=== PATIENT | female | born 1995 | race Caucasian/White ===

== ENCOUNTER → 2016-06-21 | Outpatient (CLI) | payer MEDICAID ==
[~2016-06-21] MED LIST: AMOX500C2 PO; CYCL10TA9 PO; NAPR500T3 PO; PRD20T PO; TRIA15CR TP
--- NOTE | 2016-06-21 18:07 | Diagnostic Imaging Report ---
INDICATION: Size and dates. TECHNIQUE: OB sonography performed in the routine fashion. FINDINGS: A single live intrauterine fetus is seen measuring at 9 weeks 4 days by crown-rump length. There was no evidence of subchorionic bleed. heart rate is 133 beats per minute. Ovaries were nonvisualized. There is no free fluid. IMPRESSION: Single live intrauterine fetus measuring 9 weeks 4 days in size. There were no detectable abnormalities. Recommend followup later in for full anatomical survey. Dictated by: Dictated on workstation # [id number]
== END ==
LOC: RAD 13:59
PROVIDERS: ATTEND Family Medicine
DX: Z34.02 Encounter for supervision of normal first pregnancy, second trimester (principal)
CPT/HCPCS: 76801

== ENCOUNTER 2016-09-01 20:27 | Emergency (ER) | payer MEDICAID ==
[~2016-09-01] VITALS: Ht 154.9 cm; Wt 81.6 kg
--- NOTE | 2016-09-01 21:07 | ED GU-Female ---
General Chief Complaint: General Problems/Pain Stated Complaint: GROIN PAIN Nursing Triage Note: PT AMB TO ED REPORTING WAS CHASING HER NEICE 1 HR AGO AND NOW DEVELOPED A DEEP RIGHT GROIN PAIN. DENIES CONTRACTIONS/PELVIC PAIN. Source: patient, family Exam Limitations: no limitations History of Present Illness Time seen by provider: 21:07 Initial Comments 20-year-old female patient presents to the emergency department with complaints of right groin pain. Patient states she was chasing her niece in the yard when she began having right groin pain. States she thinks she pulled muscle. Denies vaginal discharge or vaginal bleeding. Denies falling. Timing/Duration: other (one hour prior to arrival) Severity/Quality: aching Location: groin (right groin) Radiation: none Activities at Onset: other (running) Prior Genitourinary Problems: none Modifying Factors: Worsens With Movement, Worsens With Palpation Associated Symptoms: denies symptoms Allergies and Home Medications Allergies Coded Allergies: No Known Drug Allergies (Unverified , 01/31/09) Home Medications Amoxicillin 500 Mg Capsule, 1 EACH PO TID for 7 Days Prescribed by: MAX BILLINGS on 07/05/132026 Cyclobenzaprine HCl 10 Mg Tablet, 10 MG PO Q8H, #15 Prescribed by: DENIZ JOHNSON on 01/13/16 0032 Naproxen 500 Mg Tablet, 500 MG PO BID, #20 Prescribed by: DENIZ JOHNSON on 01/13/16 0032 Prednisone 20 Mg Tab, 60 MG PO DAILY for 4 Days, Ref 0 Prescribed by: YADI WEI on 01/07/15 2355 Triamcinolone Acetonide 15 Gm Cream..g., 1 GM TP BID, #30 Ref 0 Prescribed by: YADI WEI on 01/07/15 2358 Constitutional: no symptoms reported Respiratory: No cough, No short of breath Cardiovascular: No chest pain, No edema, No palpitations Gastrointestinal: No abdominal pain, No loss of appetite, No nausea, No vomiting Genitourinary: denies burning, denies discharge, denies dysuria, denies frequency, denies flank pain, denies hematuria, pain (right groin pain), denies other (denies vaginal bleeding) : Yes Expected Date of Delivery: Jan 20, 2017 LMP: Mar 05, 2016 Musculoskeletal: No back pain, joint pain (right groin), No joint swelling Skin: no symptoms reported Psychiatric/Neurological: No Symptoms Reported All Other Systemes Reviewed Negative Unless Noted: Yes (Negative excepted noted.) Past Oqrdesk-Koagsh-Akgwqs Hx Patient Social History Alcohol Use: Denies Use Recreational Drug Use: No Smoking Status: Never a Smoker Recent Foreign Travel: No Contact w/Someone Who Travel: No Recent Infectious Disease Expo: No Recent Hopitalizations: No Seasonal Allergies Seasonal Allergies: No Surgeries HX Surgeries: No Respiratory Hx Respiratory Disorders: No Cardiovascular Hx Cardiac Disorders: No Neurological Hx Neurological Disorders: No Reproductive System : Yes Hx : 1 Hx Para: 0 Hx Reproductive Disorders: No Female Reproductive Disorders: Denies Genitourinary Hx Genitourinary Disorders: No Gastrointestinal Hx Gastrointestinal Disorders: No Musculoskeletal Hx Musculoskeletal Disorders: No Endocrine Hx Endocrine Disorders: No HEENT HX ENT Disorders: No Cancer Hx Cancer: No Psychosocial Hx Psychiatric Problems: No Integumentary HX Skin/Integumentary Disorder: No Blood Transfusions Hx Blood Disorders: No Reviewed Nursing Assessment Reviewed/Agree w Nursing PMH: Yes Family Medical History Significant Family History: No Pertinent Family Hx Physical Exam Vital Signs Vital Sign - Last 12Hours 09/01/16 20:39 Temp 97.2 Pulse 102 Resp 20 B/P (MAP) 143/95 O2 Delivery Room Air Capillary Refill : General Appearance: WD/WN, no apparent distress Cardiovascular: normal peripheral pulses, regular rate, rhythm, no murmur Respiratory: lungs clear, normal breath sounds, no respiratory distress Gastrointestinal: normal bowel sounds, non tender, soft, No distended, other ( uteromegaly noted. Rt groin TTP w/o swelling or deformity.) Back: normal inspection, no CVA tenderness, no vertebral tenderness Extremities: normal range of motion, normal inspection, normal capillary refill , pelvis stable, pedal edema (trace pedal edema bilaterally.), other (rt groin TTP.) Neurologic/Psychiatric: no motor/sensory deficits, alert, normal mood/affect, oriented x 3 Skin: normal color, warm/dry Progress/Results/Core Measures Results/Orders Lab Results Laboratory Tests Test 09/01/16 21:03 Range/Units Urine Color YELLOW Urine Clarity SLIGHTLY CLOUDY Urine pH 6 5-9 Urine Specific [place] 1.020 1.016-1.022 Urine Protein NEGATIVE NEGATIVE Urine Glucose (UA) NEGATIVE NEGATIVE Urine Ketones NEGATIVE NEGATIVE Urine Nitrite NEGATIVE NEGATIVE Urine Bilirubin NEGATIVE NEGATIVE Urine Urobilinogen NORMAL NORMAL MG/DL Urine Leukocyte Esterase 2+ H NEGATIVE Urine RBC (Auto) 3+ H NEGATIVE Urine RBC NONE /HPF Urine WBC 5-10 H /HPF Urine Squamous Epithelial Cells 10-25 H /HPF Urine Crystals NONE /LPF Urine Bacteria TRACE /HPF Urine Casts NONE /LPF Urine Mucus SMALL H /LPF Urine Culture Indicated YES My Orders Orders - WARREN JUNG Ua Culture If Indicated (09/01/16 21:00) Heart Tones (09/01/16 21:00) Urine Culture (09/01/16 21:03) Vital Signs/I&O Vital Sign - Last 12Hours 09/01/16 20:39 Temp 97.2 Pulse 102 Resp 20 B/P (MAP) 143/95 O2 Delivery Room Air Departure Communication Progress Notes FHT's 156 per Traci Kimble RN. Laboratory findings discussed with the patient. Plan for discharge to home. Patient given a prescription for 3 days of Keflex. Patient to follow-up this week with her manager of transportation. Impression Impression: Primary Impression: Strain of muscle of right groin region Additional Impressions: Urinary tract infection with 19 completed weeks gestation Disposition: HOME, SELF-CARE Condition: Improved Departure-Patient Inst. Decision time for Depature: 21:41 Referrals: ANNA BURRELL MD (PCP/Family) Primary Care Physician Patient Instructions: Muscle Strain (DC), Urinary Tract Infection, Adult (DC) Add. Discharge Instructions: All discharge instructions reviewed with patient and/or family. Voiced understanding. Medications as instructed. Tylenol [id number]-viy-[id number] as directed for pain. No heavy lifting, pushing, pulling, twisting, bending, climbing 7 days. Follow-up with your manager of transportation this week for recheck. Call for appointment time. Return to the emergency department for worsened pain , numbness, weakness, vaginal bleeding, vaginal discharge, or any other concerns. Scripts Cephalexin (Keflex) 500 Mg Capsule 500 MG PO TID, #6 CAP 0 Refills Prov: WARREN JUNG 09/01/16 WARREN JUNG Sep 01, 2016 21:07
[2016-09-01 21:13] LABS: BILIRUBIN,URINE NEGATIVE (NEGATIVE); KETONES,URINE NEGATIVE (NEGATIVE); LEUKOCYTE ESTERASE ,URINE 2+ (NEGATIVE); NITRITE,URINE NEGATIVE (NEGATIVE); PH,URINE 6 (5-9); PROTEIN,URINE NEGATIVE (NEGATIVE); UROBILINOGEN,URINE NORMAL (NORMAL)
[2016-09-01] MEDS ORDERED: CEPH-507 PO (21:43)
== END 2016-09-01 21:46 | disposition home or self-care (01) ==
LOC: EDUNIT# 20:27 → ER 20:32
DX: O9A.212 Injury, poisoning and certain other consequences of external causes complicating pregnancy, second trimester (principal); S76.911A Strain of unspecified muscles, fascia and tendons at thigh level, right thigh, initial encounter; O23.42 Unspecified infection of urinary tract in pregnancy, second trimester; Z3A.19 19 weeks gestation of pregnancy; X50.9XXA Other and unspecified overexertion or strenuous movements or postures, initial encounter; Y92.096 Garden or yard of other non-institutional residence as the place of occurrence of the external cause
CPT/HCPCS: 81000; 87088; 99283

== ENCOUNTER → 2016-09-20 | Outpatient (CLI) | payer MEDICAID ==
[~2016-09-20] MED LIST changes: +CEPH-507 PO
--- NOTE | 2016-09-20 14:28 | Diagnostic Imaging Report ---
INDICATION: survey. TECHNIQUE: Multiple real-time grayscale images were obtained over the gravid uterus. COMPARISON: 06/21/2016. FINDINGS: The heart rate is 153 beats per. There is adequate amniotic fluid identified. The placenta is posterior. No placenta previa. A survey demonstrates no ventriculomegaly. The cisterna magna and the cerebellum are not well seen. The four-chamber view is not well seen. The stomach and the urinary bladder appear unremarkable. The kidneys demonstrate no hydronephrosis or cystic mass. The upper and lower aspects of the spine are not well seen. The cord insertion and three-vessel cord also are not well demonstrated. This appears to relate to the patient's body habitus and also from position related difficulty. Biometrical measurements are as follows: Biparietal 5.9 cm, age 24 weeks 0 days. Head circumference 21.2 cm, age 23 weeks 2 days. Abdominal circumference 18.1 cm, age 23 weeks 1 days. Femur length 4.0 cm, age 23 weeks 0 days. Sonographic estimate age: 23 weeks 3 days. Sonographic estimated date of delivery: 23. Estimated Weight: 3 gm (+/- 556 gm). LMP percentile: 67%. heart rate: 153 beats per minute. number: 1 of 1. IMPRESSION: The four-chamber view, the upper and lower spine, the cord insertion, cerebellum and the cisterna magna and the three-vessel cord are not well demonstrated on this exam due to large maternal body habitus and position. Reevaluation within two weeks is recommended. Dictated by: Dictated on workstation # [id number]
== END ==
LOC: RAD 11:47
PROVIDERS: ATTEND Family Medicine
DX: Z36 Encounter for antenatal screening of mother (principal); Z3A.23 23 weeks gestation of pregnancy
CPT/HCPCS: 76805

== ENCOUNTER → 2016-10-02 | Outpatient (CLI) | payer MEDICAID ==
[~2016-10-02] MED LIST changes: +DOCU100C37 PO; +HYDR-3812 PO; +IBUP-1773 PO; -NAPR500T3 PO; +NAPR500T4 PO
--- NOTE | 2016-10-02 13:41 | Diagnostic Imaging Report ---
INDICATION: Follow-up spine, four-chamber heart, and cord insertion. TECHNIQUE: Multiple real-time grayscale images were obtained over the gravid uterus. COMPARISON: None FINDINGS: There is a single living intrauterine in a variable presentation. There is normal volume amniotic fluid. The placenta is fundal. There is no previa. The anatomical survey is unremarkable. The heart rate is 149 beats per minute. IMPRESSION: Unremarkable anatomic survey with heart rate of 149 beats per minute. The sonographically estimated gestational age by first sonogram is 24 weeks 2 days and estimated date of confinement January 20, 2017. Dictated by: Dictated on workstation # [id number]
== END ==
LOC: RAD 10:05
PROVIDERS: ATTEND Family Medicine
DX: Z34.02 Encounter for supervision of normal first pregnancy, second trimester (principal); Z3A.24 24 weeks gestation of pregnancy
CPT/HCPCS: 76816

== ENCOUNTER 2016-11-22 14:42 | Outpatient (CLI) | payer MEDICAID ==
[~2016-11-22] VITALS: Ht 154.9 cm; Wt 90.3 kg
[~2016-11-22 14:42] MED LIST changes: -DOCU100C37 PO; -HYDR-3812 PO; -IBUP-1773 PO; +NAPR500T3 PO; -NAPR500T4 PO
[2016-11-22 15:01] VITALS: BP 112/67
[2016-11-22 15:21] LABS: BILIRUBIN,URINE NEGATIVE (NEGATIVE); KETONES,URINE NEGATIVE (NEGATIVE); LEUKOCYTE ESTERASE ,URINE 1+ (NEGATIVE); NITRITE,URINE NEGATIVE (NEGATIVE); PH,URINE 7 (5-9); PROTEIN,URINE 1+ (NEGATIVE); UROBILINOGEN,URINE NORMAL (NORMAL)
[2016-11-22 15:35] LABS: WBC,URINE 2.5 /HPF
[2016-11-22 15:50] VITALS: BP 105/58
[2016-11-22] MEDS ORDERED: LACTATED RINGERS 1,000 ML IV ONE (15:53)
--- NOTE | 2016-11-23 12:54 | Physician Query-Final Dx ---
MINA CHOUDHARY 11/23/16 1254: Clinic Account Progress/Dx Physician Query: Please give diagnosis Date of Service Nov 22, 2016 at 14:42 DEXTER REYNOLDS DO 11/27/16 0628: Clinic Account Progress/Dx DIAGNOSIS: Diagnosis 1. 30 week GA 2. dehydration - treated w/ IVF 3. GBS bacturia MINA CHOUDHARY Nov 23, 2016 12:54 DEXTER REYNOLDS DO Nov 27, 2016 06:28
== END 2016-11-22 18:14 | disposition home or self-care (01) ==
LOC: LDRP 14:42 → WSo 14:42
PROVIDERS: ATTEND Family Medicine
DX: O99.820 Streptococcus B carrier state complicating pregnancy (principal); E86.0 Dehydration; Z3A.30 30 weeks gestation of pregnancy
CPT/HCPCS: 81000; 87088; 96360; 99214

== ENCOUNTER 2016-12-25 21:17 | Outpatient (CLI) | payer MEDICAID ==
[~2016-12-25] VITALS: Ht 152.4 cm; Wt 93.6 kg
[2016-12-25 21:50] LABS: BILIRUBIN,URINE NEGATIVE (NEGATIVE); KETONES,URINE NEGATIVE (NEGATIVE); LEUKOCYTE ESTERASE ,URINE 2+ (NEGATIVE); NITRITE,URINE NEGATIVE (NEGATIVE); PH,URINE 6 (5-9); PROTEIN,URINE 1+ (NEGATIVE); UROBILINOGEN,URINE 1 MG/DL (NORMAL)
[2016-12-25 21:53] VITALS: BP 122/67
[2016-12-25 21:59] LABS: SQUAMOUS EPITHELIAL CELL,UR 0-2 /HPF
[2016-12-25] MEDS ORDERED: AMOX500C2 PO (22:51)
--- NOTE | 2016-12-26 10:49 | Physician Query-Final Dx ---
MINA CHOUDHARY 12/26/16 1049: Clinic Account Progress/Dx Physician Query: Please give diagnosis Date of Service Dec 25, 2016 at 21:17 ANNA BURRELL MD 12/26/16 1328: Clinic Account Progress/Dx DIAGNOSIS: Diagnosis Pelvic pain 36 weeks gestation Decreased movement with reactive NST MINA CHOUDHARY Dec 26, 2016 10:49 ANNA BURRELL MD Dec 26, 2016 13:28
== END 2016-12-25 23:05 | disposition home or self-care (01) ==
LOC: LDRP 21:17 → WSo 21:17
PROVIDERS: ATTEND Family Medicine
DX: O26.93 Pregnancy related conditions, unspecified, third trimester (principal); R10.2 Pelvic and perineal pain; O36.8130 Decreased fetal movements, third trimester, not applicable or unspecified; Z3A.36 36 weeks gestation of pregnancy
CPT/HCPCS: 81000; 87088; 99213

== ENCOUNTER → 2016-12-28 | Outpatient (CLI) | payer MEDICAID ==
--- NOTE | 2016-12-28 11:31 | Diagnostic Imaging Report ---
INDICATION: Excessive growth. TECHNIQUE: Multiple real-time grayscale images were obtained over the gravid uterus. COMPARISON: 10/02/16 FINDINGS: Single live intrauterine with heart rate of 158 beats per minute. The ALBIN appears low and has measurements at the lower limits of normal of 5 cm. biometric data is supplied below. Biometrical measurements are as follows: Biparietal 9.64 cm, age 39 weeks 3 days. Head circumference 33.66 cm, age 38 weeks 5 days. Abdominal circumference 35.13 cm, age 39 weeks 1 days. Femur length 7.17 cm, age 36 weeks 6 days. Sonographic estimate age: 38 weeks 4 days. Sonographic estimated date of delivery: 01/07/17. Estimated Weight: 3519 gm (+/- 514 gm). LMP percentile: 93%. heart rate: 158 beats per minute. number: 1 of 1. IMPRESSION: 1. Single live intrauterine which is in the 93rd percentile for weight. 2. Borderline low amniotic fluid index which is likely in part due to large size. Dictated by: Dictated on workstation # [id number]
== END ==
LOC: RAD 09:43
PROVIDERS: ATTEND Family Medicine
DX: O36.63X0 Maternal care for excessive fetal growth, third trimester, not applicable or unspecified (principal); Z3A.38 38 weeks gestation of pregnancy
CPT/HCPCS: 36415; 76816; 82951; 82952; 82962

== ENCOUNTER 2016-12-29 16:26 | Outpatient (CLI) | payer MEDICAID ==
[~2016-12-29] VITALS: Ht 152.4 cm; Wt 93.6 kg
[2016-12-29 16:41] VITALS: BP 131/63
--- NOTE | 2016-12-31 16:07 | Physician Query-Final Dx ---
RAMY RANGEL 12/31/16 1607: Clinic Account Progress/Dx Physician Query: Please give diagnosis Date of Service Dec 29, 2016 at 16:26 DEXTER REYNOLDS DO 01/14/17 0833: Clinic Account Progress/Dx DIAGNOSIS: Diagnosis 1. 36 wk GA 2. Decreased movement - reactive NST RAMY RANGEL Dec 31, 2016 16:07 DEXTER REYNOLDS DO Jan 14, 2017 08:33
== END 2016-12-29 17:25 | disposition home or self-care (01) ==
LOC: WSo 16:26 → LDRP 16:27 → WSo 17:25
PROVIDERS: ATTEND Family Medicine
DX: O36.8130 Decreased fetal movements, third trimester, not applicable or unspecified (principal); Z3A.36 36 weeks gestation of pregnancy
CPT/HCPCS: 99212

== ENCOUNTER → 2016-12-31 | Outpatient (CLI) | payer MEDICAID ==
[2016-12-31 14:01] VITALS: BP 121/75
--- NOTE | 2016-12-31 14:20 | Diagnostic Imaging Report ---
EXAMINATION: OB ultrasound with biophysical profile. INDICATION: 028.8, decreased amniotic fluid index. FINDINGS: The heart rate is 115 BPM. The presentation is cephalic. The amniotic fluid index is 6.3 cm. The biophysical profile criteria are all met with a total score of 8 out of 8 points. IMPRESSION: The biophysical profile score is 8 out of 8 points. The ALBIN is near the lower limits of normal. Dictated by: Dictated on workstation # [id number]
== END ==
LOC: RAD 12:23
PROVIDERS: ATTEND Family Medicine
DX: O28.8 Other abnormal findings on antenatal screening of mother (principal); Z3A.00 Weeks of gestation of pregnancy not specified
CPT/HCPCS: 76819

== ENCOUNTER → 2017-01-07 | Outpatient (CLI) | payer MEDICAID ==
[~2017-01-07] VITALS: Ht 152.4 cm; Wt 93.7 kg
[2017-01-07 11:40] VITALS: BP 137/84
--- NOTE | 2017-01-07 13:30 | Diagnostic Imaging Report ---
OB ultrasound. Biophysical profile. INDICATION: Low ALBIN. FINDINGS: The heart rate is 130 beats per minute. presentation is cephalic. The ALBIN is 10 cm. Biophysical profile parameters are all normal. IMPRESSION: Total biophysical profile score is 8 out of 8. Dictated by: Dictated on workstation # [id number]
== END ==
LOC: RAD 10:38
PROVIDERS: ATTEND Family Medicine
DX: O28.8 Other abnormal findings on antenatal screening of mother (principal); Z3A.00 Weeks of gestation of pregnancy not specified
CPT/HCPCS: 76819

== ENCOUNTER 2017-01-09 22:27 | Inpatient (IN) | payer MEDICAID ==
[~2017-01-09] VITALS: Ht 152.4 cm; Wt 95.3 kg
[2017-01-09 22:45] VITALS: BP 135/97
[2017-01-09] MEDS ORDERED: D5 LR IV SOLUTION 1,000 ML IV ONE (22:55)
[2017-01-09] MEDS ORDERED: AMPICILLIN 2000 MG INJECTION (IM/IV) ONE (22:55)
[2017-01-09] MEDS ORDERED: NS (IVPB) 50 ML ONE (22:56)
[2017-01-09 23:00] VITALS: BP 134/90
[2017-01-09] MEDS: AMPICILLIN INJECTION 2,000 MG in NS (IVPB) 50 ML IV ONE (23:20)
[2017-01-09] MEDS: D5 LR IV SOLUTION 1,000 ML IV SCH (23:20)
[2017-01-09] MEDS ORDERED: BUTORPHANOL INJ 2 MG/ML (STADOL) VIAL ONE (23:44)
[2017-01-09] MEDS: BUTORPHANOL INJ 2 MG/ML (STADOL) VIAL IV PRN (23:55)
[2017-01-10] VITALS (39 sets, daily range): BP systolic 108–139; BP diastolic 59–93
[2017-01-10 00:36] LABS: BASOPHILS % (AUTO) 0 % (0-10); EOSINOPHILS % (AUTO) 1 % (0-10); LYMPHOCYTES # (AUTO) 3.2 X 10^3 (1.0-4.0); LYMPHOCYTES % (AUTO) 21 % (12-44); MEAN CORPUSCULAR HEMOGLOBIN 30 PG (25-34); MEAN CORPUSCULAR HGB CONC 34 G/DL (32-36); MEAN CORPUSCULAR VOLUME 88 FL (80-99); MEAN PLATELET VOLUME 10.8 FL (7.4-10.4); MONOCYTES % (AUTO) 8 % (0-12); NEUTROPHILS # (AUTO) 10.3 X 10^3 (1.8-7.8); NEUTROPHILS % (AUTO) 69 % (42-75); PLATELET COUNT 224 10^3/uL (130-400); RED BLOOD COUNT 3.98 10^6/uL (4.35-5.85); RED CELL DISTRIBUTION WIDTH 16.4 % (10.0-14.5)
[2017-01-10 00:37] LABS: EOSINOPHILS # (AUTO) 0.2 10^3/uL (0.0-0.3); MONOCYTES # (AUTO) 1.3 X 10^3 (0.0-1.0)
[2017-01-10 00:38] LABS: ANISOCYTOSIS SLIGHT; BAND NEUTROPHILS 0 %; BASOPHILS % (MANUAL) 0 %; EOSINOPHILS % (MANUAL) 0 %; LYMPHOCYTES % (MANUAL) 20 %; NEUTROPHILS % (MANUAL) 72 %; POLYCHROMASIA SLIGHT
[2017-01-10] MEDS ORDERED: D5 LR IV SOLUTION 1,000 ML IV SCH (00:40)
[2017-01-10] MEDS ORDERED: MINERAL OIL CONCENTRATE 99.9% 15 ML UDC TOP PRN (00:45)
[2017-01-10] MEDS ORDERED: ONDANSETRON 4 MG/2 ML (SDV) Z0FRAN IVP PRN ×2 (00:45→12:00)
[2017-01-10] MEDS: BUTORPHANOL INJ 2 MG/ML (STADOL) VIAL IV PRN ×2 (01:05→03:42)
[2017-01-10] MEDS: AMPICILLIN INJECTION 1,000 MG in NS (IVPB) 50 ML IV SCH ×2 (03:41→07:30)
[2017-01-10] MEDS: AMPICILLIN INJECTION 2,000 MG in NS (IVPB) 50 ML IV ONE (03:41)
[2017-01-10] MEDS: D5 LR IV SOLUTION 1,000 ML IV SCH ×2 (05:42→09:59)
[2017-01-10] MEDS ORDERED: CATHETER FLUSH 10 ML SYR IV SCH ×2 (06:00→14:00)
[2017-01-10] MEDS ORDERED: SUFENTA 0.6MCG/ML BUPIVA 0.125 100 ML ONE (06:35)
[2017-01-10] MEDS ORDERED: BUPIVACAINE 0.25% 30 ML (SENSORCAINE) VIAL ONE (06:38)
[2017-01-10] MEDS ORDERED: LIDOCAINE PF 2% 5 ML (XYLOCAINE) VIAL ONE ×2 (06:38→09:55)
[2017-01-10] MEDS ORDERED: fentaNYL INJECTION 100 MCG/2 ML AMP ONE ×2 (06:38→09:55)
--- NOTE | 2017-01-10 07:43 | Progress Note (SOAP) ---
Subjective Subjective/Events-last exam At 38 4/7 wks gestation was admitted last night with spontaneous rupture of membranes with clear fluid noted. The patient is reported to be GBS positive and has NKDA, and was started on Ampicillin 2 grams IVPB, then 1 gram IVPB every 4 hours until delivery. She has been afebrile overnight. She has refused an epidural, but has already received 4 doses of IV stadol, and I was contacted by the nursing staff due to concerns about FHR tracing and additional doses of IV narcotics - FHR tracing is overall "okay" but is not currently reactive and pt having some variables with a dysfunctional contraction pattern. Patient having difficulty breathing with contractions, reports that she did not want an epidural because she knows a lot of people who have back problems from it, but she "just wants this baby out". Mother, FOB, and other family members present at bedside. They report that estimated weight was ~8 lbs last week. Review of Systems Date Seen by Provider: Jan 10, 2017 Time Seen by Provider: 05:30 General: No Chills, No Night Sweats, Fatigue HEENT: No Head Aches, No Visual Changes, No Eye Pain Pulmonary: No Dyspnea, No Cough Cardiovascular: Edema, No: Chest Pain, Palpitations Gastrointestinal: No: Nausea, Vomiting Genitourinary: No Incontinence, No Retention Musculoskeletal: back pain Neurological: No: Weakness, Numbness, Change in speech, Seizures Objective Exam Last Set of Vital Signs Vital Signs Date Time Temp Pulse Resp B/P (MAP) Pulse Ox O2 Delivery O2 Flow Rate FiO2 01/10/17 06:50 90 18 126/71 Room Air 01/10/17 06:20 98.6 Capillary Refill : General: Alert, Oriented X3, Cooperative, No Acute Distress HEENT: Atraumatic, Mucous Memb Moist/[place] Neck: Supple, No Thyromegaly Lungs: Normal Air Movement Abdomen: Soft (palpates soft between contractions), Other (contractions moderate to palpation) Extremities: No Clubbing, No Cyanosis Skin: No Rashes, No Significant Lesion Neuro: Normal Speech, Normal Tone, Sensation Intact, Cranial Nerves 3-12 NL Psych/Mental Status: Mental Status NL, Mood NL Results/Procedures Lab Laboratory Tests 01/09/17 23:15: White Blood Count 15.0H, Red Blood Count 3.98L, Hemoglobin 11.8, Hematocrit 35, Mean Corpuscular Volume 88, Mean Corpuscular Hemoglobin 30, Mean Corpuscular Hemoglobin Concent 34, Red Cell Distribution Width 16.4H, Platelet Count 224, Mean Platelet Volume 10.8H, Neutrophils (%) (Auto) 69, Lymphocytes (%) (Auto) 21 , Monocytes (%) (Auto) 8, Eosinophils (%) (Auto) 1, Basophils (%) (Auto) 0, Neutrophils # (Auto) 10.3H, Lymphocytes # (Auto) 3.2, Monocytes # (Auto) 1.3H, Eosinophils # (Auto) 0.2, Basophils # (Auto) 0.0, Neutrophils % (Manual) 72, Lymphocytes % (Manual) 20, Monocytes % (Manual) 8, Eosinophils % (Manual) 0, Basophils % (Manual) 0, Band Neutrophils 0, Polychromasia SLIGHT, Anisocytosis SLIGHT Assessment/Plan Assessment/Plan Admission Dx Spontaneous Rupture of Membranes 38 4/7 wks Gestation GBS Positive Active Labor Plan Spontaneous Rupture of Membranes at 38 4/7 wks Gestation -afebrile -continue to monitor temp GBS Positive -ampicillin for GBS prophylaxis Active Labor -FHR Category II now, after receiving several doses of IV Stadol -FHR Category I on arrival, reassuring and reactive initially -contractions every 1.5-3 minutes -patient very intolerant to position changes due to discomfort, and having difficulty breathing with contractions -discussed options, patient and family are in agreement that she will try an epidural for pain control and see if that helps her progress, as she has not made significant progress in the last 2 hours -- was 5 cm at 0330, is still 5 cm now at 0530 SVE done after epidural placement, FHR remains Category II. Dr. Thornton contacted , notified of pt admission, events overnight, FHR tracing, somewhat dysfunctional contraction pattern, head currently in ROP position, she will assume care. Care of patient turned over to Dr. Thornton at this time. BROOK SEVERINO DO Jan 10, 2017 07:43
[2017-01-10] MEDS ORDERED: LACTATED RINGERS 1,000 ML IV ONE (07:51)
[2017-01-10] MEDS ORDERED: diphenhydrAMINE 50 MG/ML INJ (BENADRYL) IV PRN (08:00)
[2017-01-10] MEDS ORDERED: EPIDURAL (SUFENTA 0.6MCG/ML BUPIVA 0.125%) 100 ML BAG EPI SCH (08:00)
[2017-01-10] MEDS ORDERED: ONDANSETRON 4 MG/2 ML (SDV) Z0FRAN IV PRN (08:00)
[2017-01-10] MEDS ORDERED: CATHETER FLUSH 10 ML SYR IV PRN (08:00)
[2017-01-10] MEDS ORDERED: NALOXONE 0.4 MG/ML 1 ML (NARCAN) VIAL IV PRN (08:00)
[2017-01-10] MEDS ORDERED: METOCLOPRAMIDE INJ 10 MG/2 ML (REGLAN) ONE (09:43)
[2017-01-10] MEDS ORDERED: FAMOTIDINE 20MG/2ML IV (PEPCID) ONE (09:44)
[2017-01-10] MEDS ORDERED: CITRIC ACID/SOB CIT (BICITRA) 30 ML UDC ONE (09:44)
[2017-01-10] MEDS ORDERED: BUPIVACAINE 0.5% 30 ML (SENSORCAINE) VIAL ONE (09:55)
[2017-01-10] MEDS ORDERED: ceFAZolin 2 GM/50 ML NS 50 ML ONE (09:58)
--- NOTE | 2017-01-10 10:02 | History & Physical-OB ---
OB - Chief Complaint & HPI Date/Time Date of Admission: Date of Admission: Jan 10, 2017 at 12:33 am Time Seen by Provider: 09:30 Chief Complaint/History OB-Reason for Admission/Chief: Rupture of Membranes Hx : 1 Hx Para: 0 Expected Date of Delivery: Jan 20, 2017 Gestational Age in Weeks: 38 Gestational Age in Days: 4 History of Labs A negative, antibody negative, RI. HIV/HepB/RPR NR. GC/chlamydia neg. Declined tetra screen. Normal 1 hour glucose tolerance test. GBS positive. Allergies and Home Medications Allergies Coded Allergies: No Known Drug Allergies (Unverified , 01/31/09) Home Medications No Active Prescriptions or Reported Meds OB - History Hx of Present Care: Yes Ultrasounds: Abnormal US findings (borderline low ALBIN at 36w3d with EFW 3500, repeat BPP/ALBIN weekly since with nml ALBIN and 10/23 BPP) Obstetrical Complications: None Medical Complications: None Obstetrical History Hx : 1 Hx Para: 0 Delivery History Hx Blood Disorders: No Patient Past Medical History PMHx: Denies PSurgHx: Denies Social History/Family History HIV/AIDS: No Recent Infectious Disease Expo: No Sexually Transmitted Disease: No Alcohol Use: Denies Use Recreational Drug Use: No Smoking Cessation: Never smoker Immunizations Date of Influenza Vaccine: Dec 05, 2016 Rubella: immune RPR/VDRL: Negative GBS Status: Positive HBsAG: Negative OB - Admission Exam Physical Exam Vitals: Vital Signs 01/10/17 01/10/17 06:20 08:15 Temp 98.6 Pulse 88 Resp 18 B/P (MAP) 125/78 Pulse Ox 100 O2 Delivery Room Air HEENT: NCAT Abdomen: Gravid Cervical Dilatation: 6cm Effacement: Other (90%) Station: -2 Membranes: Ruptured Amniotic Fluid: Clear Decelerations: Variable Decelerations Short Term Variability: Present Contractions on Admission: < 5 Minutes Apart Labs Laboratory Tests Test 01/09/17 23:15 Range/Units White Blood Count 15.0 H 4.3-11.0 10^3/uL Red Blood Count 3.98 L 4.35-5.85 10^6/uL Hemoglobin 11.8 11.5-16.0 G/DL Hematocrit 35 35-52 % Mean Corpuscular Volume 88 80-99 FL Mean Corpuscular Hemoglobin 30 25-34 PG Mean Corpuscular Hemoglobin Concent 34 32-36 G/DL Red Cell Distribution Width 16.4 H 10.0-14.5 % Platelet Count 224 130-400 10^3/uL Mean Platelet Volume 10.8 H 7.4-10.4 FL Neutrophils (%) (Auto) 69 42-75 % Lymphocytes (%) (Auto) 21 12-44 % Monocytes (%) (Auto) 8 0-12 % Eosinophils (%) (Auto) 1 0-10 % Basophils (%) (Auto) 0 0-10 % Neutrophils # (Auto) 10.3 H 1.8-7.8 X 10^3 Lymphocytes # (Auto) 3.2 1.0-4.0 X 10^3 Monocytes # (Auto) 1.3 H 0.0-1.0 X 10^3 Eosinophils # (Auto) 0.2 0.0-0.3 10^3/uL Basophils # (Auto) 0.0 0.0-0.1 10^3/uL Neutrophils % (Manual) 72 % Lymphocytes % (Manual) 20 % Monocytes % (Manual) 8 % Eosinophils % (Manual) 0 % Basophils % (Manual) 0 % Band Neutrophils 0 % Polychromasia SLIGHT Anisocytosis SLIGHT OB - Assessment/Plan/Diagnosis Assessment Assessment: group B positive strep, rupture of membranes, other ( intolerance of labor with protracted labor) Plan Plan: Expectant Management Other Plan -Discussed increasing frequency and depth of variable decelerations with Dr. Rocha and given minimal cervical undercover operator several hours with recurrent variable decelerations and prolonged decelerations, and after discussion with Roro and her family, decision made to proceed to for intolerance and protracted labor. -Ampicillin started on admission for GBS positive status Copy Copies To 1: ANNA BURRELL MD, BETHANY N MD Jan 10, 2017 10:01 am
[2017-01-10] MEDS ORDERED: OXYTOCIN/NORMAL SALINE 1,000 ML IV ONE (10:10)
--- NOTE | 2017-01-10 10:13 | Progress Note-Standard ---
Standard Progress Note Progress Notes/Assess & Plan Date Seen by Provider: Jan 10, 2017 Time Seen by Provider: 10:05 Progress/Assessment & Plan this 21-year-old is a intrapartum consult from Dr. Thornton for intolerance of labor. The patient was admitted last evening spontaneous rupture membranes was noted. She had intermittent heart rate tracings that were unfavorable with variables down into the 80s to 90s, she is progressed only to 6 cm however continues to have a baseline that is in the 100s with variables down into the 60s at times. scalp electrode was placed, which revealed this was tracing due to lack of progression and intolerance of labor section was recommended. Risk was briefly reviewed with the patient and her family was bedside versus risks to the fetus. Consent was obtained and patient is taken to the operating room for urgent procedure. LUKE MAGUIRE DO Jan 10, 2017 10:13
[2017-01-10] MEDS: KETOROLAC 30 MG/ML VIAL IVP SCH ×3 (10:30→23:27)
[2017-01-10] MEDS ORDERED: KETAMINE HCL 100 MG/ML 5 ML VIAL ONE (10:33)
[2017-01-10] MEDS ORDERED: KETOROLAC 30 MG/ML VIAL ONE (11:02)
[2017-01-10] MEDS ORDERED: OXYTOCIN/NORMAL SALINE 500 ML IV SCH (11:46)
--- NOTE | 2017-01-10 11:49 | Discharge Inst-Women's Service ---
Discharge Inst-Women's Serv Depart Medication/Instructions New, Converted or Re-Newed RX: RX on Chart Consults/Follow Up Additional Follow Up: Yes Orders/Referrals Dr. Rocha in 7-[address] Thornton in 6 weeks. Activity Activity: Activity as Tolerated Driving Instructions: No Driving for 1 Week NO SMOKING: NO SMOKING Nothing Inside Vagina: No Douching, No [place], No Tampons Diet Discharge Diet: No Restrictions Symptoms to Report to : Bleeding Excessive, Pain Increased, Fever Over 101 Degrees F, Vaginal Bleeding Increase, Questions/Concerns For Any Problems or Questions: Contact Your Physician Skin/Wound Care Infection Signs and Symptoms: Increased Redness, Foul Odor of Wound, Increased Drainage, Skin Itchy or Has a Rash, Increased Swelling, Temperature Above 101 F Operative Area Clean and Dry: Keep Incision Clean/Dry Stitches/Niyah/Dermabond: Dermabond, Care of Stitches Bathing Instructions: LUKE Adamson DO Jan 10, 2017 11:49
[2017-01-10] MEDS ORDERED: HYDR-3812 PO ×2 (11:54)
[2017-01-10] MEDS ORDERED: IBUP-1773 PO ×2 (11:54)
[2017-01-10] MEDS ORDERED: DOCU100C37 PO ×2 (11:54)
[2017-01-10] MEDS ORDERED: TETANUS,DIPTH,PERTUSS P/F (BOOSTRIX) 0.5 ML VIAL IM SCH (12:00)
[2017-01-10] MEDS ORDERED: MEASLES,MUMPS,RUBELLA 1 EA INJ SC SCH (12:00)
[2017-01-10] MEDS ORDERED: HYDROmorphone (DILAUDID) 2 MG/ML VIAL IVP PRN (12:00)
[2017-01-10] MEDS: HYDROcodone/APAP 5 MG/325 MG (LORTAB) TAB PO PRN (16:26)
[2017-01-10] MEDS: CATHETER FLUSH 10 ML SYR IV SCH ×2 (20:25→23:27)
[2017-01-10] MEDS: DOCUSATE SODIUM 100 MG (COLACE) CAP PO SCH (21:28)
--- NOTE | 2017-01-11 00:49 | OPERATIVE REPORT ---
DATE OF SERVICE: PREOPERATIVE DIAGNOSES: 1. A 21-year-old at 38 weeks and 4 days gestation. 2. intolerance of labor. POSTOPERATIVE DIAGNOSES: 1. A 21-year-old at 38 weeks and 4 days gestation. 2. intolerance of labor. PROCEDURE: Primary low transverse section. SURGEON: Booker Rocha DO CLINICAL LEADER: Jessica Ordaz, MS3 ANESTHESIA: Epidural, which was bolused. ESTIMATED BLOOD LOSS: 400 mL. URINE OUTPUT: 500 mL, concentrated at the end of the procedure. FLUID: 500 mL of lactated Ringer solution. FINDINGS: Live male infant weighing 7 pounds 10 ounces, Apgars of 9 and 9. Grossly normal appearing uterus, bilateral fallopian tubes and ovaries. SPECIMEN SENT: Placenta. INDICATIONS FOR PROCEDURE: This 21-year-old female who is a patient who had sought care with Dr. Thornton in her office. She had an unremarkable with the exception of measuring large for dates and having a history of obesity. The patient presented with spontaneous rupture of membranes last evening and was expectantly managed overnight. There were variable decelerations noted throughout the night; however, they became much more repetitive in nature and dropping down into the 80s to 90s. There was also a baseline change down to the 100s to 110s. At this point, the patient had progressed to 6 cm; however, there have been no descent in station. With repetitive variable decelerations and a prolonged episode of deceleration, Dr. Thornton consulted me for emergent delivery. When I presented, I discussed with the patient the indication, all of her questions were answered pertaining to that. I also briefly discussed with her and her family the risk of . After all of her questions were answered, consent was obtained, the patient was taken to the operating room. OPERATIVE REPORT IN DETAIL: Once in the operating room, epidural analgesia was bolused and found to be adequate. She was placed in a supine position with lateral tilt and prepped and draped in normal sterile fashion. A timeout was performed and anesthesia was tested. After this, a Pfannenstiel skin incision was made with a knife and carried down to the underlying fascia using Bovie cautery. The fascial incision was extended laterally using Bovie cautery. Superior aspect of the fascial incision was then grasped with Flower clamps, tented up and dissected off the underlying rectus muscles. The inferior aspect of the fascial incision was then grasped with Flower clamps, tented up and dissected off the underlying rectus muscles. Rectus muscle was then dissected in the midline using Lozada scissors, which exposed the peritoneum, which I entered bluntly and extended using blunt traction. Once peritoneal access was obtained, I placed Jacoby ring retractor in the peritoneal incision, which offers excellent lateral sidewall retraction. The lower uterine segment was identified and found to be thinned out. I made a low transverse incision to the vesicouterine peritoneum and bluntly dissected off the lower uterine segment. I proceeded with my myotomy until membranes were visualized at which point, rupture of membranes through my incision is noted as well. I extended the uterine incision laterally and superiorly using bandage scissors. I find the in the occiput posterior presentation. I placed my hand beneath the infant's presenting head and elevated up to the incision where with gentle fundal pressure, I am able to deliver the 's head through the incision where the nares and oropharynx were bulb suctioned. The anterior and posterior shoulders were delivered. The was then brought into the operative field, where the cord was duly clamped and cut and infant was handed off to Dr. Thornton, who was waiting to assess the infant for delivery. Cord blood was collected, 3-vessel cord with intact placenta is delivered spontaneously thereafter. IV Pitocin is initiated to facilitate uterine contraction. Uterine fundus became firmer with bimanual massage. The uterus was then exteriorized and cleared off all endometrial clots and debris. I then closed the uterine incision using 0 Vicryl suture in a running locking fashion. A second layer of imbricating 0 Monocryl was placed. Excellent hemostasis was noted after doing this. I then placed the uterus back within the pelvis and copiously irrigated the pelvis using normal saline. Once again, no active bleeding was noted from any of my dissection planes. I placed Interceed antiadhesive over my low transverse incision and proceeded with closing the peritoneum using 3-0 Vicryl suture in running fashion. The rectus muscles were reapproximated using 3-0 Vicryl suture in interrupted fashion. The fascia was reapproximated using 0 Vicryl suture in running fashion. The subcutaneous tissue was reapproximated using 3-0 plain in an interrupted subcutaneous stitch and the skin reapproximated using 4-0 Monocryl in a running subcuticular. Dermabond was applied to the incision and a sterile dressing with adhesive white tape. The patient tolerated the procedure well and was taken to recovery area in stable condition. Lap and sponge count was correct at the end of the procedure. Instrument count was correct as well. Job ID: [id number] DocumentID: [id number] Dictated Date: 01/10/2017 11:44:16 Compliance Examiner Date: 01/10/2017 18:21:00 Dictated By: BOOKER ROCHA DO
[2017-01-11] MEDS: HYDROcodone/APAP 5 MG/325 MG (LORTAB) TAB PO PRN ×2 (02:42→11:04)
[2017-01-11] MEDS: CATHETER FLUSH 10 ML SYR IV SCH ×2 (05:17→23:04)
[2017-01-11] MEDS: KETOROLAC 30 MG/ML VIAL IVP SCH (05:17)
[2017-01-11 05:33] VITALS: BP 132/68
--- NOTE | 2017-01-11 06:52 | Progress Note-Standard ---
Standard Progress Note Progress Notes/Assess & Plan Date Seen by Provider: Jan 11, 2017 Time Seen by Provider: 06:51 Progress/Assessment & Plan this patient is without complaint. She is ambulating, voiding, tolerating by mouth well, has good pain control. Patient denies chest pain, denies shortness of breath, denies nausea vomiting, denies headache. Vital Signs Date Time Temp Pulse Resp B/P (MAP) Pulse Ox O2 Delivery O2 Flow Rate FiO2 01/11/17 05:33 98.7 109 18 132/68 99 Room Air 01/10/17 23:30 98.1 114 18 132/79 99 Room Air 01/10/17 20:10 96.8 88 18 129/79 98 Room Air 01/10/17 15:54 Room Air 01/10/17 15:28 98.6 89 18 111/67 98 01/10/17 10:15 90 129/79 100 Non Rebreather 15.00 01/10/17 10:00 77 109/59 100 Non Rebreather 15.00 01/10/17 09:40 95 14 123/70 100 Non Rebreather 15.00 01/10/17 09:30 101 126/71 100 Non Rebreather 15.00 01/10/17 09:15 101 126/71 100 Non Rebreather 15.00 01/10/17 09:00 90 116/61 100 Room Air 01/10/17 08:45 80 124/76 99 Room Air 01/10/17 08:30 81 124/75 100 Room Air 01/10/17 08:15 88 18 125/78 100 Room Air 01/10/17 08:00 88 18 125/78 100 Room Air 01/10/17 07:55 82 129/84 96 Room Air 01/10/17 07:50 100 113/63 100 Room Air 01/10/17 07:45 100 123/71 Room Air 01/10/17 07:40 91 123/68 99 Room Air 01/10/17 07:35 94 118/68 100 Room Air 01/10/17 07:30 85 117/63 Room Air 01/10/17 07:26 85 116/61 97 Room Air 01/10/17 07:23 88 116/65 01/10/17 07:20 90 115/67 97 Room Air 01/10/17 07:16 95 123/72 95 Room Air 01/10/17 07:13 91 116/67 Room Air 01/10/17 07:10 88 16 125/66 97 Room Air 01/10/17 07:00 96 20 133/76 100 Room Air 01/10/17 06:57 89 20 134/73 100 Room Air vital signs are stable. Patient afebrile. The abdomen is benign. The surgical incision is clean dry and intact. Extremities show no clubbing or cyanosis. There is no Homans sign. There is some pretibial pitting edema that is normal. assessment and plan operative day number 1 status post primary delivery doing well. Plan for routine convalescence care today and consider discharge home tomorrow VESTA CALERO MD Jan 11, 2017 6:52 am
[2017-01-11 07:25] LABS: BASOPHILS % (AUTO) 0 % (0-10); EOSINOPHILS # (AUTO) 0.1 10^3/uL (0.0-0.3); EOSINOPHILS % (AUTO) 0 % (0-10); LYMPHOCYTES # (AUTO) 2.4 X 10^3 (1.0-4.0); LYMPHOCYTES % (AUTO) 16 % (12-44); MEAN CORPUSCULAR HEMOGLOBIN 29 PG (25-34); MEAN CORPUSCULAR HGB CONC 32 G/DL (32-36); MEAN CORPUSCULAR VOLUME 90 FL (80-99); MEAN PLATELET VOLUME 10.1 FL (7.4-10.4); MONOCYTES # (AUTO) 1.3 X 10^3 (0.0-1.0); MONOCYTES % (AUTO) 9 % (0-12); NEUTROPHILS # (AUTO) 10.9 X 10^3 (1.8-7.8); NEUTROPHILS % (AUTO) 75 % (42-75); PLATELET COUNT 164 10^3/uL (130-400); RED BLOOD COUNT 3.24 10^6/uL (4.35-5.85); RED CELL DISTRIBUTION WIDTH 16.5 % (10.0-14.5); WHITE BLOOD COUNT 14.6 10^3/uL (4.3-11.0)
[2017-01-11 08:57] VITALS: BP 112/73
[2017-01-11] MEDS: DOCUSATE SODIUM 100 MG (COLACE) CAP PO SCH ×2 (08:58→21:22)
[2017-01-11] MEDS: IBUPROFEN 600 MG (MOTRIN) TAB PO SCH ×3 (11:04→23:59)
[2017-01-11 14:45] VITALS: BP 117/69
--- NOTE | 2017-01-11 14:53 | Anesthesia-Regional Post-Op ---
Regional Patient Condition Mental Status: Alert, Oriented x3 Circulation: Same as Pre-Op Headache: Absent Sensation: Full Recovery Motor Block: Absent Post Op Complications Complications None Follow Up Care/Instructions Patient Instructions None needed. Anesthesia/Patient Condition Patient is doing well, no complaints, stable vital signs, no apparent adverse anesthesia problems. No complications reported per nursing. D/C home per [facility] Criteria: No ANCA KNUTSON CRNA Jan 11, 2017 14:53
[2017-01-11 17:55] VITALS: BP 111/74
[2017-01-11 20:10] VITALS: BP 118/77
[2017-01-12] VITALS: BP 117/80
[2017-01-12] MEDS: HYDROcodone/APAP 5 MG/325 MG (LORTAB) TAB PO PRN (00:02)
[2017-01-12 02:55] VITALS: BP 114/65
[2017-01-12] MEDS: IBUPROFEN 600 MG (MOTRIN) TAB PO SCH ×2 (05:29→13:30)
--- NOTE | 2017-01-12 08:20 | Progress Note-Standard ---
Standard Progress Note Progress Notes/Assess & Plan Date Seen by Provider: Jan 12, 2017 Time Seen by Provider: 08:19 Progress/Assessment & Plan this patient is without complaint. She is ambulating, voiding, tolerating by mouth well, has good pain control. Patient denies chest pain, denies shortness of breath, denies nausea vomiting, denies headache. Vital Signs Date Time Temp Pulse Resp B/P (MAP) Pulse Ox O2 Delivery O2 Flow Rate FiO2 01/11/17 05:33 98.7 109 18 132/68 99 Room Air 01/10/17 23:30 98.1 114 18 132/79 99 Room Air 01/10/17 20:10 96.8 88 18 129/79 98 Room Air 01/10/17 15:54 Room Air 01/10/17 15:28 98.6 89 18 111/67 98 01/10/17 10:15 90 129/79 100 Non Rebreather 15.00 01/10/17 10:00 77 109/59 100 Non Rebreather 15.00 01/10/17 09:40 95 14 123/70 100 Non Rebreather 15.00 01/10/17 09:30 101 126/71 100 Non Rebreather 15.00 01/10/17 09:15 101 126/71 100 Non Rebreather 15.00 01/10/17 09:00 90 116/61 100 Room Air 01/10/17 08:45 80 124/76 99 Room Air 01/10/17 08:30 81 124/75 100 Room Air 01/10/17 08:15 88 18 125/78 100 Room Air 01/10/17 08:00 88 18 125/78 100 Room Air 01/10/17 07:55 82 129/84 96 Room Air 01/10/17 07:50 100 113/63 100 Room Air 01/10/17 07:45 100 123/71 Room Air 01/10/17 07:40 91 123/68 99 Room Air 01/10/17 07:35 94 118/68 100 Room Air 01/10/17 07:30 85 117/63 Room Air 01/10/17 07:26 85 116/61 97 Room Air 01/10/17 07:23 88 116/65 01/10/17 07:20 90 115/67 97 Room Air 01/10/17 07:16 95 123/72 95 Room Air 01/10/17 07:13 91 116/67 Room Air 01/10/17 07:10 88 16 125/66 97 Room Air 01/10/17 07:00 96 20 133/76 100 Room Air 01/10/17 06:57 89 20 134/73 100 Room Air vital signs are stable. Patient afebrile. The abdomen is benign. The surgical incision is clean dry and intact. Extremities show no clubbing or cyanosis. There is no Homans sign. There is some pretibial pitting edema that is normal. assessment and plan operative day number 1 status post primary delivery doing well. Plan for routine convalescence care today and consider discharge home tomorrow January 12, 2017 Patient is without complaint. She is ambulating, voiding, tolerating by mouth well, has good pain control, patient is requesting discharge home. Vital Signs Date Time Temp Pulse Resp B/P (MAP) Pulse Ox O2 Delivery O2 Flow Rate FiO2 01/12/17 05:29 102 99 01/12/17 02:55 98.7 113 18 114/65 99 01/12/17 00:00 99.8 118 18 117/80 99 01/11/17 20:10 98.1 99 18 118/77 98 01/11/17 17:55 98.7 109 18 111/74 Room Air 01/11/17 14:45 98.0 99 18 117/69 98 Room Air 01/11/17 08:57 96.7 90 20 112/73 98 Room Air the abdomen is benign. Surgical incision is clean dry and intact. Extremities show clubbing cyanosis. There is no Homans sign. Assessment and plan postoperative day number 2 status post delivery. Patient is cleared for discharge home Final Diagnosis term operative delivery VESTA CALERO MD Jan 12, 2017 8:20 am
[2017-01-12 10:15] VITALS: BP 112/76
[2017-01-12 13:30] VITALS: BP 113/63
== END 2017-01-12 15:35 | disposition home or self-care (01) | DRG 766 ==
LOC: LDRP 22:27 → WSo 22:27 → LDRP 01-10 00:33
PROVIDERS: ADMIT Family Medicine; ATTEND Family Medicine
PROC: 3E0P05Z Introduction of Adhesion Barrier into Female Reproductive, Open Approach (ICD-10-PCS; 2017-01-10)
PROC: 10D00Z1 Extraction of Products of Conception, Low, Open Approach (ICD-10-PCS; principal; 2017-01-10 10:22)
DX: O26.893 Other specified pregnancy related conditions, third trimester (principal); O99.820 Streptococcus B carrier state complicating pregnancy; O76 Abnormality in fetal heart rate and rhythm complicating labor and delivery; Z3A.38 38 weeks gestation of pregnancy; Z37.0 Single live birth; Z23 Encounter for immunization
CPT/HCPCS: 36415; 83033; 85007; 85025; 85027; 86850; 86900; 86901; 88307; 90707; 94664; 99212

== ENCOUNTER 2017-02-16 13:57 | Emergency (ER) | payer MEDICAID ==
[~2017-02-16] VITALS: Ht 152.4 cm; Wt 81.6 kg
[~2017-02-16 13:57] MED LIST changes: +DOCU100C37 PO; +HYDR-3812 PO; +IBUP-1773 PO; -NAPR500T3 PO; +NAPR500T4 PO
--- OUTSIDE RECORDS SUMMARY | 2017-02-16 14:03 | XMS REPORT ---
Author Author JAMESON MORAN [facility] Address [address] [place] [address] Care Team Providers Care Hand Icer Name Role Phone JAMESON MORAN Unavailable PROBLEMS Type Condition ICD9-CM Code ZIQ02-SI Code Onset Dates Condition Status SNOMED Code Problem ALBIN (amniotic fluid index) borderline low O28.8 Active 75226663 Problem GBS bacteriuria R82.71 Active 99592546 Problem Rh negative state in antepartum period, second trimester O09.892 Active 788130567 Problem Gastroesophageal reflux disease without esophagitis K21.9 Active 396896995 Problem Other specified diseases and conditions complicating , childbirth and the puerperium O99.89 Active 193780032 ALLERGIES No Known Allergies SOCIAL HISTORY Never Assessed PLAN OF CARE Activity Details Follow Up bella Reason:keshia VITAL SIGNS Blood pressure systolic 105 mmHg 2016-07-02 Blood pressure diastolic 70 mmHg 2016-07-02 MEDICATIONS Medication Instructions Dosage Frequency Start Date End Date Duration Status 28-0.8 MG Orally daily 1 24h 30 May, 2016 Active RESULTS No Results PROCEDURES Procedure Date Ordered Result Body Site INTRAORL-PERIAPICAL 1 FILM [id number] July 02, 2016 INTRAORL-PERIAPICAL EA ADD FILM July 02, 2016 TOPICAL FLUORIDE VARNISH July 02, 2016 PROPHYLAXIS - ADULT July 02, 2016 INTRAORL-PERIAPICAL EA ADD FILM July 02, 2016 INTRAORL-PERIAPICAL EA ADD FILM July 02, 2016 UNSPEC DIAGNOSTIC PROCEDURE REPORT June 14, 2016 PANORAMIC FILM SEE ALSO CODE [id number] July 02, 2016 IMMUNIZATIONS No Known Immunizations MEDICAL (GENERAL) HISTORY Type Description Date Medical History Pt. 's due date is 2016
--- OUTSIDE RECORDS SUMMARY | 2017-02-16 14:03 | XMS REPORT ---
Author Author ANNA BURRELL Organization [facility] Address [address] [place] [address] Care Team Providers Care Green Pipefitter Name Role Phone SAILAJA BURRELLHANY Unavailable PROBLEMS Type Condition ICD9-CM Code YTT15-[id number] Code Onset Dates Condition Status SNOMED Code Problem ALBIN (amniotic fluid index) borderline low O28.8 Active 64883108 Problem GBS bacteriuria R82.71 Active 10907582 Problem Rh negative state in antepartum period, second trimester O09.892 Active 921261428 Problem Gastroesophageal reflux disease without esophagitis K21.9 Active 466452786 Problem Other specified diseases and conditions complicating , childbirth and the puerperium O99.89 Active 199822709 ALLERGIES No Known Allergies SOCIAL HISTORY Never Assessed PLAN OF CARE Activity Details Follow Up 4 Weeks, 4 Weeks Reason: VITAL SIGNS Height 60 in 2016-08-09 Weight 184 lbs 2016-08-09 Temperature 98.3 degrees Fahrenheit 2016-08-09 Heart Rate 100 bpm 2016-08-09 Respiratory Rate 20 2016-08-09 BMI 35.935 kg/m2 2016-08-09 Blood pressure systolic 120 mmHg 2016-08-09 Blood pressure diastolic 88 mmHg 2016-08-09 MEDICATIONS Medication Instructions Dosage Frequency Start Date End Date Duration Status 28-0.8 MG Orally daily 1 24h 30 May, 2016 Active RESULTS Name Result Date Reference Range UA OB DIP (IN HOUSE) 2016-08-09 Glucose negative Protein trace PROCEDURES Procedure Date Ordered Result Body Site URINE-NO MICRO August 09, 2016 IMMUNIZATIONS No Known Immunizations MEDICAL (GENERAL) HISTORY Type Description Date Medical History Pt. 's due date is 2016
--- OUTSIDE RECORDS SUMMARY | 2017-02-16 14:03 | XMS REPORT ---
Author Author DEXTER REYNOLDS [facility] Address [address] [place] [address] Care Team Providers Care Marine Insulator Name Role Phone DEXTER REYNOLDS Unavailable PROBLEMS Type Condition ICD9-CM Code XSD72-DE Code Onset Dates Condition Status SNOMED Code Problem GBS bacteriuria R82.71 Active 23351501 Problem Gastroesophageal reflux disease without esophagitis K21.9 Active 955309292 Problem Other specified diseases and conditions complicating , childbirth and the puerperium O99.89 Active 099435601 Problem Rh negative state in antepartum period, second trimester O09.892 Active 836007554 ALLERGIES No Information SOCIAL HISTORY Never Assessed PLAN OF CARE VITAL SIGNS MEDICATIONS Unknown Medications RESULTS Name Result Date Reference Range TEST, URINE (IN HOUSE) 2016-06-11 RESULTS Positive Lot # [id number] Control + Exp date 09/2017 PROCEDURES Procedure Date Ordered Result Body Site URINE TEST June 11, 2016 IMMUNIZATIONS No Known Immunizations MEDICAL (GENERAL) HISTORY Type Description Date Medical History Pt. 's due date is 2016
[2017-02-16] MEDS ORDERED: ASPIRIN 81 MG CHEW (CHILDREN'S ASA) PO STA (14:29)
[2017-02-16 14:50] LABS: BASOPHILS % (AUTO) 0 % (0-10); EOSINOPHILS # (AUTO) 0.5 10^3/uL (0.0-0.3); EOSINOPHILS % (AUTO) 7 % (0-10); LYMPHOCYTES # (AUTO) 2.8 X 10^3 (1.0-4.0); LYMPHOCYTES % (AUTO) 39 % (12-44); MEAN CORPUSCULAR HEMOGLOBIN 28 PG (25-34); MEAN CORPUSCULAR HGB CONC 33 G/DL (32-36); MEAN CORPUSCULAR VOLUME 85 FL (80-99); MEAN PLATELET VOLUME 9.8 FL (7.4-10.4); MONOCYTES # (AUTO) 0.6 X 10^3 (0.0-1.0); MONOCYTES % (AUTO) 8 % (0-12); NEUTROPHILS # (AUTO) 3.3 X 10^3 (1.8-7.8); NEUTROPHILS % (AUTO) 46 % (42-75); PLATELET COUNT 193 10^3/uL (130-400); RED BLOOD COUNT 4.55 10^6/uL (4.35-5.85); RED CELL DISTRIBUTION WIDTH 15.2 % (10.0-14.5); WHITE BLOOD COUNT 7.2 10^3/uL (4.3-11.0)
[2017-02-16] MEDS ORDERED: LIDOCAINE 2% VISCOUS 15 ML UDC PO ONE (15:00)
[2017-02-16] MEDS ORDERED: ANTACID SUSP 30 ML UDC (MYLANTA) PO ONE (15:00)
[2017-02-16 15:07] LABS: ALANINE AMINOTRANSFERASE 31 U/L (0-55); ALBUMIN 3.9 GM/DL (3.2-4.5); ANION GAP 10 MMOL/L (5-14); ASPARTATE AMINO TRANSFERASE 32 U/L (5-34); BILIRUBIN,TOTAL 0.5 MG/DL (0.1-1.0); BLOOD UREA NITROGEN 10 MG/DL (7-18); BUN/CREATININE RATIO 12; CALCIUM 9.1 MG/DL (8.5-10.1); CARBON DIOXIDE 23 MMOL/L (21-32); CHLORIDE 109 MMOL/L (98-107); CREATININE SERUM 0.85 MG/DL (0.60-1.30); GFR ESTIMATED > 60; GLUCOSE 89 MG/DL (70-105); POTASSIUM 3.9 MMOL/L (3.6-5.0); SODIUM 142 MMOL/L (135-145); TOTAL PROTEIN 7.4 GM/DL (6.4-8.2); hs C REACTIVE PROTEIN 0.33 MG/DL (0.00-0.50)
--- NOTE | 2017-02-16 15:07 | ED Chest Pain ---
General Chief Complaint: Chest Pain Stated Complaint: CP Nursing Triage Note: pt reports medial cp starting at 1400 when taking her mothers dog outside to the bathroom. pt reports pain felt like a crushing pain. pt reports she became nauseated and vomited once. pt reports upon arrival pain has reduced. Nursing Sepsis Screen: No Definite Risk Source: patient Exam Limitations: no limitations History of Present Illness Time seen by provider: 14:33 Initial Comments Here with report of acute onset of central chest discomfort that she states is sharp and painful and persistent. Onset at about 2 p.m. after taking the dog out. She became nauseated and vomited once. This did not reduce the pain but it has reduced somewhat since arriving here. Patient states that she occasionally gets burning pain to her chest when she is bending over the bathtub to give her baby a bath. The baby is just over a month old now and she had the baby via . Denies other trauma or injury or other long trips. Denies leg pain or swelling. No family history of blood clots. Has had history of some reflux problems in the past. 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: No NTG SL PIPE FITTER APPRENTICE: No Associated Symptoms: No abdominal pain, No back pain, No diaphoresis, No fatigue, No fever/chills, heartburn, nausea/vomiting, No shortness of breath, No weakness Allergies and Home Medications Allergies Coded Allergies: No Known Drug Allergies (Unverified , 01/31/09) Home Medications No Active Prescriptions or Reported Meds Review of Systems Constitutional: see HPI, No chills, No fever EENTM: No Symptoms Reported Respiratory: No Symptoms Reported Cardiovascular: See HPI, Chest Pain, Denies Edema Gastrointestinal: See HPI, Denies Diarrhea Genitourinary: No Symptoms Reported Musculoskeletal: No back pain, No muscle pain, No neck pain Skin: no symptoms reported, No rash Psychiatric/Neurological: No Symptoms Reported All Other Systems Reviewed Negative Unless Noted: Yes Past Jzhylgx-Biehei-Xbheic Hx Patient Social History Alcohol Use: Denies Use Recreational Drug Use: No Smoking Status: Never a Smoker Recent Foreign Travel: No Contact w/Someone Who Travel: No Recent Infectious Disease Expo: No Recent Hopitalizations: No Physical Abuse: No Sexual Abuse: No Mistreated: No Fear: No Immunizations Up To Date Date of Influenza Vaccine: Dec 05, 2016 Seasonal Allergies Seasonal Allergies: No Surgeries History of Surgeries: Yes Surgeries: Section Respiratory History of Respiratory Disorde: No Cardiovascular History of Cardiac Disorders: No Neurological History of Neurological Disord: No Reproductive System Hx Reproductive Disorders: No Sexually Transmitted Disease: No HIV/AIDS: No Female Reproductive Disorders: Denies Genitourinary History of Genitourinary Disor: No Gastrointestinal History of Gastrointestinal Di: No Musculoskeletal History of Musculoskeletal Dis: No Endocrine History of Endocrine Disorders: No HEENT History of HEENT Disorders: No Cancer History of Cancer: No Psychosocial History of Psychiatric Problem: No Suicide Risk Score: 0 Integumentary History of Skin or Integumenta: No Blood Transfusions History of Blood Disorders: No Reviewed Nursing Assessment Reviewed/Agree w Nursing PMH: Yes Family Medical History Significant Family History: No Pertinent Family Hx Physical Exam Vital Signs Vital Sign - Last 12Hours 02/16/17 14:24 Temp 98.0 Pulse 92 Resp 16 B/P (MAP) 106/69 (81) Pulse Ox 98 O2 Delivery Room Air Capillary Refill : Less Than 3 Seconds General Appearance: No Apparent Distress, WD/WN HEENT: PERRL/EOMI, Pharynx Normal Neck: Non Tender, Supple Respiratory: Lungs Clear, Normal Breath Sounds Cardiovascular: Regular Rate, Rhythm, No Murmur Gastrointestinal: Normal Bowel Sounds, Non Tender, Soft Extremity: Normal Inspection, Normal Range of Motion, Non Tender, No Calf Tenderness Neurologic/Psychiatric: Alert, Oriented x3 Skin: Normal Color, Warm/Dry Progress/Results/Core Measures Results/Orders Lab Results Laboratory Tests Test 02/16/17 14:44 Range/Units White Blood Count 7.2 4.3-11.0 10^3/uL Red Blood Count 4.55 4.35-5.85 10^6/uL Hemoglobin 12.9 11.5-16.0 G/DL Hematocrit 39 35-52 % Mean Corpuscular Volume 85 80-99 FL Mean Corpuscular Hemoglobin 28 25-34 PG Mean Corpuscular Hemoglobin Concent 33 32-36 G/DL Red Cell Distribution Width 15.2 H 10.0-14.5 % Platelet Count 193 130-400 10^3/uL Mean Platelet Volume 9.8 7.4-10.4 FL Neutrophils (%) (Auto) 46 42-75 % Lymphocytes (%) (Auto) 39 12-44 % Monocytes (%) (Auto) 8 0-12 % Eosinophils (%) (Auto) 7 0-10 % Basophils (%) (Auto) 0 0-10 % Neutrophils # (Auto) 3.3 1.8-7.8 X 10^3 Lymphocytes # (Auto) 2.8 1.0-4.0 X 10^3 Monocytes # (Auto) 0.6 0.0-1.0 X 10^3 Eosinophils # (Auto) 0.5 H 0.0-0.3 10^3/uL Basophils # (Auto) 0.0 0.0-0.1 10^3/uL D-Dimer 1.06 H 0.00-0.49 UG/ML Sodium Level 142 135-145 MMOL/L Potassium Level 3.9 3.6-5.0 MMOL/L Chloride Level 109 H 98-107 MMOL/L Carbon Dioxide Level 23 21-32 MMOL/L Anion Gap 10 5-14 MMOL/L Blood Urea Nitrogen 10 7-18 MG/DL Creatinine 0.85 0.60-1.30 MG/DL Estimat Glomerular Filtration Rate > 60 BUN/Creatinine Ratio 12 Glucose Level 89 70-105 MG/DL Calcium Level 9.1 8.5-10.1 MG/DL Total Bilirubin 0.5 0.1-1.0 MG/DL Aspartate Amino Transf (AST/SGOT) 32 5-34 U/L Alanine Aminotransferase (ALT/SGPT) 31 0-55 U/L Alkaline Phosphatase 91 40-136 U/L Troponin I < 0.30 <0.30 NG/ML C-Reactive Protein High Sensitivity 0.33 0.00-0.50 MG/DL Total Protein 7.4 6.4-8.2 GM/DL Albumin 3.9 3.2-4.5 GM/DL My Orders Orders - FRANSISCO HUITRON MD Cbc With Automated Diff (02/16/17 14:29) Comprehensive Metabolic Panel (02/16/17 14:29) Hs C Reactive Protein (02/16/17 14:29) Fibrin Degradation Products (02/16/17 14:29) Troponin I (02/16/17 14:29) Chest Pa/Lat (2 View) (02/16/17 14:29) Aspirin Chewable Tablet (Baby Aspirin Ch (02/16/17 14:29) Saline Lock/Iv-Start (02/16/17 14:29) Lidocaine 2% Viscous 15 Ml (Xylocaine Vi (02/16/17 15:00) Antacid Suspension (Mylanta Suspension (02/16/17 15:00) Ct Angio Chest W (02/16/17 15:21) Ns Iv 1000 Ml (Sodium Chloride 0.9%) (02/16/17 15:21) Urine Bedside (02/16/17 15:21) Iohexol Injection (Omnipaque 350 Mg/Ml 1 (02/16/17 16:15) Ns (Ivpb) (Sodium Chloride 0.9% Ivpb Bag (02/16/17 16:15) Famotidine Injection (Pepcid Injection) (02/16/17 16:43) Ketorolac Injection (Toradol Injection) (02/16/17 16:43) Medications Given in ED Current Medications Medications Dose Ordered Sig/Hernandez Route Start Time Stop Time Status Last Admin Dose Admin Al Hydrox/Mg Hydrox/Simethicone 30 ml ONCE ONCE PO 02/16/17 15:00 02/16/17 15:01 DC 02/16/17 15:12 30 ML Iohexol 100 ml ONCE ONCE IV 02/16/17 16:15 02/16/17 16:18 DC 02/16/17 16:16 100 ML Lidocaine HCl 15 ml ONCE ONCE PO 02/16/17 15:00 02/16/17 15:01 DC 02/16/17 15:12 15 ML Sodium Chloride 100 ml ONCE ONCE IV 02/16/17 16:15 02/16/17 16:18 DC 02/16/17 16:16 80 ML Sodium Chloride 1,000 ml @ 0 mls/hr Q0M ONCE IV 02/16/17 15:21 02/16/17 15:23 DC 02/16/17 15:27 0 MLS/HR Vital Signs/I&O Vital Sign - Last 12Hours 02/16/17 02/16/17 14:24 14:24 Temp 98.0 Pulse 92 Resp 16 B/P (MAP) 106/69 (81) Pulse Ox 98 O2 Delivery Room Air Blood Pressure Mean: 81 Progress Note : Progress Note Seen and evaluated. IV, labs, chest x-ray and EKG ordered. ASA 324 mg by mouth given. Monitor patient. D-dimer is positive. CT angiogram chest ordered. 1635: Patient is having some pain again. Pepcid 20 mg IV and Toradol [address] angiogram is negative for large pulmonary embolism. No significant other findings otherwise. Discharged home with return precautions. Patient verbalize understanding instructions and agreement with plan. Diagnostic Imaging Diagonstic Imaging: CT Plain Films/CT/US/NM/MRI: chest Comments NAME: PAMELA LEE [facility] REC#: [id number] PT STATUS: REG ER : 1995 PHYSICIAN: FRANSISCO HUITRON MD ADMIT DATE: 02/16/17/ER Draft Date of Exam:02/16/17 CT ANGIO CHEST W PROCEDURE: CT angiography of the chest with contrast. TECHNIQUE: Multiple contiguous axial images were obtained through the chest after uneventful bolus administration of intravenous contrast. Reconstructed CTA MIP acquisitions were also performed. INDICATION: Chest pain. COMPARISON: Radiographs of the chest from the same day. FINDINGS: No significant adenopathy within chest. No aneurysmal dilatation of the thoracic aorta. No pericardial effusion. No pleural effusion. Evaluation for pulmonary emboli is slightly limited secondary to contrast bolus timing and patient body habitus. No central pulmonary embolus. Evaluation for smaller pulmonary emboli is limited secondary to contrast bolus timing. No pneumothorax. 2 mm right lower lobe subpleural pulmonary nodule. The lungs are otherwise clear. The partially visualized upper abdomen is unremarkable. No acute osseous abnormality. IMPRESSION: 1. No acute abnormality identified. In particular, no significant central pulmonary embolus identified. However, evaluation for smaller distal emboli is limited secondary to contrast bolus timing. 2. There is a 2 mm subpleural pulmonary nodule within the right lung base. Given patient's age and appearance, this is likely clinically insignificant. 3. Additional findings as above. Dictated on workstation # [id number] Dict: 02/16/17 1624 Trans: 02/16/17 1644 PJ [id number] Interpreted by: FRANCISCO FAIRBANKS MD Electronically signed by: Departure Impression Impression: Primary Impression: Chest pain Qualified Codes: R07.9 - Chest pain, unspecified Disposition: HOME, SELF-CARE Condition: Stable Departure-Patient Inst. Decision time for Depature: 16:50 Referrals: ANNA BURRELL MD (PCP/Family) Primary Care Physician Patient Instructions: Chest Pain (DC), Acid Reflux (Gastroesophageal Reflux Disease), Adult (DC) Add. Discharge Instructions: All discharge instructions reviewed with patient and/or family. Voiced understanding. Take medications as directed. Follow-up with your doctor this week for recheck and further evaluation. You may need referral to a surgeon for upper endoscopy (scope) to closer evaluate the stomach as indicated by your doctor. You may take Pepcid or the generic famotidine, 20 mg once or twice daily for the next few days and then daily thereafter as needed to reduce stomach acid. You may also take josn-lke-hxuatia medicine such as Tums per package directions. You may take Tylenol or the generic acetaminophen 1000 mg every 6 hours as needed for pain. Return for worsening, fever, vomiting, weakness, breathing problems or other concerns as needed. Scripts No Active Prescriptions or Reported Meds FRANSISCO HUITRON MD Feb 16, 2017 15:07
[2017-02-16 15:13] LABS: TROPONIN I < 0.30 NG/ML (<0.30)
[2017-02-16] MEDS ORDERED: NS IV 1000 ML 1,000 ML IV ONE (15:21)
--- NOTE | 2017-02-16 15:54 | Diagnostic Imaging Report ---
INDICATION: Chest pain. COMPARISON: None available. TECHNIQUE: Frontal and lateral radiographs of the chest dated 02/16/2017. FINDINGS: The cardiac silhouette is within normal limits. No significant pulmonary vascular congestion. The lungs are clear without focal pulmonary opacity. No pleural effusion. No acute osseous abnormality. IMPRESSION: No acute cardiopulmonary abnormality. Dictated by: Dictated on workstation # [id number]
[2017-02-16] MEDS ORDERED: IOHEXOL 350 MG/ML 100 ML (OMNIPAQUE 350) VIAL IV ONE (16:15)
[2017-02-16] MEDS ORDERED: NS 100 ML (IVPB) BAG IV ONE (16:15)
[2017-02-16] MEDS ORDERED: KETOROLAC 30 MG/ML VIAL IVP STA (16:43)
[2017-02-16] MEDS ORDERED: FAMOTIDINE 20MG/2ML IV (PEPCID) IV STA (16:43)
--- NOTE | 2017-02-16 16:45 | Diagnostic Imaging Report ---
PROCEDURE: CT angiography of the chest with contrast. TECHNIQUE: Multiple contiguous axial images were obtained through the chest after uneventful bolus administration of intravenous contrast. Reconstructed CTA MIP acquisitions were also performed. INDICATION: Chest pain. COMPARISON: Radiographs of the chest from the same day. FINDINGS: No significant adenopathy within chest. No aneurysmal dilatation of the thoracic aorta. No pericardial effusion. No pleural effusion. Evaluation for pulmonary emboli is slightly limited secondary to contrast bolus timing and patient body habitus. No central pulmonary embolus. Evaluation for smaller pulmonary emboli is limited secondary to contrast bolus timing. No pneumothorax. 2 mm right lower lobe subpleural pulmonary nodule. The lungs are otherwise clear. The partially visualized upper abdomen is unremarkable. No acute osseous abnormality. IMPRESSION: 1. No acute abnormality identified. In particular, no significant central pulmonary embolus identified. However, evaluation for smaller distal emboli is limited secondary to contrast bolus timing. 2. There is a 2 mm subpleural pulmonary nodule within the right lung base. Given patient's age and appearance, this is likely clinically insignificant. 3. Additional findings as above. Dictated by: Dictated on workstation # [id number]
[2017-02-16 16:59] VITALS: BP 119/74
[2017-02-19] MEDS ORDERED: HYDR-3812 PO (13:24)
== END 2017-02-16 16:59 | disposition home or self-care (01) ==
LOC: EDUNIT# 13:57 → ER 13:59
DX: R07.89 Other chest pain (principal); K21.9 Gastro-esophageal reflux disease without esophagitis; Z87.59 Personal history of other complications of pregnancy, childbirth and the puerperium
CPT/HCPCS: 36415; 71020; 71275; 80053; 84484; 84703; 85025; 85379; 86141; 99285

== ENCOUNTER 2017-02-18 21:11 | Day surgery (SDC) | payer MEDICAID ==
[~2017-02-18] VITALS: Ht 152.4 cm; Wt 81.6 kg
--- OUTSIDE RECORDS SUMMARY | 2017-02-18 21:17 | XMS REPORT ---
Author Author ANNA BURRELL [facility] Address [address] [place] [address] Care Team Providers Care Bingo Caller Name Role Phone ANNA BURRELL Unavailable PROBLEMS Type Condition ICD9-CM Code GLS79-FZ Code Onset Dates Condition Status SNOMED Code Problem GBS bacteriuria R82.71 Active 77126243 Problem Gastroesophageal reflux disease without esophagitis K21.9 Active 197029289 Problem Other specified diseases and conditions complicating , childbirth and the puerperium O99.89 Active 987062831 Problem Rh negative state in antepartum period, second trimester O09.892 Active 991322651 ALLERGIES No Known Allergies SOCIAL HISTORY Never Assessed PLAN OF CARE VITAL SIGNS MEDICATIONS Unknown Medications RESULTS No Results PROCEDURES No Known procedures IMMUNIZATIONS No Known Immunizations MEDICAL (GENERAL) HISTORY Type Description Date Medical History Pt. 's due date is 2016
[2017-02-18] MEDS ORDERED: NS IV 1000 ML 1,000 ML IV ONE (22:56)
[2017-02-18] MEDS ORDERED: ONDANSETRON 4 MG/2 ML (SDV) Z0FRAN IVP ONE (23:00)
[2017-02-18 23:19] LABS: BASOPHILS % (AUTO) 1 % (0-10); EOSINOPHILS # (AUTO) 0.6 10^3/uL (0.0-0.3); EOSINOPHILS % (AUTO) 8 % (0-10); LYMPHOCYTES # (AUTO) 2.2 X 10^3 (1.0-4.0); LYMPHOCYTES % (AUTO) 28 % (12-44); MEAN CORPUSCULAR HEMOGLOBIN 29 PG (25-34); MEAN CORPUSCULAR HGB CONC 33 G/DL (32-36); MEAN CORPUSCULAR VOLUME 86 FL (80-99); MEAN PLATELET VOLUME 10.1 FL (7.4-10.4); MONOCYTES # (AUTO) 0.7 X 10^3 (0.0-1.0); MONOCYTES % (AUTO) 9 % (0-12); NEUTROPHILS # (AUTO) 4.3 X 10^3 (1.8-7.8); NEUTROPHILS % (AUTO) 54 % (42-75); PLATELET COUNT 190 10^3/uL (130-400); RED BLOOD COUNT 4.54 10^6/uL (4.35-5.85); RED CELL DISTRIBUTION WIDTH 15.6 % (10.0-14.5); WHITE BLOOD COUNT 7.9 10^3/uL (4.3-11.0)
[2017-02-18 23:30] LABS: BILIRUBIN,URINE 2+ (NEGATIVE); KETONES,URINE NEGATIVE (NEGATIVE); LEUKOCYTE ESTERASE ,URINE 3+ (NEGATIVE); NITRITE,URINE NEGATIVE (NEGATIVE); PH,URINE 6 (5-9); PROTEIN,URINE 2+ (NEGATIVE); UROBILINOGEN,URINE 4 MG/DL (NORMAL); WBC,URINE >100 /HPF
[2017-02-18 23:42] LABS: ALANINE AMINOTRANSFERASE 322 U/L (0-55); ANION GAP 12 MMOL/L (5-14); ASPARTATE AMINO TRANSFERASE 171 U/L (5-34); BILIRUBIN,TOTAL 2.4 MG/DL (0.1-1.0); BLOOD UREA NITROGEN 8 MG/DL (7-18); BUN/CREATININE RATIO 9; CALCIUM 9.8 MG/DL (8.5-10.1); CARBON DIOXIDE 24 MMOL/L (21-32); CHLORIDE 107 MMOL/L (98-107); CREATININE SERUM 0.85 MG/DL (0.60-1.30); GFR ESTIMATED > 60; GLUCOSE 83 MG/DL (70-105); LIPASE 28 U/L (8-78); POTASSIUM 3.6 MMOL/L (3.6-5.0); SODIUM 143 MMOL/L (135-145); TOTAL PROTEIN 7.7 GM/DL (6.4-8.2); hs C REACTIVE PROTEIN 1.54 MG/DL (0.00-0.50)
[2017-02-18] MEDS ORDERED: cefTRIAXone INJECTION 1,000 MG in NS (IVPB) 50 ML IV ONE (23:45)
[2017-02-19] MEDS ORDERED: fentaNYL INJECTION 100 MCG/2 ML AMP IVP ONE
--- NOTE | 2017-02-19 00:30 | ED Abdominal Pain ---
General Chief Complaint: Abdominal/GI Problems Stated Complaint: ACID REFLUX/CHEST/BACK/STOMACH PAIN Nursing Triage Note: pt was seen 02/16 et diagnosed with acid reflux. she is taking tylenol et tums. reports chest pain is worsening, back pain, vomiting. Sepsis Screen: No Definite Risk Source of Information: Patient Exam Limitations: No Limitations History of Present Illness Time Seen By Provider: 22:47 Initial Comments This 21-year-old young lady presents to the emergency room about 6 weeks with complaints of right upper back pain, diffuse upper abdominal pain, and chest discomfort. It was intermittent during her and now has been constant for about one week. She was seen 2 days ago in this ER for chest pain and evaluate CT angiogram. She was treated and dismissed home. She has been taking Pepcid, Tums, and Tylenol without any relief. She has associated vomiting. She denies fever. Today for lunch she ate a salad. At 19 :00 she had a couple bites of mac & cheese along with bread and butter. She vomited this food promptly. She reports her pain at its worst as 9/10. Allergies and Home Medications Allergies Coded Allergies: No Known Drug Allergies (Unverified , 01/31/09) Home Medications No Active Prescriptions or Reported Meds Review of Systems Constitutional: no symptoms reported EENTM: No Symptoms Reported Respiratory: No Symptoms Reported Cardiovascular: No Symptoms Reported Gastrointestinal: See HPI Genitourinary: No Symptoms Reported Musculoskeletal: no symptoms reported Skin: no symptoms reported Psychiatric/Neurological: No Symptoms Reported Endocrine: No Symptoms Reported Hematologic/Lymphatic: No Symptoms Reported Past Uegtgjy-Usxvdk-Qdisrs Hx Patient Social History Alcohol Use: Denies Use Recreational Drug Use: No Smoking Status: Never a Smoker 2nd Hand Smoke Exposure: No Recent Foreign Travel: No Contact w/Someone Who Travel: No Recent Infectious Disease Expo: No Recent Hopitalizations: No Immunizations Up To Date Tetanus Booster (TDap): Unknown Date of Influenza Vaccine: Dec 05, 2016 Seasonal Allergies Seasonal Allergies: No Surgeries History of Surgeries: Yes Surgeries: Section Respiratory History of Respiratory Disorde: No Cardiovascular History of Cardiac Disorders: No Neurological History of Neurological Disord: No Reproductive System : No Hx Reproductive Disorders: No Sexually Transmitted Disease: No HIV/AIDS: No Female Reproductive Disorders: Denies Genitourinary History of Genitourinary Disor: No Gastrointestinal History of Gastrointestinal Di: Yes Gastrointestinal Disorders: Gastroesophageal Reflux Musculoskeletal History of Musculoskeletal Dis: No Endocrine History of Endocrine Disorders: No HEENT History of HEENT Disorders: No Cancer History of Cancer: No Psychosocial History of Psychiatric Problem: No Integumentary History of Skin or Integumenta: No Blood Transfusions History of Blood Disorders: No Family Medical History Significant Family History: Diabetes Physical Exam Vital Signs VS - Last 72 Hours, by Label 02/18/17 02/19/17 21:38 00:12 Temp 97.2 97.2 Pulse 54 Resp 18 B/P (MAP) 116/68 (84) O2 Delivery Room Air Capillary Refill : Less Than 3 Seconds General Appearance: WD/WN, no apparent distress HEENT: PERRL/EOMI, normal ENT inspection Respiratory: lungs clear, normal breath sounds, no respiratory distress, no accessory muscle use Cardiovascular: regular rate, rhythm, no edema, no murmur Gastrointestinal: normal bowel sounds, soft, no organomegaly, No distended, No guarding, No rebound, tenderness (epigastrium and right upper quadrant) Extremities: normal inspection, no pedal edema Neurologic/Psychiatric: 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 tested, no motor/sensory deficits, alert, normal mood/affect, oriented x 3 Skin: normal color, warm/dry Progress/Results/Core Measures Results/Orders Lab Results Laboratory Tests Test 02/18/17 23:05 02/18/17 23:10 Range/Units Urine Color JENNIFER H Urine Clarity SLIGHTLY CLOUDY Urine pH 6 5-9 Urine Specific [place] 1.025 H 1.016-1.022 Urine Protein 2+ H NEGATIVE Urine Glucose (UA) NEGATIVE NEGATIVE Urine Ketones NEGATIVE NEGATIVE Urine Nitrite NEGATIVE NEGATIVE Urine Bilirubin 2+ H NEGATIVE Urine Urobilinogen 4 H NORMAL MG/DL Urine Leukocyte Esterase 3+ H NEGATIVE Urine RBC (Auto) 5+ H NEGATIVE Urine RBC 5-10 H /HPF Urine WBC >100 H /HPF Urine Squamous Epithelial Cells 10-25 H /HPF Urine Crystals NONE /LPF Urine Bacteria LARGE H /HPF Urine Casts NONE /LPF Urine Mucus NEGATIVE /LPF Urine Culture Indicated YES White Blood Count 7.9 4.3-11.0 10^3/uL Red Blood Count 4.54 4.35-5.85 10^6/uL Hemoglobin 13.0 11.5-16.0 G/DL Hematocrit 39 35-52 % Mean Corpuscular Volume 86 80-99 FL Mean Corpuscular Hemoglobin 29 25-34 PG Mean Corpuscular Hemoglobin Concent 33 32-36 G/DL Red Cell Distribution Width 15.6 H 10.0-14.5 % Platelet Count 190 130-400 10^3/uL Mean Platelet Volume 10.1 7.4-10.4 FL Neutrophils (%) (Auto) 54 42-75 % Lymphocytes (%) (Auto) 28 12-44 % Monocytes (%) (Auto) 9 0-12 % Eosinophils (%) (Auto) 8 0-10 % Basophils (%) (Auto) 1 0-10 % Neutrophils # (Auto) 4.3 1.8-7.8 X 10^3 Lymphocytes # (Auto) 2.2 1.0-4.0 X 10^3 Monocytes # (Auto) 0.7 0.0-1.0 X 10^3 Eosinophils # (Auto) 0.6 H 0.0-0.3 10^3/uL Basophils # (Auto) 0.0 0.0-0.1 10^3/uL Sodium Level 143 135-145 MMOL/L Potassium Level 3.6 3.6-5.0 MMOL/L Chloride Level 107 98-107 MMOL/L Carbon Dioxide Level 24 21-32 MMOL/L Anion Gap 12 5-14 MMOL/L Blood Urea Nitrogen 8 7-18 MG/DL Creatinine 0.85 0.60-1.30 MG/DL Estimat Glomerular Filtration Rate > 60 BUN/Creatinine Ratio 9 Glucose Level 83 70-105 MG/DL Calcium Level 9.8 8.5-10.1 MG/DL Total Bilirubin 2.4 H 0.1-1.0 MG/DL Aspartate Amino Transf (AST/SGOT) 171 H 5-34 U/L Alanine Aminotransferase (ALT/SGPT) 322 H 0-55 U/L Alkaline Phosphatase 156 H 40-136 U/L C-Reactive Protein High Sensitivity 1.54 H 0.00-0.50 MG/DL Total Protein 7.7 6.4-8.2 GM/DL Albumin 4.0 3.2-4.5 GM/DL Lipase 28 8-78 U/L Serum Test, Qualitative NEGATIVE NEGATIVE My Orders Orders - JUAREZ ADAME MD Cbc With Automated Diff (02/18/17 22:56) Comprehensive Metabolic Panel (02/18/17 22:56) Lipase (02/18/17 22:56) Ua Culture If Indicated (02/18/17 22:56) Saline Lock/Iv-Start (02/18/17 22:56) Ns Iv 1000 Ml (Sodium Chloride 0.9%) (02/18/17 22:56) Ondansetron Injection (Zofran Injectio (02/18/17 23:00) Hcg,Qualitative Serum (02/18/17 22:56) Hs C Reactive Protein (02/18/17 22:56) Urine Culture (02/18/17 23:05) Ceftriaxone Injection (Rocephin Injectio (02/18/17 23:45) Us Gallbladder [id number] (02/18/17 23:47) Fentanyl Injection (Sublimaze Injection (02/19/17 00:00) Medications Given in ED Current Medications Medications Dose Ordered Sig/Hernandez Route Start Time Stop Time Status Last Admin Dose Admin Ceftriaxone Sodium 1000 mg/ Sodium Chloride 50 ml @ 100 mls/hr ONCE ONCE IV 02/18/17 23:45 02/19/17 00:14 DC 02/18/17 23:46 100 MLS/HR Fentanyl Citrate 50 mcg ONCE ONCE IVP 02/19/17 00:00 02/19/17 00:01 DC 02/19/17 00:12 50 MCG Ondansetron HCl 8 mg ONCE ONCE IVP 02/18/17 23:00 02/18/17 23:01 DC 02/18/17 23:08 8 MG Sodium Chloride 1,000 ml @ 0 mls/hr Q0M ONCE IV 02/18/17 22:56 02/18/17 22:58 DC 02/18/17 23:08 0 MLS/HR Vital Signs/I&O Vital Sign - Last 12Hours 02/18/17 02/19/17 21:38 00:12 Temp 97.2 97.2 Pulse 54 Resp 18 B/P (MAP) 116/68 (84) O2 Delivery Room Air Intake and Output 02/19/17 00:00 Intake Total 1050 ml Balance 1050 ml Blood Pressure Mean: 84 Progress Note : Time: 23:47 Progress Note Transaminases are elevated. Gallbladder ultrasound has been ordered. Fentanyl has been ordered for pain. UA suggested urinary tract infection. Rocephin has been ordered. Diagnostic Imaging Diagonstic Imaging: Ultrasound Plain Films/CT/US/NM/MRI: abdomen Comments [facility] report reviewed. Distended gallbladder containing multiple stones and sludge. No wall thickening or. Cholecystic fluid. Dilated common bile duct measuring 9 mm. Distal obstructing stone is not excluded. Departure Communication (Admissions) Time/Spoke to Admitting Phy: 01:[address] Javier suggested admission with anticipation of cholecystectomy later today. He requested no antibiotics beyond the Rocephin for urinary tract infection. Impression Impression: Primary Impression: Cholelithiasis Qualified Codes: K80.21 - Calculus of gallbladder without cholecystitis with obstruction Additional Impression: Urinary tract infection Qualified Codes: N39.0 - Urinary tract infection, site not specified Disposition: ADMITTED INPATIENT Condition: Against Medical Advice Admissions Decision to Admit Reason: Admit from ER (General) Decision to Admit/Date: Feb 19, 2017 Time/Decision to Admit Time: 01:20 Departure-Patient Inst. Referrals: ANNA BURRELL MD (PCP/Family) Primary Care Physician Scripts No Active Prescriptions or Reported Meds JUAREZ ADAME MD Feb 19, 2017 00:30
[2017-02-19 01:55] VITALS: BP 134/71
[2017-02-19] MEDS: fentaNYL INJECTION 100 MCG/2 ML AMP IV PRN ×3 (02:38→09:46)
[2017-02-19] MEDS: D5 1/2 NS W/KCL 20 MEQ/L 1,000 ML IV SCH ×2 (02:38→11:00)
[2017-02-19 04:00] VITALS: BP 103/61
[2017-02-19] MEDS: ONDANSETRON 4 MG/2 ML (SDV) Z0FRAN IV PRN ×3 (04:38→15:36)
--- NOTE | 2017-02-19 07:03 | Diagnostic Imaging Report ---
PROCEDURE: US Gallbladder. TECHNIQUE: Multiple real-time grayscale images were obtained over the right upper quadrant in various projections. INDICATION: Right upper quadrant pain COMPARISON: None available. FINDINGS: The liver is normal in size and echogenicity. There is no focal hepatic mass. The main portal vein is patent with antegrade flow. Gallbladder is normally distended with numerous mobile echogenic shadowing gallstones present. No pericholecystic fluid or gallbladder wall thickening. The common bile duct measures up to 0.9 cm in diameter. No intrahepatic biliary dilation. The visualized portions of the pancreas are normal. Portions of the head and tail are obscured by overlying bowel gas. The right kidney is normal in size. No hydronephrosis, shadowing calculi, or suspicious mass lesion. IMPRESSION: 1. Cholelithiasis without structural changes of acute cholecystitis. 2. The common bile duct is mildly dilated and could be due to a distal obstructing stone. Consider nuclear medicine HIDA scan or MRCP if additional imaging is deemed necessary. Dictated by: Dictated on workstation # [id number]
[2017-02-19] MEDS ORDERED: ACET-2267 PO (07:23)
[2017-02-19] MEDS ORDERED: FAMO-119 PO (07:23)
[2017-02-19] MEDS ORDERED: CALC-870 PO (07:23)
[2017-02-19 07:53] VITALS: BP 110/74
--- NOTE | 2017-02-19 08:48 | History & Physical-Surgical ---
History of Present Illness History of Present Illness Reason for visit/HPI CC: abdominal pain Patient is a 21 year old female who has been having episodes of abdominal and chest pain. She was recently seen in the emergency department treated for GERD. Having no improvement. Patient having moderate to severe pain now in abdomen and chest. Radiates around right side to back. Having nausea and emesis at times. She had u/s demonstrating cholelithiasis no evidence of cholecystitis but dilated cbd possible stone causing obstruction. Patient is NPO at this time. Date of Admission Feb 19, 2017 at 1:28 am Date Seen by Provider: Feb 19, 2017 Time Seen by Provider: 08:44 I consulted on this patient on 02/19/17 08:42 Attending Physician Anuel Javier DO Admitting Physician Linsey Thornton MD Consult Allergies and Home Medications Allergies Coded Allergies: No Known Drug Allergies (Unverified , 01/31/09) Home Medications Acetaminophen 500 Mg Tablet, 1,000 MG PO Q6H PRN for PAIN-MILD, (Reported) TAKES 2 (500MG) TABLETS Calcium Carbonate 300 Mg Tab.chew, 600 MG PO QID PRN for HEARTBURN, (Reported) Famotidine 20 Mg Tablet, 20 MG PO DAILY, (Reported) Past Lhnsmhz-Pdipry-Fjgyal Hx Patient Social History Alcohol Use: Denies Use Recreational Drug Use: No Smoking Status: Never a Smoker 2nd Hand Smoke Exposure: No Recent Foreign Travel: No Contact w/Someone Who Travel: No Recent Infectious Disease Expo: No Recent Hopitalizations: No Physical Abuse Screen: No Sexual Abuse: No Immunizations Up To Date Tetanus Booster (TDap): Unknown Date of Influenza Vaccine: Dec 05, 2016 Seasonal Allergies Seasonal Allergies: No Surgeries History of Surgeries: Yes Surgeries: Section Respiratory History of Respiratory Disorde: No Cardiovascular History of Cardiac Disorders: No Neurological History of Neurological Disord: No Reproductive System : No Hx Reproductive Disorders: No Sexually Transmitted Disease: No HIV/AIDS: No Female Reproductive Disorders: Denies Genitourinary History of Genitourinary Disor: No Gastrointestinal History of Gastrointestinal Di: Yes Gastrointestinal Disorders: Gastroesophageal Reflux Musculoskeletal History of Musculoskeletal Dis: No Endocrine History of Endocrine Disorders: No HEENT History of HEENT Disorders: No Cancer History of Cancer: No Psychosocial History of Psychiatric Problem: No Integumentary History of Skin or Integumenta: No Blood Transfusions History of Blood Disorders: No Family Medical History Significant Family History: Diabetes Constitutional: no symptoms reported EENTM: no symptoms reported Respiratory: no symptoms reported Cardiovascular: see HPI Gastrointestinal: see HPI Genitourinary: no symptoms reported Musculoskeletal: back pain Skin: no symptoms reported Psychiatric/Neurological: No Symptoms Reported Physical Exam Vital Signs Vital Sign - Last 12Hours 02/18/17 02/19/17 21:38 01:37 Temp 97.2 Pulse 54 Resp 18 B/P (MAP) 116/68 (84) Pulse Ox 100 O2 Delivery Room Air Capillary Refill : Less Than 3 Seconds General Appearance: No Apparent Distress HEENT: PERRL/EOMI Neck: Non Tender, Supple Respiratory: Normal Breath Sounds, No Accessory Muscle Use, No Respiratory Distress Cardiovascular: Regular Rate, Rhythm Gastrointestinal: Normal Bowel Sounds, Tenderness (right upper quadrant) Rectal: Deferred Back: Normal Inspection Extremity: Normal Range of Motion, Non Tender Neurologic/Psychiatric: Alert, Oriented x3, No Motor/Sensory Deficits, Normal 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, 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 Norm as Tested Skin: Warm/Dry Data Review Labs Laboratory Tests 02/18/17 23:05: Urine Color AMBERH, Urine Clarity SLIGHTLY CLOUDY, Urine pH 6, Urine Specific [place] 1.025H, Urine Protein 2+H, Urine Glucose (UA) NEGATIVE, Urine Ketones NEGATIVE, Urine Nitrite NEGATIVE, Urine Bilirubin 2+H, Urine Urobilinogen 4H, Urine Leukocyte Esterase 3+H, Urine RBC (Auto) 5+H, Urine RBC 5-10H, Urine WBC > 100H, Urine Squamous Epithelial Cells 10-25H, Urine Crystals NONE, Urine Bacteria LARGEH, Urine Casts NONE, Urine Mucus NEGATIVE, Urine Culture Indicated YES 02/18/17 23:10: White Blood Count 7.9, Red Blood Count 4.54, Hemoglobin 13.0, Hematocrit 39, Mean Corpuscular Volume 86, Mean Corpuscular Hemoglobin 29, Mean Corpuscular Hemoglobin Concent 33, Red Cell Distribution Width 15.6H, Platelet Count 190, Mean Platelet Volume 10.1, Neutrophils (%) (Auto) 54, Lymphocytes (%) (Auto) 28 , Monocytes (%) (Auto) 9, Eosinophils (%) (Auto) 8, Basophils (%) (Auto) 1, Neutrophils # (Auto) 4.3, Lymphocytes # (Auto) 2.2, Monocytes # (Auto) 0.7, Eosinophils # (Auto) 0.6H, Basophils # (Auto) 0.0, Sodium Level 143, Potassium Level 3.6, Chloride Level 107, Carbon Dioxide Level 24, Anion Gap 12, Blood Urea Nitrogen 8, Creatinine 0.85, Estimat Glomerular Filtration Rate > 60, BUN/ Creatinine Ratio 9, Glucose Level 83, Calcium Level 9.8, Total Bilirubin 2.4H, Aspartate Amino Transf (AST/SGOT) 171H, Alanine Aminotransferase (ALT/SGPT) 322H , Alkaline Phosphatase 156H, C-Reactive Protein High Sensitivity 1.54H, Total Protein 7.7, Albumin 4.0, Lipase 28, Serum Test, Qualitative NEGATIVE Assessment/Plan Assessment/Plan Assessment/Plan ruq abdominal pain symptomatic cholelithiasis hyperbilirubinemia discussed risks and benefits of laparoscopic cholecystectomy with intraoperative cholangiogram all other indicated procedures her and family understand risks and benefits and wishes to proceed, to be done later today. discussed may need ERCP depending on cholangiogram Clinical Quality Measures DVT/VTE Risk/Contraindication: Risk Factor Score Per Nursin RFS Level Per Nursing on Admit: 2=Moderate ANUEL JAVIER DO Feb 19, 2017 8:48 am
[2017-02-19] MEDS ORDERED: ceFAZolin 2 GM/50 ML NS 50 ML IV NR (09:00)
[2017-02-19] MEDS ORDERED: FAMOTIDINE 20MG/2ML IV (PEPCID) IVP SCH (09:00)
[2017-02-19] MEDS ORDERED: CATHETER FLUSH 10 ML SYR IV PRN (09:15)
[2017-02-19] MEDS ORDERED: BUPIVACAINE 0.5% 30 ML (SENSORCAINE) VIAL ONE (11:13)
[2017-02-19] MEDS ORDERED: LIDOCAINE 1% INJ 20 ML (XYLOCAINE) VIAL ONE (11:14)
[2017-02-19] MEDS: LACTATED RINGERS 1,000 ML IV PRN ×2 (11:48→13:10)
[2017-02-19] MEDS ORDERED: LIDOCAINE PF 2% 5 ML (XYLOCAINE) VIAL ONE (11:59)
[2017-02-19] MEDS ORDERED: ROCURONIUM 50 MG/5 ML (ZEMURON) VIAL IV ONE (11:59)
[2017-02-19] MEDS ORDERED: proPOfol 200 MG/20 ML (DIPRIVAN) VIAL IV ONE (11:59)
[2017-02-19] MEDS ORDERED: ONDANSETRON 4 MG/2 ML (SDV) Z0FRAN ONE (11:59)
[2017-02-19] MEDS ORDERED: fentaNYL INJECTION 100 MCG/2 ML AMP ONE (11:59)
[2017-02-19] MEDS ORDERED: MIDAZOLAM 2 MG/2 ML (VERSED) VIAL ONE (11:59)
[2017-02-19] MEDS ORDERED: LACTATED RINGERS 1,000 ML IV ONE (11:59)
[2017-02-19] MEDS ORDERED: SEVOFLURANE (ULTANE) 15 ML INHAL SOLN ONE ×6 (12:05→13:18)
[2017-02-19] MEDS ORDERED: ATROPINE INJ 0.4 MG/ML SDV ONE (12:44)
[2017-02-19] MEDS ORDERED: ESMOLOL 100 MG/10 ML (BREVIBLOC) VIAL ONE (13:01)
[2017-02-19] MEDS ORDERED: GLYCOPYRROLATE 0.2 MG/ML (ROBINUL) 2 ML VIAL ONE (13:18)
[2017-02-19] MEDS ORDERED: NEOSTIGMINE (BLOXIVERZ ) 1 MG/1ML 10 ML VIAL ONE (13:18)
--- NOTE | 2017-02-19 13:23 | Progress Note-Post Operative ---
Post-Operative Progess Note Surgeon (s)/Invasive Cardiovascular Technologist (s) Surgeon ANUEL FOUNTAIN DO Invasive Cardiovascular Technologist: na Pre-Operative Diagnosis symptomatic cholelithiasis, hyperbilirubinemia Post-Operative Diagnosis cholelithiasis, distal cbd obstruction Procedure & Operative Findings Date of Procedure 02/19/17 Procedure Performed/Findings lap marco c ioc Anesthesia Type general Estimated Blood Loss Estimated blood loss (mL): minimal Specimens/Packing Specimens Removed gallbladder ANUEL FOUNTAIN DO Feb 19, 2017 13:23
[2017-02-19] MEDS ORDERED: HYDR-3812 PO (13:24)
--- NOTE | 2017-02-19 13:29 | Discharge Inst-Simple/Standard ---
Discharge Inst-Standard Discharge Medications New, Converted or Re-Newed RX: RX on Chart Patient Instructions/Follow Up Plan of Care/Instructions/FU: 2 weeks Concepcion. Transfer for ERCP Dr. Cameron. Activity as Tolerated: No Discharge Diet: Other Diet (nothing to eat or drink until given Diet by Cook Pressure.) Other Inst to Patient Follow up Appt: Make appointment for 2 weeks. Instructions: No lifting greater than 10 pounds. No strenuous activity. May shower in 24 hours, no tub bath or soaking. Use incentive spirometer at home as directed. No Smoking Skin/Wound Care: May remove bandages in 24 hours. You need to leave the white strips over incision on they will fall off on their own. Symptoms to Report: Appetite Changes, Extremity Discoloration, Numbness/Tingling, Swelling Increased , Bleeding Excessive, Eyesight Changes, Pain Increased, Urine Color Change, Constipation(Persistent), Fever over 101 degree F, Pain/Pressure in chest, Urinating Difficulty, Cough Up/Vomit Blood, Heart Beat Irreg/Pounding, Pain/ Pressure in jaw, Vaginal Bleeding Increase, Cramps in feet or legs, Lightheadedness, Pain/Pressure in shoulder, Diarrhea(Persistent), Memory Changes Suddenly, Questions/Concerns, Weight gain consecutive days, Dizziness/ Fainting, Nausea/Vomiting, Shortness of Breath, Weight gain over 2 pounds. If eyes or skin turn yellow notify physician. If questions or concerns contact your physician Or seek help at emergency department. ANUEL FOUNTAIN DO Feb 19, 2017 13:29
[2017-02-19] MEDS ORDERED: morphine INJ 4 MG/ML 1 ML (VIAL/SYRINGE) IVP PRN (13:30)
[2017-02-19] MEDS ORDERED: HYDROcodone/APAP 5 MG/325 MG (LORTAB) TAB PO PRN (13:30)
[2017-02-19] MEDS ORDERED: PROMETHAZINE INJ 25 MG/ML (PHENERGAN) AMP IVP PRN (13:45)
[2017-02-19] MEDS ORDERED: fentaNYL INJECTION 100 MCG/2 ML AMP IVP PRN (13:45)
[2017-02-19] MEDS ORDERED: ONDANSETRON 4 MG/2 ML (SDV) Z0FRAN IVP PRN (13:45)
[2017-02-19] MEDS ORDERED: MEPERIDINE (DEMEROL) INJ 50 MG/ML IVP PRN (13:45)
[2017-02-19 14:30] VITALS: BP 125/82
--- NOTE | 2017-02-19 15:30 | Diagnostic Imaging Report ---
EXAMINATION: Intraoperative cholangiogram. INDICATION: Abdominal pain. Laparoscopic hysterectomy performed. FLUOROSCOPY TIME: 20 seconds of fluoroscopy time was provided. CONTRAST: 7 mL of Omnipaque 300 was utilized. FINDINGS: The CBD is dilated. There is no passage of contrast seen into the duodenum; however, there is no well delineated filling defect to confirm a stone or obstruction at the ampulla of Vater level. There is suggestion of mild dilatation of the central intrahepatic bile ducts. IMPRESSION: Findings are compatible with CBD obstruction which could be due to a distal CBD stone or periampullary lesion. The findings were discussed with Dr. Javier at the time of dictation. Dictated by: Dictated on workstation # [id number]
--- NOTE | 2017-02-19 21:10 | OPERATIVE REPORT ---
DATE OF SERVICE: 02/19/2017 PREOPERATIVE DIAGNOSIS: Symptomatic cholelithiasis. POSTOPERATIVE DIAGNOSIS: Symptomatic cholelithiasis and distal common bile duct obstruction. PROCEDURE: Laparoscopic cholecystectomy with intraoperative cholangiogram. SURGEON: Evans Javier DO OCCUPATIONAL HEALTH PHYSIOTHERAPIST: Dr. Erazo, assisted in retraction, dissection and closure. ANESTHESIA: General. ESTIMATED BLOOD LOSS: Minimal. COMPLICATIONS: None. INDICATIONS: The patient is a 21-year-old female who has been having some chest and upper abdominal pain with radiation to the back. She had a gallbladder ultrasound demonstrating stones and dilated biliary tree with no surrounding the gallbladder fluid or gallbladder wall thickening. She was explained risks of procedure and wished to proceed with procedure. Consent was signed and on the chart. DESCRIPTION OF PROCEDURE: The patient was taken to the operating suite, she was prepped and draped in sterile fashion. Surgical pause was performed. A 12 mm incision was made just above the umbilicus, and dissected down to the fascia, which was then scored and grasped with Flower's. The abdomen was then entered. A balloon trocar was inserted after 0 Vicryl was placed in a extlyu-az-klzli fashion. A pneumoperitoneum was achieved. Under direct visualization of the laparoscope, a 5 mm trocar was then placed in the subxiphoid region and two 5 mm trocars were placed in the right upper quadrant. The gallbladder was grasped and elevated. There were some adhesions to the gallbladder which were then taken down. The common bile duct was visualized and dilated. The cystic artery was then dissected out. Clips were placed on the proximal and distal portion and this was then transected. The cystic artery was then dissected out. A clip was placed on the distal portion of the cystic duct which was also dilated and the duct was then partially transected. The back pressure caused some bile coming out from the partially transected duct. The Arrow catheter was inserted into the duct and cholangiogram was then performed. Contrast made its way into the duct but was obstructed CBD distally. The cholangiogram was then again reperformed with no different findings. The catheter was removed. Clips were placed on the proximal portion of the cystic duct and the duct was then completely transected. Hook cautery was used to dissect the gallbladder from the gallbladder fossa achieving hemostasis. Once removed the gallbladder was placed in an Endobag and removed through the 12 mm trocar site. Copious amounts of irrigation was used to irrigate the abdomen. The abdomen was then desufflated, the trocars were removed. The 0 Vicryl at the umbilicus was closed. The skin was then closed using 4-0 Monocryl. The area was then washed and dried and Dermabond was placed over incisions. The patient tolerated procedure well without any complications. She was taken to recovery room in stable condition. RECOMMENDATIONS: The patient will need an ERCP and will arranged for transfer. Dr. Cameron was contacted and is arranging. Job ID: [id number] DocumentID: [id number] Dictated Date: 02/19/2017 15:19:04 Wireless Sales Expert Date: 02/19/2017 21:09:18 Dictated By: DO JONATHAN VELEZ
[2017-02-19] MEDS ORDERED: cefTRIAXone INJECTION 1,000 MG in NS (IVPB) 50 ML IV SCH (22:00)
== END 2017-02-19 15:50 | disposition short-term general hospital (02) ==
LOC: EDUNIT# 21:11 → ER 21:12 → 4TH 02-19 01:28 → UNDOADMIN 02-19 01:28 → SDC 02-19 01:28 → UNDODISIN 02-19 15:50
PROVIDERS: ATTEND Surgery
DX: K80.21 Calculus of gallbladder without cholecystitis with obstruction (principal); N39.0 Urinary tract infection, site not specified; K21.9 Gastro-esophageal reflux disease without esophagitis
CPT/HCPCS: 36415; 76705; 80053; 81000; 83690; 84703; 85025; 86141; 87081; 87088; 88304; 96361; 96374; 96375

== ENCOUNTER 2018-03-24 20:32 | Emergency (ER) | payer MEDICAID ==
[~2018-03-24] VITALS: Ht 154.9 cm; Wt 81.6 kg
[~2018-03-24 20:32] MED LIST changes: +ACET-2267 PO; +ACHD5005 PO; +CALC-870 PO; +FAMO-119 PO; -HYDR-3812 PO; +NAPR-915 PO; -NAPR500T4 PO
--- NOTE | 2018-03-24 21:16 | ED EENT ---
History of Present Illness General Chief Complaint: Eye Problems Stated Complaint: SWOLLEN EYE, PAIN IN EYE Nursing Triage Note: Patient advises her right eyelid began swelling yesterday and it has gotten progressively worse. She denies hx. of fever, discharge and states she has not taken any medication. Allergies and Home Medications Allergies Coded Allergies: No Known Drug Allergies (Unverified , 03/24/18) Home Medications Hydrocodone Bit/Acetaminophen 1 Each Tablet, 1 TAB PO Q4H PRN Prescribed by: ANUEL FOUNTAIN on 02/19/17 1324 Past Jcqrgrr-Unsueg-Nmzrhq Hx Patient Social History Alcohol Use: Denies Use Recreational Drug Use: No Smoking Status: Never a Smoker 2nd Hand Smoke Exposure: No Recent Foreign Travel: No Contact w/Someone Who Travel: No Recent Infectious Disease Expo: No Recent Hopitalizations: No Immunizations Up To Date Tetanus Booster (TDap): Unknown Date of Influenza Vaccine: Dec 05, 2016 Seasonal Allergies Seasonal Allergies: No Past Medical History Surgeries: Yes Section Respiratory: No Cardiac: No Neurological: No Reproductive Disorders: No Female Reproductive Disorders: Denies Sexually Transmitted Disease: No HIV/AIDS: No Genitourinary: No Gastrointestinal: Yes Gastroesophageal Reflux Musculoskeletal: No Endocrine: No HEENT: No Cancer: No Psychosocial: No Integumentary: No Blood Disorders: No Family Medical History Diabetes Physical Exam Vital Signs Vital Signs - First Documented 03/24/18 20:51 Temp 98.6 Pulse 92 Resp 14 B/P (MAP) 125/88 (100) Pulse Ox 98 O2 Delivery Room Air Height, Weight, BMI Height: 5'1.00" Weight: 180lbs. 0.0oz. 81.134467bt; 35.2 BMI Method:Stated Progress/Results/Core Measures Results/Orders Vital Signs/I&O 03/24/18 20:51 Temp 98.6 Pulse 92 Resp 14 B/P (MAP) 125/88 (100) Pulse Ox 98 O2 Delivery Room Air Blood Pressure Mean: 100 Departure Impression Primary Impression: Hordeolum of right upper eyelid Disposition: 01 HOME, SELF-CARE Condition: Stable Departure-Patient Inst. Referrals: ANNA BURRELL MD (PCP/Family) Primary Care Physician Patient Instructions: Stye (Hordeolum) Add. Discharge Instructions: MOIST HEAT TO AREA AT 20 MINUTE INTERVALS TYLENOL AND MOTRIN NEEDED FOR PAIN FOLLOW UP WITH YOUR DR IN 3-4 DAYS IF NO BETTER All discharge instructions reviewed with patient and/or family. Voiced understanding. Scripts Gentamicin Sulfate (Gentak) 3.5 Gm Oint...g. 0.5 INCH IT QID, #3.5 TUBE Prov: DENIZ JOHNSON DO 03/24/18 Sulfamethoxazole/Trimethoprim (Bactrim Ds Tablet) 1 Each Tablet 1 EACH PO BID, #20 TAB Prov: DENIZ JOHNSON DO 03/24/18 DENIZ JOHNSON DO Mar 24, 2018 21:16
[2018-03-24] MEDS ORDERED: GNT.3OO351 IT (21:19)
[2018-03-24] MEDS ORDERED: SULF1TAB35 PO (21:19)
[2018-03-24] MEDS ORDERED: RX-GENTAMICIN 0.3% OP OINT 3.5 GM TUBE OP STA (21:20)
[2018-03-24] MEDS ORDERED: RX-TRIMETH/SULFA. 160-800 MG (BACTRIM DS) TAB PPK#2 PO STA (21:20)
[2018-03-24] MEDS ORDERED: RX-GENTAMICIN SULFATE 0.3% OP 5 ML BTL ONE ×2 (21:22→21:28)
[2018-03-24 21:35] VITALS: BP 125/88
[2018-03-24] MEDS ORDERED: RX-GENTAMICIN SULFATE 0.3% OP 5 ML BTL OP STA (21:44)
--- NOTE | 2018-03-24 21:45 | NUR ---
opthalmic paste unavailable, solution administered per physician order.
== END 2018-03-24 21:35 | disposition home or self-care (01) ==
LOC: EDUNIT# 20:32 → ER 20:36
DX: H00.011 Hordeolum externum right upper eyelid (principal); K21.9 Gastro-esophageal reflux disease without esophagitis; Z98.890 Other specified postprocedural states
CPT/HCPCS: 99282

== ENCOUNTER 2018-04-28 19:32 | Emergency (ER) | payer MEDICAID ==
[~2018-04-28 19:32] MED LIST changes: +GNT.3OO351 IT; +SULF1TAB35 PO
--- NOTE | 2018-04-28 19:37 | NUR ---
PT BROUGHT BACK TO EXAM ROOM, DURING TRIAGE ASSESSMENT THE PT ASKED ABOUT ULTRASOUND IMAGING, EXPLAINED TO PT THAT THE ULTRASOUND DEPT. LEAVES AT 1600 AND IS UNAVAILABLE IN HOUSE AND THAT THE PT WILL REQUIRE TRANSFER TO A CAPABLE FACILITY, PT STATES SHE DOES NOT WISH TO BE TRANSFERRED AND REQUESTED TO LEAVE WITHOUT BEING SEEN.
== END 2018-04-28 19:52 | disposition left against medical advice (07) ==
LOC: EDUNIT# 19:32 → ER 19:34
DX: R10.9 Unspecified abdominal pain (principal); Z33.1 Pregnant state, incidental

== ENCOUNTER → 2018-05-05 | Outpatient (CLI) | payer MEDICAID ==
--- NOTE | 2018-05-05 17:14 | Diagnostic Imaging Report ---
INDICATION: Spotting and uncertain dates. FINDINGS: There is an intrauterine gestational sac containing a pole. [place]-rump length is approximately 4 mm consistent with 6 weeks 1 day gestation. heart rate was recorded at 111 beats per minute. Small region of hypoechogenicity is identified adjacent to the gestational sac consistent with a small subchorionic bleed. This measures approximately 11 mm x 5 mm. The shape of the gestational sac is unremarkable. Right ovary is unremarkable. Left ovary was not visualized. IMPRESSION: Single live IUP approximately 6 weeks 1 day gestational age with estimated date of confinement sonographically of 12/28/2018. There is a small subchorionic bleed. No other abnormality is detected. Dictated by: Dictated on workstation # [id number]
== END ==
LOC: RAD 13:18
PROVIDERS: ATTEND Family Medicine
DX: O26.851 Spotting complicating pregnancy, first trimester (principal); Z3A.01 Less than 8 weeks gestation of pregnancy
CPT/HCPCS: 76801; 76817

== ENCOUNTER → 2018-08-12 | Outpatient (CLI) | payer MEDICAID ==
--- NOTE | 2018-08-12 15:02 | Diagnostic Imaging Report ---
INDICATION: anatomical assessment during normal . TECHNIQUE: Multiple real-time grayscale images were obtained over the gravid uterus. COMPARISON: 05/05/2018 FINDINGS: There is presence of a single viable intrauterine currently in a cephalic presentation. Normal amount of amniotic fluid. Placenta anterior and without previa. Visualized anatomical structures appearing unremarkable. This includes the kidneys, bladder, intracranial structures, four-chamber heart, three-vessel cord and cord insertion site. However, particularly the spine and stomach are not able to be well visualized at this time. Cervical length 4.3 cm. Maternal adnexa not visualized. Biometrical measurements are as follows: Biparietal 4.81 cm, age 20 weeks 4 days. Head circumference 17.56 cm, age 20 weeks 1 days. Abdominal circumference 14.46 cm, age 19 weeks 6 days. Femur length 3.31 cm, age 20 weeks 3 days. Sonographic estimate age: 20 weeks 2 days. Sonographic estimated date of delivery: 12-28-18. Estimated Weight: 330 gm (+/- 48 gm). LMP percentile: 33%. heart rate: 144 beats per minute. number: 1 of 1. IMPRESSION: 1. Single viable intrauterine currently in a cephalic presentation. Sonographic estimated age 20 weeks 2 days for an estimated date of delivery 12/28/2018. This corresponds to appropriate growth and development from baseline study. 2. anatomical assessment is unremarkable. However, it is noted that the stomach and spine are not able to be well evaluated on this current study. Dictated by: Dictated on workstation # [id number]
== END ==
LOC: RAD 12:45
PROVIDERS: ATTEND Obstetrics & Gynecology
DX: Z34.92 Encounter for supervision of normal pregnancy, unspecified, second trimester (principal); Z3A.20 20 weeks gestation of pregnancy
CPT/HCPCS: 76805

== ENCOUNTER 2018-09-23 18:22 | Outpatient (CLI) | payer MEDICAID ==
[~2018-09-23] VITALS: Ht 152.4 cm; Wt 92.6 kg
--- NOTE | 2018-09-23 18:35 | NUR ---
PAMELA LOPEZ presented to unit from ED, accompanied by family, with c/o LOWER BACK PAIN. PAMELA LOPEZ weighed, gowned, voided, and to bed. EFHM and TOCO applied, VS taken. PAMELA LOPEZ oriented to bed controls, call light, TV, heat, and A/C controls.
[2018-09-23 18:43] VITALS: BP 120/64
--- NOTE | 2018-09-23 18:54 | NUR ---
SVE Closed/Thick/High.
--- NOTE | 2018-09-23 19:00 | NUR ---
FHR 135-140's. No decels noted. No ctx's noted.
--- NOTE | 2018-09-23 19:09 | NUR ---
Dr. Hall notified of patient's arrival, complaints, and exam. New orders received.
--- NOTE | 2018-09-23 19:15 | NUR ---
Report to Lisbeth Hansen RN.
[2018-09-23 19:20] LABS: BILIRUBIN,URINE NEGATIVE (NEGATIVE); CLARITY,URINE SLIGHTLY CLOUDY; COLOR,URINE YELLOW; GLUCOSE, URINE (UA) 1+ (NEGATIVE); KETONES,URINE NEGATIVE (NEGATIVE); LEUKOCYTE ESTERASE ,URINE NEGATIVE (NEGATIVE); NITRITE,URINE NEGATIVE (NEGATIVE); PH,URINE 6 (5-9); PROTEIN,URINE NEGATIVE (NEGATIVE); UROBILINOGEN,URINE NORMAL (NORMAL)
--- NOTE | 2018-09-23 19:24 | NUR ---
Monitors dc'd. No contractions noted. +FM. FHR 140's.
[2018-09-23 19:28] LABS: AMORPHOUS SEDIMENT,UR RARE AMOR URATES /LPF; BACTERIA,URINE MODERATE /HPF; WBC,URINE RARE /HPF
--- NOTE | 2018-09-23 19:56 | NUR ---
Dr. Hall called and informed of pt lab results. Orders received for discharge.
--- NOTE | 2018-09-23 20:08 | NUR ---
Discharge paperwork reviewed and given to patient. Patient verbalized understanding of all discharge education. Patient and s/o ambulating off of unit at this time.
== END 2018-09-23 20:08 | disposition home or self-care (01) ==
LOC: WSo 18:22 → LDRP 18:22 → WSo 20:08
PROVIDERS: ATTEND Obstetrics & Gynecology
DX: O99.89 Other specified diseases and conditions complicating pregnancy, childbirth and the puerperium (principal); M54.5 Low back pain; Z3A.26 26 weeks gestation of pregnancy
CPT/HCPCS: 81000; 87088; 99213

== ENCOUNTER 2018-12-11 05:29 | Outpatient (CLI) | payer MEDICAID ==
[~2018-12-11] VITALS: Ht 152.4 cm; Wt 96.2 kg
== END 2018-12-11 09:13 | disposition home or self-care (01) ==
LOC: PREOP 05:29
PROVIDERS: ATTEND Obstetrics & Gynecology
DX: Z01.818 Encounter for other preprocedural examination (principal)

== ENCOUNTER 2018-12-21 13:16 | Inpatient (IN) | payer MEDICAID ==
[2018-12-21] VITALS (10 sets, daily range): BP systolic 107–133; BP diastolic 56–89
[~2018-12-21] VITALS: Ht 152.4 cm; Wt 99.6 kg
--- NOTE | 2018-12-21 13:25 | NUR ---
PAMELA LOPEZ presented to unit via ambulation, accompanied by family members, with c/o ctx's. Pt. weighed, gowned, voided, and to bed. EFHM and TOCO applied, VS taken. Pt. oriented to bed controls, call light, TV, heat, and A/C controls.
--- NOTE | 2018-12-21 14:25 | NUR ---
was called r/t pt's admit, monitor tracing and SVE. orders received for admission for repeat c/s.
--- NOTE | 2018-12-21 14:29 | NUR ---
nursing supervisor printing and stamping notified of pt's admission
--- NOTE | 2018-12-21 14:31 | NUR ---
RADHA Mujica notified of pt's admission and Dr's order for repeat c/s. pt reports eating a "corn dog" @ 1230. NPO since admission. plan rc/s @ 2029. update given to and nursing webbing supervisor of time of OR. RN webbing supervisor to notify OR crew.
--- NOTE | 2018-12-21 14:46 | NUR ---
Sil, LAMINATE FLOOR INSTALLER here to see pt.
[2018-12-21] MEDS ORDERED: CATHETER FLUSH 10 ML SYR IV PRN (15:30)
[2018-12-21] MEDS ORDERED: METOCLOPRAMIDE INJ 10 MG/2 ML (REGLAN) IV ONE (15:30)
[2018-12-21] MEDS ORDERED: CITRIC ACID/SOB CIT (BICITRA) 30 ML UDC PO ONE (15:30)
[2018-12-21] MEDS ORDERED: FAMOTIDINE 20MG/2ML IV (PEPCID) IV ONE (15:30)
--- NOTE | 2018-12-21 15:58 | History & Physical-OB ---
OB - Chief Complaint & HPI Date/Time Date of Admission: Date of Admission: Dec 21, 2018 at 14:25 Date seen by a Provider: Dec 21, 2018 Time Seen by a Provider: 19:30 Chief Complaint/History OB-Reason for Admission/Chief: Section Hx : 2 Hx Para: 1 Gestational Age in Weeks: 39 Other reason for admission: Patient presented at 39 weeks with RLTCS scheduled for tomorrow, with contractions she reports were regular. However once on monitoring multiple FHR variable decels noted, and patient kept for delivery Admission Nurse Assessment Rev: Yes History of Labs A neg Antibody neg RI RPR NR HBsAg NR HIV NR GC neg GBS neg Allergies and Home Medications Allergies Coded Allergies: No Known Drug Allergies (Unverified , 03/24/18) Home Medications No Active Prescriptions or Reported Meds Patient Home Medication List Home Medication List Reviewed: Yes OB - History Hx of Present Care: Yes Ultrasounds: Normal mid trimester US Obstetrical Complications: None Medical Complications: None Delivery History Hx Blood Disorders: No Patient Past Medical History PMHx: Denies PSurgHx: x1 Social History/Family History HIV/AIDS: No Sexually Transmitted Disease: No 2nd Hand Smoke Exposure: No Immunizations Tetanus Booster (TDap): Unknown Date of Influenza Vaccine: Dec 05, 2016 OB - Admission Exam Physical Exam HEENT: NCAT Heart: Rhythm Normal Lungs: Clear Abdomen: Gravid Extremities: Normal Reflexes: Normal Cervical Dilatation: 2cm Effacement: 75% Station: -2 Membranes: Intact Heart Rate: 130's Accelerations: Accelerations Present Decelerations: Variable Decelerations Short Term Variability: Present Chcf Variability: Average (6-25) Contractions on Admission: 6-10 Minutes Apart OB - Assessment/Plan/Diagnosis Assessment Assessment: section Admission Dx 23 yo @ 39 weeks heart rate decelerations Previous x 1 GBS neg Admission Status: Inpatient Order (span 2 midnights) Reason for Inpatient Admission: Repeat delivery at 39 weeks Plan Plan: Section LUKE MAGUIRE DO Dec 21, 2018 15:58
[2018-12-21] MEDS: LACTATED RINGERS 1,000 ML IV PRN ×3 (16:52→21:19)
--- NOTE | 2018-12-21 16:52 | NUR ---
#20g IV to Lt.hand x1 attempt by this RN. site patent, secured with opsite. admission labs collected from site prior to LR infusing.
[2018-12-21 17:10] LABS: BASOPHILS % (AUTO) 0 % (0-10); EOSINOPHILS # (AUTO) 0.2 10^3/uL (0.0-0.3); EOSINOPHILS % (AUTO) 2 % (0-10); HEMATOCRIT 33 % (35-52); HEMOGLOBIN 10.7 G/DL (11.5-16.0); LYMPHOCYTES # (AUTO) 2.3 X 10^3 (1.0-4.0); LYMPHOCYTES % (AUTO) 21 % (12-44); MEAN CORPUSCULAR HEMOGLOBIN 28 PG (25-34); MEAN CORPUSCULAR HGB CONC 32 G/DL (32-36); MEAN CORPUSCULAR VOLUME 87 FL (80-99); MEAN PLATELET VOLUME 9.6 FL (7.4-10.4); MONOCYTES # (AUTO) 0.8 X 10^3 (0.0-1.0); MONOCYTES % (AUTO) 8 % (0-12); NEUTROPHILS # (AUTO) 7.6 X 10^3 (1.8-7.8); NEUTROPHILS % (AUTO) 70 % (42-75); PLATELET COUNT 213 10^3/uL (130-400); RED CELL DISTRIBUTION WIDTH 16.8 % (10.0-14.5); WHITE BLOOD COUNT 10.9 10^3/uL (4.3-11.0)
[2018-12-21] MEDS ORDERED: ceFAZolin 2 GM/50 ML NS 50 ML IV ONE (18:44)
--- NOTE | 2018-12-21 19:00 | NUR ---
report given to EDISON Lee.
[2018-12-21 19:01] LABS: BILIRUBIN,URINE NEGATIVE (NEGATIVE); CLARITY,URINE CLEAR; COLOR,URINE YELLOW; GLUCOSE, URINE (UA) NEGATIVE (NEGATIVE); KETONES,URINE NEGATIVE (NEGATIVE); LEUKOCYTE ESTERASE ,URINE NEGATIVE (NEGATIVE); NITRITE,URINE NEGATIVE (NEGATIVE); PH,URINE 7 (5-9); PROTEIN,URINE NEGATIVE (NEGATIVE); UROBILINOGEN,URINE NORMAL (NORMAL)
[2018-12-21 19:08] LABS: BACTERIA,URINE MODERATE /HPF
[2018-12-21] MEDS ORDERED: FAMOTIDINE 20MG/2ML IV (PEPCID) ONE (19:25)
[2018-12-21] MEDS ORDERED: CITRIC ACID/SOB CIT (BICITRA) 30 ML UDC ONE (19:25)
[2018-12-21] MEDS ORDERED: METOCLOPRAMIDE INJ 10 MG/2 ML (REGLAN) ONE (19:25)
[2018-12-21] MEDS ORDERED: fentaNYL INJECTION 100 MCG/2 ML AMP ONE (19:43)
--- NOTE | 2018-12-21 19:44 | Discharge Inst-Women's Service ---
Discharge Inst-Women's Serv Depart Medication/Instructions New, Converted or Re-Newed RX: RX on Chart Final Diagnosis POD 2 RLTCS Problems Reviewed?: Yes Consults/Follow Up Additional Follow Up: Yes Orders/Referrals Dr. Rocha in 7-10 days and in 6 weeks Activity Activity: Activity as Tolerated Driving Instructions: No Driving for 1 Week NO SMOKING: NO SMOKING Nothing Inside Vagina: No Douching, No Belle, No Tampons Diet Discharge Diet: No Restrictions Symptoms to Report to : Bleeding Excessive, Pain Increased, Fever Over 101 Degrees F, Vaginal Bleeding Increase, Questions/Concerns For Any Problems or Questions: Contact Your Physician Skin/Wound Care Infection Signs and Symptoms: Increased Redness, Foul Odor of Wound, Increased Drainage, Skin Itchy or Has a Rash, Increased Swelling, Temperature Above 101 F Operative Area Clean and Dry: Keep Incision Clean/Dry Stitches/Niyah/Dermabond: Dermabond, Care of Stitches Bathing Instructions: LUKE Adamson DO Dec 21, 2018 19:44
[2018-12-21] MEDS ORDERED: ONDANSETRON 4 MG/2 ML (SDV) Z0FRAN IVP PRN (19:45)
[2018-12-21] MEDS ORDERED: MEASLES,MUMPS,RUBELLA 1 EA INJ SC SCH (19:45)
[2018-12-21] MEDS ORDERED: TETANUS,DIPTH,PERTUSS P/F (BOOSTRIX) 0.5 ML VIAL IM SCH (19:45)
[2018-12-21] MEDS ORDERED: ACHD5005 PO (19:46)
[2018-12-21] MEDS ORDERED: IBUP-844 PO (19:46)
[2018-12-21] MEDS ORDERED: DOCU100C37 PO (19:46)
[2018-12-21] MEDS ORDERED: BUPIVACAINE 0.5% 30 ML (SENSORCAINE) VIAL ONE (19:47)
[2018-12-21] MEDS ORDERED: ONDANSETRON 4 MG/2 ML (SDV) Z0FRAN IV PRN (22:00)
[2018-12-21] MEDS ORDERED: diphenhydrAMINE 50 MG/ML INJ (BENADRYL) IV PRN (22:00)
[2018-12-21] MEDS ORDERED: NALOXONE 0.4 MG/ML 1 ML (NARCAN) VIAL IV PRN (22:00)
[2018-12-21] MEDS ORDERED: CATHETER FLUSH 10 ML SYR IV SCH (22:00)
--- NOTE | 2018-12-21 23:05 | OPERATIVE REPORT ---
DATE OF SERVICE: PREOPERATIVE DIAGNOSES: 1. A 23-year-old G2, P1 at 39 weeks gestation. 2. Previous section. POSTOPERATIVE DIAGNOSES: 1. A 23-year-old G2, P1 at 39 weeks gestation. 2. Previous section. PROCEDURE: Repeat low transverse section. SURGEON: Booker Rocha DO MALL PLANT CARETAKER: Ana Lilia Guido DNP who was necessary for retraction and manipulation throughout the case. ANESTHESIA: Spinal. ESTIMATED BLOOD LOSS: 300 mL. URINE OUTPUT: 200 mL clear at the end of the procedure. FLUIDS: 1000 mL lactated Ringer solution. FINDINGS: Live female , weight pending. Apgars of 8 and 9. Grossly normal appearing uterus, bilateral fallopian tubes and ovaries. SPECIMEN SENT: Placenta. INDICATIONS FOR PROCEDURE: This 23-year-old female who was scheduled for repeat section tomorrow morning, came in today with complaint of contractions. There was noted contractions every 6 to 10 minutes with cervical exam revealing a 3 cm dilated cervix with some bloody show. There is also some heart rate decelerations noted initially on admission; however, those subsided. heart rate tracing was reassuring. However, due to her being 39 weeks and a previous section, I discussed with the patient proceeding with delivery today rather than tomorrow. Risks of the procedure had already been reviewed with the patient and her care; however, we reviewed once more including risk of bleeding, infection, damage to surrounding structures including but not limited to bowel, bladder, ureter, kidneys, possible need for reoperation, postoperative complications, risk from anesthesia, possible need for blood transfusion and even . After everything was discussed with the patient in detail, consent was obtained in the preoperative area. The patient was taken to the operating room. OPERATIVE REPORT IN DETAIL: Once in the operating room, spinal analgesia was found to be adequate, she was placed in supine position with leftward tilt, prepped and draped in normal sterile fashion. A timeout was performed and anesthesia was tested. I then make a Pfannenstiel skin incision through the previously existing scar using knife and carried down to underlying fascia using Bovie cautery. Fascial incision extended laterally using Bovie cautery. Superior aspect of fascial incision was then grasped with Flower clamps, tented up and dissected off the underlying rectus muscles. The inferior aspect of the fascial incision was then grasped with Flower clamps, tented up and dissected off the underlying rectus muscles. Rectus muscle was then dissected down the midline using sharp dissection with Metzenbaum and Lozada scissors, which exposes the peritoneum, which I then entered bluntly and extended using blunt traction. An Jacoby ring retractor was placed within the peritoneal incision, which offers excellent lateral sidewall retraction. I then make a low transverse incision to the vesicouterine peritoneum and bluntly dissected off the vesicouterine peritoneum, creating a bladder flap. I then proceeded with myotomy until membranes were visualized at which point I extended the uterine incision laterally and superiorly using bandage scissors. Amniotomy was performed using an Allis clamp. The infant was found in vertex presentation. With gentle fundal pressure, the 's head was elevated up the incision where it was delivered. The nares and oropharynx were bulb suctioned. Anterior and posterior shoulders were delivered. was then brought to the operative field where the cord was doubly clamped and cut and was handed off to waiting nurses in attendance. Cord blood was collected. Three-vessel cord with intact placenta was delivered spontaneously thereafter. IV Pitocin was initiated to facilitate uterine contractions. Uterine fundus became firm with bimanual massage. The uterus was then exteriorized and cleared of all endometrial clots and debris. I then proceeded with closing the uterine incision using 0 Vicryl suture in running locked fashion. Second layer of imbricating 0 Monocryl was placed. Excellent hemostasis was noted after doing this. I then placed the uterus back within the pelvis and copiously irrigated the pelvis using normal saline. Once again, there was no active bleeding noted from any of my dissection planes. I placed Interceed antiadhesive over my low transverse incision and proceeded with closing the peritoneum using 3-0 Vicryl suture in running fashion. The rectus muscle reapproximated using 3-0 Vicryl suture in interrupted fashion. The fascia was reapproximated using 0 Vicryl suture in running fashion. Subcutaneous tissue was reapproximated using 3-0 plain interrupted subcutaneous stitch and skin reapproximated using 4-0 Monocryl in running subcuticular. Dermabond was applied to incision and sterile dressing using adhesive white tape. The patient tolerated the procedure well and sent to recovery area in stable condition. Lap and sponge counts were correct at the end of the procedure. Instrument count was correct as well. Two grams of Ancef were given preoperatively for infection prophylaxis. Job ID: [id number] DocumentID: [id number] Dictated Date: 12/21/2018 21:20:46 Duct Layer Supervisor Date: 12/21/2018 23:04:33 Dictated By: DO JONATHAN MONTOYA
[2018-12-21] MEDS: KETOROLAC 30 MG/ML VIAL IV SCH (23:48)
[2018-12-22] MEDS: OXYTOCIN/NORMAL SALINE 500 ML IV SCH ×2 (00:24→02:01)
[2018-12-22] MEDS: DOCUSATE SODIUM 100 MG (COLACE) CAP PO SCH ×3 (00:25→20:27)
--- NOTE | 2018-12-22 00:50 | NUR ---
Pt requesting to sleep. Infant to nursery at time. Pt denies needing anything at time.
[2018-12-22] MEDS: IBUPROFEN 600 MG (MOTRIN) TAB PO SCH ×2 (01:57→06:54)
[2018-12-22] MEDS: KETOROLAC 30 MG/ML VIAL IV SCH ×4 (01:57→18:20)
[2018-12-22] MEDS: HYDROcodone/APAP 5 MG/325 MG (LORTAB) TAB PO PRN ×3 (02:43→20:27)
[2018-12-22 05:40] VITALS: BP 117/58
[2018-12-22 06:44] LABS: BASOPHILS % (AUTO) 0 % (0-10); EOSINOPHILS # (AUTO) 0.1 10^3/uL (0.0-0.3); EOSINOPHILS % (AUTO) 1 % (0-10); HEMATOCRIT 29 % (35-52); HEMOGLOBIN 9.2 G/DL (11.5-16.0); LYMPHOCYTES # (AUTO) 2.1 X 10^3 (1.0-4.0); LYMPHOCYTES % (AUTO) 18 % (12-44); MEAN CORPUSCULAR HEMOGLOBIN 28 PG (25-34); MEAN CORPUSCULAR HGB CONC 32 G/DL (32-36); MEAN CORPUSCULAR VOLUME 87 FL (80-99); MEAN PLATELET VOLUME 9.6 FL (7.4-10.4); MONOCYTES % (AUTO) 9 % (0-12); NEUTROPHILS # (AUTO) 8.2 X 10^3 (1.8-7.8); NEUTROPHILS % (AUTO) 72 % (42-75); PLATELET COUNT 169 10^3/uL (130-400); RED CELL DISTRIBUTION WIDTH 16.1 % (10.0-14.5); WHITE BLOOD COUNT 11.4 10^3/uL (4.3-11.0)
--- NOTE | 2018-12-22 07:26 | Postpartum Progress Note ---
Note Note Day # 1 Subjective: Patient is without complaints. Ambulating, voiding. Tolerating a regular diet without nausea or vomiting. Normal lochia. Pain is well controlled with oral pain medications. Objective: Physical Exam: General - Alert and oriented, no apparent distress Abdomen - Soft, appropriately tender to palpation, non-distended, fundus firm at umbilicus Extremities - no edema, negative Lowell's bilaterally Incision- c/d/i Assessment: POD 1 RLTCS Acute blood loss anemia Plan: Routine care. Encourage breast feeding. Encourage ambulation. Ferrous sulfate supplementation. Plan for discharge tomorrow Vitals - Labs Vital Signs - I&O Vital Signs Date Time Temp Pulse Resp B/P (MAP) Pulse Ox O2 Delivery O2 Flow Rate FiO2 12/22/18 05:40 36.7 91 18 117/58 (77) 98 12/21/18 23:25 36.8 77 18 107/62 (77) 100 12/21/18 23:15 Room Air 12/21/18 22:15 Room Air 12/21/18 22:15 36.2 19 114/69 (84) 100 Room Air 12/21/18 22:00 36.1 19 124/89 (101) 99 Room Air 12/21/18 22:00 Room Air 12/21/18 21:45 Room Air 12/21/18 21:45 36.1 14 119/67 (84) 100 Room Air 12/21/18 21:30 Room Air 12/21/18 21:30 36.4 12 114/58 (76) 100 Room Air 12/21/18 20:00 111 18 133/67 (89) Room Air 12/21/18 19:30 36.6 81 18 117/56 (76) Room Air 12/21/18 19:00 75 18 127/63 (84) Room Air 12/21/18 18:30 36.3 69 18 122/70 (87) Room Air 12/21/18 13:30 36.1 18 121/60 (80) Room Air I & O 12/22/18 07:00 Intake Total 1650 ml Output Total 500 ml Balance 1150 ml Labs Laboratory Tests 12/21/18 14:00: Urine Color YELLOW, Urine Clarity CLEAR, Urine pH 7, Urine Specific [place] 1.005L, Urine Protein NEGATIVE, Urine Glucose (UA) NEGATIVE, Urine Ketones NEGATIVE, Urine Nitrite NEGATIVE, Urine Bilirubin NEGATIVE, Urine Urobilinogen NORMAL, Urine Leukocyte Esterase NEGATIVE, Urine RBC (Auto) NEGATIVE, Urine RBC NONE, Urine WBC NONE, Urine Squamous Epithelial Cells 10-25H, Urine Crystals NONE, Urine Bacteria MODERATEH, Urine Casts NONE, Urine Mucus NEGATIVE, Urine Culture Indicated NO 12/21/18 16:52: White Blood Count 10.9, Red Blood Count 3.84L, Hemoglobin 10.7L, Hematocrit 33L, Mean Corpuscular Volume 87, Mean Corpuscular Hemoglobin 28, Mean Corpuscular Hemoglobin Concent 32, Red Cell Distribution Width 16.8H, Platelet Count 213, Mean Platelet Volume 9.6, Neutrophils (%) (Auto) 70, Lymphocytes (%) (Auto) 21, Monocytes (%) (Auto) 8, Eosinophils (%) (Auto) 2, Basophils (%) (Auto) 0, Neutrophils # (Auto) 7.6, Lymphocytes # (Auto) 2.3, Monocytes # (Auto) 0.8, Eosinophils # (Auto) 0.2, Basophils # (Auto) 0.0 12/22/18 06:35: White Blood Count 11.4H, Red Blood Count 3.30L, Hemoglobin 9.2L, Hematocrit 29L, Mean Corpuscular Volume 87, Mean Corpuscular Hemoglobin 28, Mean Corpuscular Hemoglobin Concent 32, Red Cell Distribution Width 16.1H, Platelet Count 169, Mean Platelet Volume 9.6, Neutrophils (%) (Auto) 72, Lymphocytes (%) (Auto) 18, Monocytes (%) (Auto) 9, Eosinophils (%) (Auto) 1, Basophils (%) (Auto) 0, Neutrophils # (Auto) 8.2H, Lymphocytes # (Auto) 2.1, Monocytes # (Auto) 1.0, Eosinophils # (Auto) 0.1, Basophils # (Auto) 0.0 LUKE MAGUIRE DO Dec 22, 2018 07:26
[2018-12-22 08:00] VITALS: BP 97/53
[2018-12-22] MEDS ORDERED: FLU QUADRIvalent (5+ YOA) 2019-2020 (AFLURIA) 0.5 ML IM ONE (08:30)
--- NOTE | 2018-12-22 08:30 | NUR ---
THIS RN INTRODUCES SELF TO PT. PHYSICAL ASSESSMENT COMPLETED. QUESTIONS ANSWERED. DRESSING DC, OPEN TO AIR. CALL LIGHT WITHIN REACH.
[2018-12-22 12:30] VITALS: BP 126/58
[2018-12-22 16:00] VITALS: BP 134/60
--- NOTE | 2018-12-22 18:35 | NUR ---
THIS RN GIVES DR MAGUIRE AN UPDATE ON PT REPORT. PT ABLE TO EAT CRACKERS AND LAY ON SIDE WHICH MAKES HER FEEL BETTER. PT STATES SOON SHE SITS UP, NAUSEA COMES BACK AND IS UNABLE TO STAY SITTING UP. PT STILL REFUSING PHENERGAN. PAIN UNDER CONTROL. PT HAS VOIDED. DR MAGUIRE STATES SHE MAY HAVE A SCOPALOMINE PATCH IF SHE WANTS ONE BUT FEELS THAT THE PHENERGAN WILL HELP HER SLEEP IT OFF AT THIS POINT. Addendum: 12/22/18 at 1840 by ANGELIQUE OSMAN RN INCORRECT ENTRY. WRONG PATIENT.
[2018-12-22 20:20] VITALS: BP 113/75
[2018-12-23 00:15] VITALS: BP 120/69
[2018-12-23] MEDS: IBUPROFEN 600 MG (MOTRIN) TAB PO SCH ×3 (00:17→11:14)
[2018-12-23] MEDS: HYDROcodone/APAP 5 MG/325 MG (LORTAB) TAB PO PRN (03:15)
[2018-12-23 05:10] VITALS: BP 108/66
--- NOTE | 2018-12-23 08:03 | Postpartum Progress Note ---
Note Note Day # 2 Subjective: Patient is without complaints. Ambulating, voiding. Tolerating a regular diet without nausea or vomiting. Normal lochia. Pain is well controlled with oral pain medications. Objective: Physical Exam: General - Alert and oriented, no apparent distress Abdomen - Soft, appropriately tender to palpation, non-distended, fundus firm at umbilicus Extremities - no edema, negative Lowell's bilaterally Incision: c/d/i Assessment: POD 2 RLTCS Acute blood loss anemia Plan: Routine care. Encourage breast feeding. Encourage ambulation. Ferrous sulfate supplementation. Plan for discharge today Vitals - Labs Vital Signs - I&O Vital Signs Date Time Temp Pulse Resp B/P (MAP) Pulse Ox O2 Delivery O2 Flow Rate FiO2 12/23/18 05:10 36.3 78 16 108/66 (80) 98 Room Air 12/23/18 00:15 37.1 88 16 120/69 (86) 99 Room Air 12/22/18 20:20 36.7 90 16 113/75 (88) 98 Room Air 12/22/18 16:00 36.7 99 16 134/60 (84) 97 Room Air 12/22/18 12:30 37.2 98 16 126/58 (80) 97 Room Air I & O 12/23/18 07:00 Intake Total 600 ml Balance 600 ml LUKE MAGUIRE DO Dec 23, 2018 08:03
--- NOTE | 2018-12-23 08:15 | NUR ---
Dr. Rocha to room to see pt. Plan for D/C home today.
--- NOTE | 2018-12-23 08:30 | NUR ---
To room to answer call light. Pt requesting more pads. Pads provided. Pt infant at this time, denies further needs or concerns. No s/s of distress. Will return for assessment.
--- NOTE | 2018-12-23 10:51 | NUR ---
To room for motrin and colace admin, VS. Pt sleeping soundly, is in nsy. Will not wake at this time.
[2018-12-23 11:13] VITALS: BP 112/63
[2018-12-23] MEDS: DOCUSATE SODIUM 100 MG (COLACE) CAP PO SCH (11:14)
[2018-12-23] MEDS ORDERED: FLU QUADRIvalent (5+ YOA) 2019-2020 (AFLURIA) 0.5 ML IM ONE (13:26)
--- NOTE | 2018-12-23 14:20 | NUR ---
DISCHARGE INSTRUCTIONS EXPLAINED TO PT WITH COPY PROVIDED TO PT ALONG WITH PRESCRIPTIONS. PT VERBALIZES UNDERSTANDING OF INSTRUCTIONS AND SIGNS TO VERIFY. PT DENIES QUESTIONS OR CONCERNS AT THIS TIME. NO S/S OF DISTRESS NOTED. ENCOURAGED PT TO CALL WHEN READY FOR DISMISSAL.
--- NOTE | 2018-12-23 14:45 | NUR ---
PT AMBULATES OFF UNIT TO PRIVATE VEHICLE ACCOMPANIED BY RN, FAMILY, AND INFANT. ALL PERSONAL BELONGINGS WITH PT. NO S/S OF DISTRESS NOTED.
== END 2018-12-23 14:45 | disposition home or self-care (01) | DRG 787 ==
LOC: LDRP 13:16 → WSo 13:16 → LDRP 14:25 → WSo 14:25 → LDRP 22:30
PROVIDERS: ADMIT Obstetrics & Gynecology; ATTEND Obstetrics & Gynecology
PROC: 10D00Z1 Extraction of Products of Conception, Low, Open Approach (ICD-10-PCS; principal; 2018-12-21 20:15)
DX: O76 Abnormality in fetal heart rate and rhythm complicating labor and delivery (principal); O34.211 Maternal care for low transverse scar from previous cesarean delivery; O90.81 Anemia of the puerperium; D62 Acute posthemorrhagic anemia; Z3A.39 39 weeks gestation of pregnancy; Z37.0 Single live birth
CPT/HCPCS: 36415; 81000; 83033; 85025; 86850; 86900; 86901; 90707; 94664; 99212

== ENCOUNTER 2019-01-18 15:52 | Emergency (ER) | payer MEDICAID ==
[~2019-01-18] VITALS: Ht 154 cm; Wt 89.0 kg
[~2019-01-18 15:52] MED LIST changes: +IBUP-844 PO
[2019-01-18 16:16] VITALS: BP 105/72
--- NOTE | 2019-01-18 16:21 | ED Integumentary General ---
General Chief Complaint: Skin/Wound Problems Stated Complaint: INCISION PAIN Nursing Triage Note: PT CO ABOUT WOUND ON LOWER ABD, STATES HAS PAIN AND PULLING SENSATIONS DELIVERY ON 12-21 Source: patient, family Exam Limitations: no limitations History of Present Illness Date Seen by Provider: Jan 18, 2019 Time Seen by Provider: 16:16 Initial Comments This 23-year-old white female presents with a complaint of discomfort in her C- section incision in the lower abdomen. The patient delivered approximately 3 weeks ago and has had no interim problems until the last 24 hours when she has felt a pulling sensation in the incision. Fortunately there is been no bleeding, significant inflammation, or wound discharge. Furthermore there is been no associated dysuria or frequency, fever or chills, nausea or vomiting, diarrhea, or constipation. Allergies and Home Medications Allergies Coded Allergies: No Known Drug Allergies (Unverified , 03/24/18) Home Medications Ibuprofen 600 Mg Tablet, 600 MG PO Q6HR Prescribed by: LUKE MAGUIRE on 12/21/181945 Patient Home Medication List Home Medication List Reviewed: Yes Review of Systems Review of Systems Constitutional: No chills, No fever EENTM: no symptoms reported Respiratory: no symptoms reported Cardiovascular: no symptoms reported Gastrointestinal: see HPI, abdominal pain Genitourinary: no symptoms reported; No dysuria, No frequency Musculoskeletal: no symptoms reported Skin: see HPI, other (patient has a recent incision in the lower abdomen.) Psychiatric/Neurological: No Symptoms Reported Endocrine: No Symptoms Reported Hematologic/Lymphatic: No Symptoms Reported Past Vtywfho-Dhfuoh-Kcczda Hx Past Med/Social Hx: Reviewed Nursing Past Med/Soc Hx Patient Social History Alcohol Use: Denies Use Recreational Drug Use: No Smoking Status: Never a Smoker 2nd Hand Smoke Exposure: No Recent Foreign Travel: No Contact w/Someone Who Travel: No Recent Infectious Disease Expo: No Recent Hopitalizations: No Physical Abuse: No Sexual Abuse: No Immunizations Up To Date Tetanus Booster (TDap): Unknown Date of Influenza Vaccine: Dec 05, 2016 Seasonal Allergies Seasonal Allergies: No Past Medical History Surgeries: Yes (ERCP) Section, Gallbladder Respiratory: No Cardiac: No Neurological: No : No Reproductive Disorders: No Female Reproductive Disorders: Denies Sexually Transmitted Disease: No HIV/AIDS: No Genitourinary: No Gastrointestinal: No Gastroesophageal Reflux, Gall Bladder Disease Musculoskeletal: No Endocrine: No HEENT: No Cancer: No Psychosocial: No Integumentary: No Blood Disorders: No Family Medical History Asthma G8 BROTHER Diabetes mellitus (GRANDMOTHER) Diabetes Physical Exam Vital Signs Vital Signs - First Documented 01/18/19 15:55 Temp 36.9 Pulse 90 Resp 18 B/P (MAP) 105/72 (83) Pulse Ox 98 Capillary Refill : Less Than 3 Seconds General Appearance: WD/WN, no apparent distress HEENT: normal ENT inspection Neck: normal inspection Cardiovascular: regular rate, rhythm Respiratory: lungs clear Gastrointestinal: non tender, tenderness (there is slight tenderness along the course of the Pfannenstiel incision in the lower abdomen. 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 I asked that the patient follow-up with her manager fashion tomorrow. I invited her to return to department if any further problems or questions. Departure Impression Primary Impression: Incisional pain Disposition: 01 HOME, SELF-CARE Condition: Unchanged Departure-Patient Inst. Decision time for Depature: 16:22 Referrals: LUKE MAGUIRE DO (PCP) Primary Care Physician MALGORZATA GROSSMAN MD (Family) Primary Care Physician Patient Instructions: Postoperative Pain (DC) Add. Discharge Instructions: Follow-up Dr. MAGUIRE by calling the office tomorrow. Come back for any problems or questions. Tylenol for pain. All discharge instructions reviewed with patient and/or family. Voiced understanding. DELLA FLEMING MD Jan 18, 2019 16:21 POS
== END 2019-01-18 16:35 | disposition home or self-care (01) ==
LOC: EDUNIT# 15:52 → ER 15:53
DX: G89.18 Other acute postprocedural pain (principal); O99.63 Diseases of the digestive system complicating the puerperium; K21.9 Gastro-esophageal reflux disease without esophagitis
CPT/HCPCS: 99282

== ENCOUNTER 2020-04-15 12:15 | Emergency (ER) | payer MEDICAID ==
[~2020-04-15] VITALS: Ht 152 cm; Wt 86.0 kg
[2020-04-15] MEDS ORDERED: NS IV 1000 ML 1,000 ML ONE (12:36)
--- NOTE | 2020-04-15 12:41 | ED GU-Female ---
General Chief Complaint: - Urinary Stated Complaint: POSSIBLE UTI, L SIDED PAIN Nursing Triage Note: PT PRESENTS TO ED VIA POV FROM HOME FOR COMPLAINTS OF BURING WITH URINATION AND L SIDED PAIN X 3 DAYS. Nursing Sepsis Screen: No Definite Risk Source: patient Exam Limitations: no limitations History of Present Illness Date Seen by Provider: Apr 15, 2020 Time Seen by Provider: 12:39 Initial Comments To ER private vehicle from home with burning on urination for 3 days as well as left flank pain. No nausea vomiting or fevers. She had some blood on the toilet paper after wiping after urination. That has subsequently resolved. Timing/Duration: constant Severity/Quality: moderate Location: left flank Radiation: none Activities at Onset: none Prior Genitourinary Problems: none Associated Symptoms: dysuria Allergies and Home Medications Allergies Coded Allergies: No Known Drug Allergies (Unverified , 03/24/18) Home Medications Ibuprofen 600 Mg Tablet, 600 MG PO Q6HR Prescribed by: LUKE MAGUIRE on 12/21/181945 Patient Home Medication List Home Medication List Reviewed: Yes Review of Systems Review of Systems Constitutional: see HPI EENTM: see HPI Respiratory: no symptoms reported Cardiovascular: no symptoms reported Genitourinary: see HPI, dysuria Musculoskeletal: no symptoms reported Skin: no symptoms reported Psychiatric/Neurological: No Symptoms Reported Endocrine: No Symptoms Reported Past Zahvjgs-Ggewvw-Bnhfxe Hx Patient Social History Alcohol Use: Denies Use Smoking Status: Never a Smoker 2nd Hand Smoke Exposure: No Recent Infectious Disease Expo: No Recent Hopitalizations: No Immunizations Up To Date Tetanus Booster (TDap): Unknown Date of Influenza Vaccine: Dec 05, 2016 Seasonal Allergies Seasonal Allergies: No Past Medical History Surgeries: Yes (ERCP) Section, Gallbladder Respiratory: No Cardiac: No Neurological: No Reproductive Disorders: No Female Reproductive Disorders: Denies Sexually Transmitted Disease: No HIV/AIDS: No Genitourinary: No Gastrointestinal: No Gastroesophageal Reflux, Gall Bladder Disease Musculoskeletal: No Endocrine: No HEENT: No Cancer: No Psychosocial: No Integumentary: No Blood Disorders: No Family Medical History Asthma G8 BROTHER Diabetes mellitus (GRANDMOTHER) Diabetes Physical Exam Vital Signs Vital Signs - First Documented 04/15/20 12:30 Temp 37.6 Pulse 137 Resp 18 B/P (MAP) 131/93 (106) Pulse Ox 97 Capillary Refill : Less Than 3 Seconds Height, Weight, BMI Height: 5'0.00" Weight: 204lbs. 2.0oz. [id number]; 37.00 BMI Method:Stated General Appearance: WD/WN, no apparent distress Neck: non-tender, full range of motion Cardiovascular: no murmur, tachycardia Respiratory: normal breath sounds, no respiratory distress, no accessory muscle use Gastrointestinal: normal bowel sounds, non tender, soft Back: CVA tenderness (L) Neurologic/Psychiatric: alert, normal mood/affect, oriented x 3 Skin: normal color, warm/dry Progress/Results/Core Measures Suspected Sepsis Recent Fever Within 48 Hours: No Infection Criteria Present: Suspected New Infection New/Unexplained Altered Menta: No Sepsis Screen: No Definite Risk SIRS Temperature: Pulse: 137 Respiratory Rate: 18 Laboratory Tests 04/15/20 12:48: White Blood Count 10.6 Blood Pressure 131 /93 Mean: 106 Laboratory Tests 04/15/20 12:48: Platelet Count 183 Results/Orders Lab Results Laboratory Tests Test 04/15/20 12:22 04/15/20 12:48 Range/Units Urine Color YELLOW Urine Clarity CLOUDY Urine pH 6.0 5-9 Urine Specific [place] 1.025 H 1.016-1.022 Urine Protein 1+ H NEGATIVE Urine Glucose (UA) NEGATIVE NEGATIVE Urine Ketones NEGATIVE NEGATIVE Urine Nitrite NEGATIVE NEGATIVE Urine Bilirubin NEGATIVE NEGATIVE Urine Urobilinogen 0.2 < = 1.0 MG/DL Urine Leukocyte Esterase 3+ H NEGATIVE Urine RBC (Auto) 3+ H NEGATIVE Urine RBC 10-25 H /HPF Urine WBC TNTC H /HPF Urine Squamous Epithelial Cells 25-50 H /HPF Urine Crystals NONE /LPF Urine Bacteria MODERATE H /HPF Urine Casts NONE /LPF Urine Mucus NEGATIVE /LPF Urine Culture Indicated YES Urine Test NEGATIVE NEGATIVE White Blood Count 10.6 4.3-11.0 10^3/uL Red Blood Count 4.70 3.80-5.11 10^6/uL Hemoglobin 14.8 11.5-16.0 g/dL Hematocrit 44 35-52 % Mean Corpuscular Volume 93 80-99 fL Mean Corpuscular Hemoglobin 32 25-34 pg Mean Corpuscular Hemoglobin Concent 34 32-36 g/dL Red Cell Distribution Width 12.3 10.0-14.5 % Platelet Count 183 130-400 10^3/uL Mean Platelet Volume 9.9 9.0-12.2 fL Immature Granulocyte % (Auto) 0 % Neutrophils (%) (Auto) 75 42-75 % Lymphocytes (%) (Auto) 15 12-44 % Monocytes (%) (Auto) 10 0-12 % Eosinophils (%) (Auto) 0 0-10 % Basophils (%) (Auto) 0 0-10 % Neutrophils # (Auto) 8.0 H 1.8-7.8 10^3/uL Lymphocytes # (Auto) 1.6 1.0-4.0 10^3/uL Monocytes # (Auto) 1.0 0.0-1.0 10^3/uL Eosinophils # (Auto) 0.0 0.0-0.3 10^3/uL Basophils # (Auto) 0.0 0.0-0.1 10^3/uL Immature Granulocyte # (Auto) 0.0 0.0-0.1 10^3/uL My Orders Orders - MAX BILLINGS APRN Ua Culture If Indicated (04/15/20 12:19) Hcg,Qualitative Urine (04/15/20 12:19) Cbc With Automated Diff (04/15/20 12:39) Comprehensive Metabolic Panel (04/15/20 12:39) Ed Iv/Invasive Line Start (04/15/20 12:39) Ns Iv 1000 Ml (Sodium Chloride 0.9%) (04/15/20 12:45) Ns Iv 1000 Ml (Sodium Chloride 0.9%) (04/15/20 12:36) Urine Culture (04/15/20 12:22) Vital Signs/I&O 04/15/20 12:30 Temp 37.6 Pulse 137 Resp 18 B/P (MAP) 131/93 (106) Pulse Ox 97 Capillary Refill : Less Than 3 Seconds Blood Pressure Mean: 106 Departure Communication (Admissions) She is tachycardic at 136. She has left flank tenderness to palpation. We will start an IV check some labs give her some fluids. Impression Primary Impression: Urinary tract infection Qualified Codes: N30.01 - Acute cystitis with hematuria Disposition: HOME, SELF-CARE Condition: Stable Departure-Patient Inst. Decision time for Depature: 13:06 Referrals: NO,LOCAL PHYSICIAN (PCP/Family) Primary Care Physician Patient Instructions: Urinary Tract Infection, Adult (DC) Add. Discharge Instructions: . Antibiotics as directed. Take the Pyridium as directed for pain. This will turn your urine a orange is red color do not let this alarm you. Return to ER for any fevers or worsening symptoms. All discharge instructions reviewed with patient and/or family. Voiced understanding. Scripts Phenazopyridine HCl (Pyridium) 200 Mg Tablet 1 TAB PO TID, #6 TAB Prov: MAX BILLINGS APRN 04/15/20 Cefuroxime Axetil (Cefuroxime) 250 Mg Tablet 250 MG PO BID, #10 TAB Prov: MAX BILLINGS APRN 04/15/20 Work/School Note: Work Release Form Date Seen in the Emergency Department: Apr 15, 2020 Return to Work: Apr 16, 2020 MAX BILLINGS APRN Apr 15, 2020 12:41
[2020-04-15] MEDS ORDERED: NS IV 1000 ML 1,000 ML IV SCH (12:45)
[2020-04-15 12:50] LABS: BILIRUBIN,URINE NEGATIVE (NEGATIVE); CLARITY,URINE CLOUDY; COLOR,URINE YELLOW; GLUCOSE, URINE (UA) NEGATIVE (NEGATIVE); KETONES,URINE NEGATIVE (NEGATIVE); LEUKOCYTE ESTERASE ,URINE 3+ (NEGATIVE); NITRITE,URINE NEGATIVE (NEGATIVE); PROTEIN,URINE 1+ (NEGATIVE)
[2020-04-15 12:54] LABS: BASOPHILS % (AUTO) 0 % (0-10); EOSINOPHILS % (AUTO) 0 % (0-10); HEMATOCRIT 44 % (35-52); HEMOGLOBIN 14.8 g/dL (11.5-16.0); LYMPHOCYTES # (AUTO) 1.6 10^3/uL (1.0-4.0); LYMPHOCYTES % (AUTO) 15 % (12-44); MEAN CORPUSCULAR HEMOGLOBIN 32 pg (25-34); MEAN CORPUSCULAR HGB CONC 34 g/dL (32-36); MEAN CORPUSCULAR VOLUME 93 fL (80-99); MEAN PLATELET VOLUME 9.9 fL (9.0-12.2); MONOCYTES % (AUTO) 10 % (0-12); NEUTROPHILS % (AUTO) 75 % (42-75); PLATELET COUNT 183 10^3/uL (130-400); WHITE BLOOD COUNT 10.6 10^3/uL (4.3-11.0)
[2020-04-15 12:59] LABS: BACTERIA,URINE MODERATE /HPF; SQUAMOUS EPITHELIAL CELL,UR 25-50 /HPF; WBC,URINE TNTC /HPF
[2020-04-15] MEDS ORDERED: CEFU250T80 PO (13:07)
[2020-04-15] MEDS ORDERED: PHEN-640 PO (13:07)
[2020-04-15 13:13] LABS: ALBUMIN 4.2 GM/DL (3.2-4.5); CHLORIDE 105 MMOL/L (98-107); POTASSIUM 3.7 MMOL/L (3.6-5.0); SODIUM 137 MMOL/L (135-145)
[2020-04-15 13:14] LABS: CALCIUM 9.2 MG/DL (8.5-10.1)
[2020-04-15 13:15] LABS: GLUCOSE 112 MG/DL (70-105); TOTAL PROTEIN 7.8 GM/DL (6.4-8.2)
[2020-04-15] MEDS ORDERED: cefTRIAXone FOR IV USE 1,000 MG in WATER (STERILE) FOR INJECTION 10 ML IV ONE (13:15)
[2020-04-15] MEDS ORDERED: ONDANSETRON 4 MG/2 ML (SDV) Z0FRAN IVP ONE (13:15)
[2020-04-15 13:16] LABS: CARBON DIOXIDE 22 MMOL/L (21-32)
[2020-04-15 13:17] LABS: BILIRUBIN,TOTAL 0.6 MG/DL (0.1-1.0)
[2020-04-15 13:19] LABS: ALKALINE PHOSPHATASE 59 U/L (40-136); CREATININE SERUM 0.94 MG/DL (0.60-1.30); GFR ESTIMATED > 60
[2020-04-15 13:20] LABS: BUN/CREATININE RATIO 10
[2020-04-15 13:22] LABS: ALANINE AMINOTRANSFERASE 36 U/L (0-55)
[2020-04-15 13:37] VITALS: BP 123/71
== END 2020-04-15 13:36 | disposition home or self-care (01) ==
LOC: EDUNIT# 12:15 → ER 12:17
DX: N39.0 Urinary tract infection, site not specified (principal); Z83.3 Family history of diabetes mellitus
CPT/HCPCS: 36415; 80053; 81000; 84703; 85025; 87077; 87088; 87186

== ENCOUNTER → 2022-04-13 | Outpatient (CLI) | payer MEDICAID ==
[~2022-04-13] MED LIST changes: +CEFU250T80 PO; +CYCL10TA25 PO; -CYCL10TA9 PO; +PHEN-640 PO; -SULF1TAB35 PO; +SULF1TAB38 PO
--- NOTE | 2022-04-13 17:39 | Diagnostic Imaging Report ---
INDICATION: survey. Elevated AFP. TECHNIQUE: Multiple real-time grayscale images were obtained over the gravid uterus. COMPARISON: None for this current gestation. FINDINGS: The cervix is closed. Cervical length measurement is 5.4 cm. The tip of the placenta is 6 cm above the cervical os and located anteriorly. The visualized intracranial contents unremarkable. There is no ventriculomegaly. Cerebellum measures appropriate for gestational age. Four-chamber view of the heart is normal. There is no hydronephrosis or pelvocaliectasis. Stomach bubble and bladder are present. There is a normal cord insertion. Amniotic fluid volume is measured at 16.4 cm. cardiac motion measured 152 bpm. Today's biometric measurements correspond to an estimated gestational age of 20 weeks 1 day. Estimated weight 343 g. IMPRESSION: 1. Unremarkable anatomic survey. 2. Appropriate amniotic fluid volume and cardiac motion. 3. Biometric measurements correlate to an estimated gestational age of 20 weeks 1 day with estimated weight 343 g. Biometrical measurements are as follows: Biparietal 4.53 cm, age 19 weeks 5 days. Head circumference 16.97 cm, age 19 weeks 5 days. Abdominal circumference 15.18 cm, age 20 weeks 3 days. Femur length 3.31 cm, age 20 weeks 3 days. Sonographic estimate age: 20 weeks 1 days. Sonographic estimated date of delivery: 08/30/2022. Estimated Weight: 343 gm (+/- 51 gm). LMP percentile: 14%. heart rate: 152 beats per minute. number: 1 of 1. Dictated by: Dictated on workstation # [id number]
== END ==
LOC: RAD 14:09
PROVIDERS: ATTEND Obstetrics & Gynecology
DX: Z36.1 Encounter for antenatal screening for raised alphafetoprotein level (principal)
CPT/HCPCS: 76805

== ENCOUNTER 2022-07-20 06:27 | Inpatient (IN) | payer SELFPAY ==
[~2022-07-20] VITALS: Ht 156.5 cm; Wt 98.1 kg
[2022-07-20] VITALS (7 sets, daily range): BP systolic 108–129; BP diastolic 67–85
[2022-07-20] MEDS ORDERED: ceFAZolin INJECTION 2,000 MG in NS (IVPB) 50 ML IV ONE (07:30)
[2022-07-20] MEDS ORDERED: METOCLOPRAMIDE INJ 10 MG/2 ML (REGLAN) ONE (08:06)
[2022-07-20] MEDS ORDERED: FAMOTIDINE 20MG/2ML IV (PEPCID) ONE (08:06)
[2022-07-20] MEDS ORDERED: CITRIC ACID/SOB CIT (BICITRA) 30 ML UDC ONE (08:06)
--- NOTE | 2022-07-20 08:24 | History & Physical-OB ---
OB - Chief Complaint & HPI Date/Time Date of Admission: Date of Admission: July 20, 2022 at 06:53 Date seen by a Provider: July 20, 2022 Time Seen by a Provider: 08:30 Chief Complaint/History OB-Reason for Admission/Chief: Section Hx : 3 Hx Para: 2 Expected Date of Delivery: Aug 24, 2022 Gestational Age in Weeks: 35 Gestational Age in Days: 0 Indication for : desires repeat Admission Nurse Assessment Rev: Yes History of Labs A neg Antibody RI RPR NR HBsAg NR HIV NR GC neg GBS unknown Allergies and Home Medications Allergies Coded Allergies: No Known Drug Allergies (Unverified , 03/24/18) Patient Home Medication List Home Medication List Reviewed: Yes Cefuroxime Axetil (Cefuroxime) 250 Mg Tablet, 250 MG PO BID Prescribed by: MAX BILLINGS on 04/15/20 1307 Ibuprofen (Ibu) 600 Mg Tablet, 600 MG PO Q6HR Prescribed by: LUKE MAGUIRE on 12/21/18 194 Phenazopyridine HCl (Pyridium) 200 Mg Tablet, 1 TAB PO TID Prescribed by: MAX BILLINGS on 04/15/20 1307 OB - History Hx of Present Care: Yes Ultrasounds: Normal mid trimester US Obstetrical Complications: None Medical Complications: Cardiovascular Delivery History Hx Blood Disorders: No Patient Past Medical History PMHx: Denies PSurgHx: x2 Lap Caitlin Social History/Family History 2nd Hand Smoke Exposure: No Immunizations Tetanus Booster (TDap): Unknown OB - Admission Exam Physical Exam Vitals: Vital Signs 07/20/22 06:37 Temp 36.4 Pulse 86 Resp 20 Pulse Ox 98 O2 Delivery Room Air HEENT: NCAT Heart: Rhythm Normal Lungs: Clear Abdomen: Gravid Extremities: Normal Reflexes: Normal Membranes: Ruptured Heart Rate: 130's Accelerations: Accelerations Present Decelerations: No Decelerations Short Term Variability: Present Radio Antenna Installer Variability: Average (6-25) Contractions on Admission: 6-10 Minutes Apart Intensity: Mild Labs Laboratory Tests Test 07/20/22 06:30 07/20/22 07:40 Range/Units Membranes Rupture POSITIVE OB - Assessment/Plan/Diagnosis Assessment Assessment: section, labor, rupture of membranes Admission Dx 26 yo @ 35.0 Previous x 2 PROM labor GBS unknown Admission Status: Inpatient Order (span 2 midnights) Reason for Inpatient Admission: RCS- @ 35weeks Plan Plan: Section LUKE MAGUIRE DO July 20, 2022 08:24
[2022-07-20 08:27] LABS: BASOPHILS # (AUTO) 0.1 10^3/uL (0.0-0.1); BASOPHILS % (AUTO) 1 % (0-10); EOSINOPHILS # (AUTO) 0.3 10^3/uL (0.0-0.3); EOSINOPHILS % (AUTO) 2 % (0-10); HEMATOCRIT 34 % (35-52); HEMOGLOBIN 11.6 g/dL (11.5-16.0); LYMPHOCYTES # (AUTO) 2.6 10^3/uL (1.0-4.0); LYMPHOCYTES % (AUTO) 25 % (12-44); MEAN CORPUSCULAR HEMOGLOBIN 31 pg (25-34); MEAN CORPUSCULAR HGB CONC 34 g/dL (32-36); MEAN CORPUSCULAR VOLUME 92 fL (80-99); MEAN PLATELET VOLUME 9.7 fL (9.0-12.2); MONOCYTES # (AUTO) 0.8 10^3/uL (0.0-1.0); MONOCYTES % (AUTO) 8 % (0-12); NEUTROPHILS # (AUTO) 6.6 10^3/uL (1.8-7.8); NEUTROPHILS % (AUTO) 63 % (42-75); PLATELET COUNT 178 10^3/uL (130-400); WHITE BLOOD COUNT 10.4 10^3/uL (4.3-11.0)
[2022-07-20] MEDS ORDERED: CATHETER FLUSH 10 ML SYR IV PRN (08:30)
[2022-07-20] MEDS ORDERED: FAMOTIDINE 20MG/2ML IV (PEPCID) IV ONE (08:30)
[2022-07-20] MEDS ORDERED: METOCLOPRAMIDE INJ 10 MG/2 ML (REGLAN) IV ONE (08:30)
[2022-07-20] MEDS ORDERED: CITRIC ACID/SOB CIT (BICITRA) 30 ML UDC PO ONE (08:30)
[2022-07-20] MEDS: LACTATED RINGERS 1,000 ML IV PRN ×2 (08:37→11:03)
[2022-07-20] MEDS ORDERED: KETOROLAC 30 MG/ML VIAL ONE (09:19)
[2022-07-20] MEDS ORDERED: ONDANSETRON 4 MG/2 ML (SDV) Z0FRAN ONE (09:19)
[2022-07-20] MEDS ORDERED: fentaNYL INJ 100 MCG/2 ML AMP ONE (09:19)
[2022-07-20] MEDS ORDERED: OXYTOCIN PRE-MIX DRIP 1,000 ML IV ONE (09:19)
[2022-07-20] MEDS ORDERED: AZITHROMYCIN INJECTION 500 MG/5 ML VIAL ONE (09:48)
[2022-07-20] MEDS ORDERED: NS (IVPB) 100 ML ONE (09:50)
[2022-07-20] MEDS ORDERED: NS (IVPB) 0 ML ONE (09:50)
[2022-07-20] MEDS ORDERED: BUPIVACAINE 0.25% 10 ML (SENSORCAINE) VIAL ONE (10:18)
[2022-07-20] MEDS ORDERED: NALOXONE 0.4 MG/ML 1 ML (NARCAN) VIAL IV PRN (10:30)
[2022-07-20] MEDS ORDERED: TETANUS,DIPTH,PERTUSS P/F (BOOSTRIX) 0.5 ML VIAL IM SCH (10:30)
[2022-07-20] MEDS ORDERED: MEASLES,MUMPS,RUBELLA 1 EA INJ SC SCH (10:30)
--- NOTE | 2022-07-20 10:38 | Cesarean Section Operative ---
Procedure Procedure Note Pre-operative Diagnosis: Roro may (26 /Para 3 / 2,Gestational Age (wks)35 with PROM previous LTCS x2 Post-operative Diagnosis: same + liveborn female Procedure: Repeat low transverse section Physician: ARMAND PORTILLO Licensed Psychologist Manager: Leah Del Toro RN COMMUNICATIONS PROJECT MANAGER Estimated blood loss: 300 mL Disposition: Stable to RR Findings: Viable Female infant, Apgars8/8, weight 5#1oz, intact placenta, 3vc, normal appearing uterus, tubes, and ovaries. Indications:Roro may (26 /Para 3 / 2,Gestational Age (wks)35 presenting forPROM. Procedure Details: The patient was seen in pre-op and the procedure was discussed with the patient in full, including the risks, benefits, and alternatives. All questions were answered. The patient was taken to the operating room and a time out was performed, verifying patient and procedure. After spinal anesthesia was placed by our anesthesia colleagues, the patient was placed in the dorsal supine with leftward tilt for uterine displacement.~ Her abdomen was then prepped and draped in the typical sterile fashion. A Pfannenstiel skin incision was made using a scalpel and carried down through the underlying fascia. The fascia was incised in the midline and tented up using Flower clamps. On both the inferior and superior fascia side the rectus muscle was dissected off bluntly and sharply using Lozada scissors. The peritoneum was identified and entered bluntly in the midline. This was then stretched laterally using manual strength. After entering the abdominal cavity and confirming lack of intraperitoneal adhesions, a large Jacoby retractor was placed and the lower uterine segment was visualized. A bladder flap was created with the use of Metzenbaum scissors.~ A scalpel was utilized to make a low transverse uterine incision. Amniotomy was performed with an Allis clamp with return of clear fluid. The infant's head was grasped and brought to the level of the incision. Fundal pressure was applied and was delivered without difficulty. Mouth and nares were suctioned with bulb suction. After the umbilical cord was clamped and cut, the infant was handed off to the pediatric staff. A sample of cord blood was then obtained. The placenta was delivered intact via uterine massage. The uterus was cleared of all clots and debris. The uterine incision was closed using 0 Vicryl in a r unning locked fashion. A second imbricated layer was placed using 0 Vicryl in a running fashion as well. The hysterotomy site was examined and hemostasis was observed. The bilateral tubes and ovaries appeared normal. The uterus was placed back into the abdominal cavity and abdominal gutters were cleared of all clots and debris. A final check of the uterine incision showed it to be hemostatic. The peritoneum was closed using 0 Vicryl in a running fashion. The rectus abdominus was reappraximated with 0-Vicryl. The fascia was closed with 1-Vicryl in a running fashion. The subcutaneous space was hemostatic, and irrigated. The subcutaneous space undermined and was closed with 2-0 Vicryl in a running fashion. The skin was then closed using 4-0 Monocryl in a running subcuticular fashion. The skin edges were reapproximated together and were hemostatic. Skin adhesive was applied. All sponge, lap and needle counts were correct x3 at the end of the procedure per nursing. Vitals - Labs Vital Signs - I&O Vital Signs Date Time Temp Pulse Resp B/P (MAP) Pulse Ox O2 Delivery O2 Flow Rate FiO2 07/20/22 06:37 36.4 86 20 98 Room Air Labs Laboratory Tests 07/20/22 06:30: Membranes Rupture POSITIVE 07/20/22 07:40: White Blood Count 10.4, Red Blood Count 3.71L, Hemoglobin 11.6, Hematocrit 34L, Mean Corpuscular Volume 92, Mean Corpuscular Hemoglobin 31, Mean Corpuscular H emoglobin Concent 34, Red Cell Distribution Width 13.9, Platelet Count 178, Mean Platelet Volume 9.7, Immature Granulocyte % (Auto) 1, Neutrophils (%) (Auto) 63, Lymphocytes (%) (Auto) 25, Monocytes (%) (Auto) 8, Eosinophils (%) (Auto) 2, Basophils (%) (Auto) 1, Neutrophils # (Auto) 6.6, Lymphocytes # (Auto) 2.6, Monocytes # (Auto) 0.8, Eosinophils # (Auto) 0.3, Basophils # (Auto) 0.1, Immature Granulocyte # (Auto) 0.1, Syphilis Total Antibody Negative ARMAND PORTILLO DO July 20, 2022 10:38
[2022-07-20] MEDS: OXYTOCIN PRE-MIX DRIP 500 ML IV SCH ×2 (10:46→14:43)
[2022-07-20] MEDS ORDERED: CATHETER FLUSH 10 ML SYR IV SCH (14:00)
[2022-07-20] MEDS: HYDROcodone/APAP 5 MG/325 MG (LORTAB) TAB PO PRN ×2 (14:13→21:28)
[2022-07-20] MEDS: KETOROLAC 15 MG/ML VIAL IV SCH (17:50)
[2022-07-20] MEDS ORDERED: DOCUSATE SODIUM 100 MG (COLACE) CAP PO SCH (21:00)
[2022-07-21] MEDS: KETOROLAC 15 MG/ML VIAL IV SCH ×2 (00:10→05:55)
[2022-07-21 02:11] VITALS: BP 103/67
[2022-07-21 05:55] LABS: BASOPHILS # (AUTO) 0.1 10^3/uL (0.0-0.1); BASOPHILS % (AUTO) 0 % (0-10); EOSINOPHILS # (AUTO) 0.2 10^3/uL (0.0-0.3); EOSINOPHILS % (AUTO) 2 % (0-10); HEMATOCRIT 33 % (35-52); HEMOGLOBIN 11.2 g/dL (11.5-16.0); LYMPHOCYTES # (AUTO) 2.8 10^3/uL (1.0-4.0); LYMPHOCYTES % (AUTO) 23 % (12-44); MEAN CORPUSCULAR HEMOGLOBIN 31 pg (25-34); MEAN CORPUSCULAR HGB CONC 34 g/dL (32-36); MEAN CORPUSCULAR VOLUME 92 fL (80-99); MONOCYTES # (AUTO) 1.1 10^3/uL (0.0-1.0); MONOCYTES % (AUTO) 9 % (0-12); NEUTROPHILS # (AUTO) 7.6 10^3/uL (1.8-7.8); NEUTROPHILS % (AUTO) 64 % (42-75); PLATELET COUNT 185 10^3/uL (130-400); WHITE BLOOD COUNT 11.8 10^3/uL (4.3-11.0)
[2022-07-21 05:59] VITALS: BP 131/83
[2022-07-21] MEDS: HYDROcodone/APAP 5 MG/325 MG (LORTAB) TAB PO PRN ×2 (05:59→11:36)
[2022-07-21] MEDS ORDERED: RHO(D) IMMUNE GLOBULIN 300 MCG/2 ML SYRINGE IM/IV ONE (08:00)
[2022-07-21 10:03] VITALS: BP 137/77
[2022-07-21] MEDS ORDERED: IBUPROFEN 800 MG (MOTRIN) TAB PO SCH (10:30)
[2022-07-21] MEDS ORDERED: ACHD5005 PO (11:06)
[2022-07-21] MEDS ORDERED: DOCU100C37 PO (11:06)
--- NOTE | 2022-07-21 11:13 | Short Stay Summary ---
Discharge Summary Hospital Course Was the Problem List Reviewed?: Yes Final Diagnosis: section delivered Hospital Course Date of Admission: July 20, 2022 at 06:53 Admission Diagnosis : Family Physician/Provider: No,Local Physician Date of Discharge: 07/21/22 Discharge Diagnosis: [ ] Hospital Course: [ ] Labs and Pending Lab Test: Laboratory Tests 07/21/22 05:25: White Blood Count 11.8H, Red Blood Count 3.58L, Hemoglobin 11.2L, Hematocrit 33L , Mean Corpuscular Volume 92, Mean Corpuscular Hemoglobin 31, Mean Corpuscular Hemoglobin Concent 34, Red Cell Distribution Width 14.2, Platelet Count 185, Mean Platelet Volume 10.0, Immature Granulocyte % (Auto) 1, Neutrophils (%) (Auto) 64, Lymphocytes (%) (Auto) 23, Monocytes (%) (Auto) 9, Eosinophils (%) ( Auto) 2, Basophils (%) (Auto) 0, Neutrophils # (Auto) 7.6, Lymphocytes # (Auto) 2.8, Monocytes # (Auto) 1.1H, Eosinophils # (Auto) 0.2, Basophils # (Auto) 0.1, Immature Granulocyte # (Auto) 0.1 Home Meds Active Docusate Sodium 100 Mg Capsule 100 Mg PO BID 14 Days take 1 tablet by mouth every 12hrs Pyridium (Phenazopyridine HCl) 200 Mg Tablet 1 Tab PO TID Cefuroxime (Cefuroxime Axetil) 250 Mg Tablet 250 Mg PO BID Ibu (Ibuprofen) 600 Mg Tablet 600 Mg PO Q6HR Assessment/Pt Instructions DC to home DC instructions: Call if increase pain , vaginal bleeding or increase temp over 100.4F F/U in 1 week control d/w pt. Discharge Instructions Discharge Diet: Regular Diet Activity as Tolerated: Yes Discharge Physical Examination General Appearance: Alert, Oriented X3 Respiratory: Clear to Auscultation Cardiovascular: Regular Rate Abdominal: Normal Bowel Sounds, Soft Extremities: No Clubbing, No Cyanosis, No Edema Skin: No Rashes, No Breakdown, No Significant Lesion, Other (incision site cl barry dry intact) Neuro: Normal Gait Psych/Mental Status: Mental Status NL Allergies: Coded Allergies: No Known Drug Allergies (Unverified , 03/24/18) Copy Copies To 1: ARMAND PORTILLO DO Discharge Summary Date of Admission July 20, 2022 at 06:53 Date of Discharge Discharge Date: July 21, 2022 Admission Diagnosis section delivered. Consults/Procedures Procedures repeat low transverse section Discharge Diagnosis section delivered. (1) delivery delivered (2) Previous section Clinical Quality Measures DVT/VTE Risk/Contraindication: VTE Addressed: Yes VTE Present on Admission: No RFS Level Per Nursing on Admit: 2=Moderate DVT/VTE Prophylaxis Comfirm.Dx Pharmacological not ordered: Ambulating ARMAND PORTILLO DO July 21, 2022 11:13
--- NOTE | 2022-07-21 11:32 | Short Stay Summary ---
Discharge Summary Hospital Course Was the Problem List Reviewed?: Yes Problems/Dx: (1) delivery delivered (2) Previous section Final Diagnosis: section delivered Hospital Course Date of Admission: July 20, 2022 at 06:53 Admission Diagnosis : Family Physician/Provider: No,Local Physician Date of Discharge: 07/21/22 Discharge Diagnosis: s/p section Hospital Course: Pt is a 26 yo who presents @35wk EGA with c/o SROM early in the am but did not have palpable contractions. She was grossly ruptured. She has had 2 previous LTCS and desired a repeat. She delivered a liveborn female with Apgars of 8/8 and weight of 5#1oz. Postoperatively she did quite well and on POD #1 was discharged to home so she could be with her baby who was transferred to NICU. discharge instructions were discussed with pt. Labs and Pending Lab Test: Laboratory Tests 07/21/22 05:25: White Blood Count 11.8H, Red Blood Count 3.58L, Hemoglobin 11.2L, Hematocrit 33L , Mean Corpuscular Volume 92, Mean Corpuscular Hemoglobin 31, Mean Corpuscular Hemoglobin Concent 34, Red Cell Distribution Width 14.2, Platelet Count 185, Mean Platelet Volume 10.0, Immature Granulocyte % (Auto) 1, Neutrophils (%) (Auto) 64, Lymphocytes (%) (Auto) 23, Monocytes (%) (Auto) 9, Eosinophils (%) (Auto) 2, Basophils (%) (Auto) 0, Neutrophils # (Auto) 7.6, Lymphocytes # (Auto) 2.8, Monocytes # (Auto) 1.1H, Eosinophils # (Auto) 0.2, Basophils # (Auto) 0.1, Immature Granulocyte # (Auto) 0.1 Home Meds Active Docusate Sodium 100 Mg Capsule 100 Mg PO BID 14 Days take 1 tablet by mouth every 12hrs Hydrocodone-Acetamin 5-325 mg (Hydrocodone/Acetaminophen) 5 Mg-325 Mg Tablet 1-2 Ea PO Q6H PRN Take 1 or 2 tablets every 6hrs as needed for pain Assessment/Pt Instructions DC to home DC instructions: Call if increase pain , vaginal bleeding or increase temp over 100.4F F/U in 1 week control d/w pt. Discharge Instructions Discharge Diet: Regular Diet Activity as Tolerated: Yes Discharge Physical Examination General Appearance: Alert, Oriented X3 Cardiovascular: Regular Rate Abdominal: Normal Bowel Sounds, Soft, No Tenderness, Other (incision site well healed) Extremities: No Clubbing, No Cyanosis, No Edema Skin: No Rashes, No Breakdown Allergies: Coded Allergies: No Known Drug Allergies (Unverified , 03/24/18) Discharge Summary Date of Admission July 20, 2022 at 06:53 Date of Discharge Discharge Date: July 21, 2022 Admission Diagnosis section delivered. Discharge Diagnosis section delivered. (1) delivery delivered (2) Previous section Clinical Quality Measures DVT/VTE Risk/Contraindication: VTE Addressed: Yes VTE Present on Admission: No RFS Level Per Nursing on Admit: 2=Moderate DVT/VTE Prophylaxis Comfirm.Dx Pharmacological not ordered: Ambulating ARMAND PORTILLO DO July 21, 2022 11:32
[2022-07-21] MEDS ORDERED: RHO(D) IMMUNE GLOBULIN 300 MCG/2 ML SYRINGE ONE (11:33)
--- NOTE | 2022-07-21 11:34 | Postpartum Progress Note ---
Note Note Day #1 Subjective: Patient is without complaints. Ambulating, voiding. Tolerating a regular diet without nausea or vomiting. Normal lochia. Pain is well controlled with oral pain medications. pumping breatmilk feeding. [] Objective: [] Physical Exam: General - Alert and oriented, no apparent distress Breasts symmetrical no erythema or engorgement Abdomen - Soft, appropriately tender to palpation, non-distended, fundus firm at umbilicus Incision site well healed Lochia minimal Extremities - no edema, negative Lowell's bilaterally Assessment: [] post- day # 1, status post delivery. Recovering well, hemodynamically stable Plan: Routine care. Encourage breast feeding. Encourage ambulation. Ferrous sulfate supplementation. Plan for discharge f/u in 1 week Vitals - Labs Vital Signs - I&O Vital Signs Date Time Temp Pulse Resp B/P (MAP) Pulse Ox O2 Delivery O2 Flow Rate FiO2 07/21/22 10:03 36.3 104 18 137/77 (97) 100 Room Air 07/21/22 05:59 36.3 77 18 131/83 (99) 96 Room Air 07/21/22 02:11 37.2 89 18 103/67 (79) 97 Room Air 07/20/22 21:29 36.6 75 20 114/74 (87) 99 Room Air 07/20/22 17:50 35.9 73 18 113/79 (90) 100 Room Air I & O 07/21/22 07:00 Intake Total 2650 ml Output Total 1050 ml Balance 1600 ml Labs Laboratory Tests 07/21/22 05:25: White Blood Count 11.8H, Red Blood Count 3.58L, Hemoglobin 11.2L, Hematocrit 33L , Mean Corpuscular Volume 92, Mean Corpuscular Hemoglobin 31, Mean Corpuscular Hemoglobin Concent 34, Red Cell Distribution Width 14.2, Platelet Count 185, Mean Platelet Volume 10.0, Immature Granulocyte % (Auto) 1, Neutrophils (%) (Auto) 64, Lymphocytes (%) (Auto) 23, Monocytes (%) (Auto) 9, Eosinophils (%) (Auto) 2, Basophils (%) (Auto) 0, Neutrophils # (Auto) 7.6, Lymphocytes # (Auto) 2.8, Monocytes # (Auto) 1.1H, Eosinophils # (Auto) 0.2, Basophils # (Auto) 0.1, Immature Granulocyte # (Auto) 0.1 ARMAND PORTILLO DO July 21, 2022 11:34
--- NOTE | 2022-07-22 05:46 | Anesthesia-Regional Post-Op ---
Regional Significant Intra-Op Events Notes late entry 07/21/22 @ 0700 Patient Condition Mental Status: Alert, Oriented x3 Circulation: Same as Pre-Op Headache: Absent Sensation: Full Recovery Motor Block: Absent Post Op Complications Complications None Follow Up Care/Instructions Patient Instructions None needed. Anesthesia/Patient Condition Patient is doing well, no complaints, stable vital signs, no apparent adverse anesthesia problems. No complications reported per nursing. IVANNA CONTRERAS CRNA July 22, 2022 05:46
== END 2022-07-21 12:00 | disposition home or self-care (01) | DRG 786 ==
LOC: LDRP 06:27 → WSo 06:27 → LDRP 06:53
PROVIDERS: ADMIT Obstetrics & Gynecology; ATTEND Obstetrics & Gynecology
PROC: 10D00Z1 Extraction of Products of Conception, Low, Open Approach (ICD-10-PCS; principal; 2022-07-20 09:27)
DX: O34.211 Maternal care for low transverse scar from previous cesarean delivery (principal); O60.14X0 Preterm labor third trimester with preterm delivery third trimester, not applicable or unspecified; Z3A.35 35 weeks gestation of pregnancy; Z37.0 Single live birth; O42.913 Preterm premature rupture of membranes, unspecified as to length of time between rupture and onset of labor, third trimester
CPT/HCPCS: 36415; 83033; 84112; 85025; 86780; 86850; 86900; 86901; 99212

== ENCOUNTER 2022-10-10 21:59 | Emergency (ER) | payer MEDICAID ==
--- NOTE | 2022-10-10 22:39 | ED EENT ---
History of Present Illness General Chief Complaint: Oral/Throat Problems Stated Complaint: SORE THROAT Nursing Triage Note: PT AMB TO FT1 WITH CC OF SORE THROAT SINCE 10/03. PT STATES WAS SEEN AT [facility] ON 10/05 TESTED NEG FOR STREP, WAS SEEN AT [facility] AGAIN FOR SAME CONCERN ON 10/08 WHEN A STREP CULTURE WAS PERFORMED AND CAME BACK NEG. PT REPORTS INCREASE THROAT SORENESS, VOMITING AND PEACE. NO RESP DISTESS NOTICED Source: patient Exam Limitations: no limitations (DEBBIE MAGALLANES) History of Present Illness Date Seen by Provider: Oct 10, 2022 Time Seen by Provider: 22:36 Initial Comments Patient is a 27-year-old female presents ED with sore throat. Sore throat start ed on October 03. She was seen at [facility] on the tested negative for strep. She returned back on the for continued pain was discharge with amoxicillin. She had a negative strep culture. She states she has taken 2 days worth of amoxicillin. She still complaining of sore throat. She vomited once secondary to coughing with a mild headache. She denies of any chest pain, shortness of breath, visual changes, ear pain, abdominal pain, dysuria, hematuria, fever, chills, body. She is currently breast-feeding. (DEBBIE MAGALLANES) Allergies and Home Medications Allergies Coded Allergies: No Known Drug Allergies (Unverified , 03/24/18) Patient Home Medication List Home Medication List Reviewed: Yes (DEBBIE MAGALLANES) Docusate Sodium (Docusate Sodium) 100 Mg Capsule, 100 MG PO BID Prescribed by: Kelly Parra on 07/21/22 1106 Hydrocodone/Acetaminophen (Hydrocodone-Acetamin 5-325 mg) 5 Mg-325 Mg Tablet, 1- 2 EA PO Q6H PRN for PAIN-MODERATE (5-7) Prescribed by: Kelly Prara on 07/21/22 1106 Review of Systems Review of Systems Constitutional: No chills, No diaphoresis, No fever, No malaise, No weakness Eyes: Denies Blurred Vision, Denies Drainage, Denies Decreased Acuity, Denies Photophobia, Denies Previous Injury Ears: Denies Dizziness, Denies Pain Nose: denies clots, denies congestion Mouth: denies clots, denies loose teeth, denies swelling Throat: pain, swelling Respiratory: cough; No dyspnea on exertion Gastrointestinal: No constipation, No nausea; vomiting Musculoskeletal: No back pain, No joint pain Skin: No change in color (DEBBIE MAGALLANES) Past Fygzmts-Derxtj-Glkjpj Hx Patient Social History Tobacco Use?: No Substance use?: No Alcohol Use?: No Pt feels they are or have been: No (DEBBIE MAGALLANES) Immunizations Up To Date Tetanus Booster (TDap): Unknown (DEBBIE MAGALLANES) Seasonal Allergies Seasonal Allergies: No (DEBBIE MAGALLANES) Past Medical History Surgeries: Yes (ERCP) Section, Gallbladder Respiratory: No Currently Using CPAP: No Currently Using BIPAP: No Cardiac: No Neurological: No Reproductive Disorders: No Female Reproductive Disorders: Denies Sexually Transmitted Disease: No HIV/AIDS: No Genitourinary: No Gastrointestinal: No Gastroesophageal Reflux, Gall Bladder Disease Musculoskeletal: No Endocrine: No HEENT: No Cancer: No Psychosocial: No Integumentary: No Blood Disorders: No (DEBBIE MAGALLANES) Family Medical History Asthma G8 BROTHER Diabetes mellitus (GRANDMOTHER) Diabetes (DEBBIE MAGALLANES) Physical Exam Vital Signs Vital Signs - First Documented 10/10/22 22:14 Temp 36.2 Pulse 89 Resp 14 B/P (MAP) 133/83 (100) Pulse Ox 98 O2 Delivery Room Air ([facility]) Height, Weight, BMI Height: 5'0.00" Weight: 204lbs. 2.0oz. [id number]; 40.05 BMI Method:Stated General Appearance: WD/WN, no apparent distress Eyes: bilateral eye normal inspection, bilateral eye PERRL, bilateral eye EOMI Ears: bilateral ear auricle normal, bilateral ear canal normal, bilateral ear TM normal Nose: normal inspection Mouth/Throat: other (Oropharynx with swollen tonsils. No uvula deviation. Tolerating secretions. No stridor. No cervical adenopathy. 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 Patient vital signs stable. Tolerating secretions. No stridor. Does not appear in acute distress. Episode of vomiting today with cough with sore throat. Discharged with amoxicillin 2 days ago has only taken 2 days worth. Exam otherwise benign. Tonsils are swollen without evidence of uvula deviation suggesting tonsillar abscess. No evidence suggesting retropharyngeal abscess. No evidence of Lion angina. Patient is currently breast-feeding limiting medication. Did this suggests continue with the amoxicillin as she has only taken 2 days worth. Discussed with patient that this could be more viral in n ature. She does have a postnasal drip. Patient requesting work note. Discussed if continued pain, not tolerating secretions, wheezing to return back to ED. Follow-up your PCP in 2 to 3 days for reevaluation. Tylenol for pain. Gargling salt water (DEBBIE MAGALLANES) Impression Primary Impression: Pharyngitis Disposition: 01 HOME, SELF-CARE Condition: Stable Departure-Patient Inst. Decision time for Depature: 22:38 (DEBBIE MAGALLANES) Referrals: [facility] (PCP/Family) Primary Care Physician Patient Instructions: Sore Throat, Adult ED Add. Discharge Instructions: Continue with your amoxicillin. Tylenol for pain. If continue worsening pain over the next 2 to 3 days may consider other treatment options. All discharge instructions reviewed with patient and/or family. Voiced understanding. Work/School Note: Work Release Form Date Seen in the Emergency Department: Oct 10, 2022 Return to Work: Oct 14, 2022 ATTENDING PHYSICIAN NOTE: I WAS PHYSICALLY PRESENT ER PHYSICIAN BUT I WAS NOT INVOLVED IN ANY DECISION MAKING OR ANY CARE OF THIS PATIENT AND I AM NOT COLLABORATING PHYSICIAN (DENIZ JOHNSON DO) DEBBIE MAGALLANES Oct 10, 2022 22:39 DENIZ JOHNSON DO Oct 11, 2022 04:58
[2022-10-10 22:44] VITALS: BP 133/83
== END 2022-10-10 22:44 | disposition home or self-care (01) ==
LOC: EDUNIT# 21:59 → ER 22:00
DX: J02.9 Acute pharyngitis, unspecified (principal)
CPT/HCPCS: 99283

== ENCOUNTER 2022-12-05 21:30 | Emergency (ER) | payer MEDICAID ==
[~2022-12-05] VITALS: Ht 152.4 cm; Wt 92.9 kg
[2022-12-05] MEDS ORDERED: Tetanus/Diphtheria/Pertussis (Acell) ADULT Vaccine 0.5 ML IM ONE (21:45)
--- NOTE | 2022-12-05 21:45 | ED Upper Extremity ---
General Stated Complaint: LT THUMB WOUND Source: patient Exam Limitations: no limitations History of Present Illness Date Seen by Provider: Dec 05, 2022 Time Seen by Provider: 21:42 Initial Comments Patient is a 27-year-old female presents ED with a laceration to her left thumb. This occurred 15 minutes ago. She was cutting a toy with a pocket knife when it slipped resulting in a less than 1 cm laceration to the left palmar thumb. She reports bleeding at the time. Bleeding controlled. Not on blood thinners. Normal range of motion. Up-to-date on tetanus. Skin is near approximated. Does not appear deep into the muscle tissue. Allergies and Home Medications Allergies Coded Allergies: No Known Drug Allergies (Unverified , 03/24/18) Patient Home Medication List Home Medication List Reviewed: Yes Docusate Sodium (Docusate Sodium) 100 Mg Capsule, 100 MG PO BID Prescribed by: Kelly Parra on 07/21/22 1106 Hydrocodone/Acetaminophen (Hydrocodone-Acetamin 5-325 mg) 5 Mg-325 Mg Tablet, 1- 2 EA PO Q6H PRN for PAIN-MODERATE (5-7) Prescribed by: Kelly Parra on 07/21/22 1106 Review of Systems Constitutional: No chills, No diaphoresis EENTM: No ear pain, No blurred vision, No double vision Respiratory: No cough, No dyspnea on exertion Cardiovascular: No chest pain Gastrointestinal: No abdominal pain, No diarrhea, No nausea, No vomiting Genitourinary: No decreased output, No discharge Musculoskeletal: No back pain; joint pain Skin: change in color All Other Systems Reviewed Negative Unless Noted: Yes Past Emkutnm-Ezbjhl-Boehrm Hx Immunizations Up To Date Tetanus Booster (TDap): Unknown Seasonal Allergies Seasonal Allergies: No Past Medical History Surgeries: Yes (ERCP) Section, Gallbladder Respiratory: No Currently Using CPAP: No Currently Using BIPAP: No Cardiac: No Neurological: No Reproductive Disorders: No Female Reproductive Disorders: Denies Sexually Transmitted Disease: No HIV/AIDS: No Genitourinary: No Gastrointestinal: No Gastroesophageal Reflux, Gall Bladder Disease Musculoskeletal: No Endocrine: No HEENT: No Cancer: No Psychosocial: No Integumentary: No Blood Disorders: No Family Medical History Asthma G8 BROTHER Diabetes mellitus (GRANDMOTHER) Diabetes Physical Exam Vital Signs Vital Signs - First Documented 12/05/22 21:39 Pulse 73 Resp 18 B/P (MAP) 128/80 (96) Pulse Ox 98 O2 Delivery Room Air Capillary Refill : Height, Weight, BMI Height: 5'0.00" Weight: 204lbs. 2.0oz. 92.387806cu; 40.05 BMI Method:Stated General Appearance: WD/WN, no apparent distress HEENT: PERRL/EOMI, normal ENT inspection, TMs normal, pharynx normal Neck: non-tender, full range of motion, supple Cardiovascular: regular rate, rhythm, no edema, no gallop, no JVD Respiratory: chest non-tender, lungs clear, normal breath sounds, no respiratory distress, no accessory muscle use Gastrointestinal: normal bowel sounds, non tender, soft, no organomegaly Back: normal inspection, no CVA tenderness Shoulder: normal inspection, non-tender, no evidence of injury Elbow/Forearm: normal inspection, non-tender, no evidence of injury, Left Wrist: Yes normal inspection, Yes non-tender Hand: normal ROM (Normal range of motion of the left thumb at the DIP, PIP), Left Neurologic/Tendon: normal sensation, normal motor functions Neurologic/Psychiatric: feed grinder II-XII nml as tested, no motor/sensory deficits, alert, normal mood/affect, oriented x 3 Skin: other (Little less than 1 severe left superficial laceration to left palmar thumb. No adipose involvement. Superficial. Bleeding controlled.) Procedures/Interventions Wound Location: Upper Extremities Other Wound Location left thumb Wound Length (cm): 0.8 Wound's Depth, Shape: superficial Wound Explored: clean Irrigated w/ Saline (ccs): 100 Betadine Prep?: Yes Other Closure Supply: Steri Strip 03/21", Mastisol, Wound Adhesive Layer Closure?: 1 Progress/Results/Core Measures Results/Orders My Orders Orders - DEBBIE MAGALLANES Dipht/Pertuss(Acell)/Tet Adult (Dipht/Pe (12/05/22 21:45) Medications Given in ED Current Medications Medications Dose Ordered Sig/Hernandez Route Start Time Stop Time Status Last Admin Dose Admin Diphtheria/ Tetanus/Acell Pertussis 0.5 ml ONCE ONCE IM 12/05/22 21:45 12/05/22 21:46 DC 12/05/22 21:53 0.5 ML Vital Signs/I&O 12/05/22 21:39 Pulse 73 Resp 18 B/P (MAP) 128/80 (96) Pulse Ox 98 O2 Delivery Room Air Departure Communication (PCP) Patient has a less than 1 cm laceration to left plamer thumb. No active bleedin g. Skin is near approximated. Clean cut and superficial. Discussed with patient that this does not appear to need sutures. Was able to place quarter inch Steri-Strip with Mastisol. Applied Dermabond over. Update her tetanus. She is neurovascular intact. No muscular or tendon vomit. Placed in a finger splint. This should heal without any issues. If developing redness or swelling to return back to ED Impression Primary Impression: Finger laceration Disposition: 01 HOME, SELF-CARE Condition: Stable Departure-Patient Inst. Decision time for Depature: 21:45 Referrals: [facility] (PCP/Family) Primary Care Physician Patient Instructions: Laceration Repair With Glue ED Add. Discharge Instructions: Keep the finger covered. If increased redness or swelling to return back to ED. Anti-inflammatories for pain DEBBIE MAGALLANES Dec 05, 2022 21:45
[2022-12-05 22:09] VITALS: BP 128/80
== END 2022-12-05 22:09 | disposition home or self-care (01) ==
LOC: EDUNIT# 21:30 → ER 21:33
DX: S61.012A Laceration without foreign body of left thumb without damage to nail, initial encounter (principal); Z23 Encounter for immunization; W26.0XXA Contact with knife, initial encounter
CPT/HCPCS: 90715